=== PATIENT | female | born 1950 | race Caucasian/White ===

== ENCOUNTER 2016-11-05 05:23 | Day surgery (SDC) | payer MEDICARE, BC ==
[2016-11-05] MEDS ORDERED: Dextrose 5%-Lactated Ringers 1,000 ML IV SCH (06:00)
[2016-11-05] MEDS ORDERED: Propofol 200 MG/20 ML SDV ONE ×2 (07:06→07:08)
[2016-11-05] MEDS ORDERED: Midazolam 1 MG/ML 2 ML SDV ONE (07:14)
[2016-11-05] MEDS ORDERED: fentaNYL 100 MCG/2 ML SDV ONE (07:14)
[2016-11-05] MEDS ORDERED: Glycopyrrolate 0.2 MG/ML 2 ML SYRINGE IVPUSH ONE (07:15)
[2016-11-05 08:53] VITALS: BP 113/89
--- NOTE | 2016-11-08 13:23 | OR ---
DATE OF PROCEDURE: 11/05/2016 PREOPERATIVE DIAGNOSIS: History of Garcia's esophagus. POSTOPERATIVE DIAGNOSIS: History of Garcia's esophagus. PROCEDURE: Esophagogastroduodenoscopy with biopsies of the distal esophagus and esophagogastric junction. ANESTHESIA: IV sedation. INDICATION FOR PROCEDURE: This 65-year-old female with known history of Garcia's esophagus, status post Carmen fundoplication, and with this she has good symptom control. Plan is to proceed with an upper GI endoscopy with biopsies as indicated. Potential risks including bleeding and perforation were discussed, and the patient wishes to proceed. DETAILS OF PROCEDURE: The patient was taken to the operating room and was placed in a left lateral decubitus position. IV sedation was administered, after which the upper GI endoscope was passed orally through the length of the esophagus and into the stomach with retroflexion view of the fundus, and thereafter through the pyloric channel and into the duodenum. FINDINGS: Included normal hypopharynx, larynx, upper esophageal sphincter, and esophageal body. At the EG junction, there was a quite extensive upper extension of the gastroesophageal junction mucosal line. There were also multiple islands of gastric-type mucosa present, all consistent with Garcia's esophagus. There was no gross inflammation present and the patient had an intact Carmen effect. There was no plaque formation that suggested neoplastic change per site and the patient had no stricturing within the stomach apart from the Carmen effect on retroflexion. Proximal stomach was unremarkable. There were some minimal redness or abnormalities within the remainder of the stomach, pyloric channel, and duodenum to the junction of the third and fourth portions. At this point, multiple biopsies were obtained from all of the areas of potential concern within the distal esophagus and EG junction area. No bleeding from the biopsy sites were seen and the procedure was then concluded. It seemed like we were not seeing any progression toward dysplasia. The plan will be to repeat the endoscopy in 2 years. We will contact the patient regarding Path report and subsequent plan. Mario Garcia MD /[id number]
== END 2016-11-05 09:15 | disposition home or self-care (01) ==
LOC: JP.SDS 05:23
PROVIDERS: ATTEND Surgery
DX: K22.70 Barrett's esophagus without dysplasia (principal); K21.9 Gastro-esophageal reflux disease without esophagitis
CPT/HCPCS: 43239; J2704; J7042; 88305; J2250; J3010

== ENCOUNTER 2017-07-09 09:20 | Emergency (ER) | payer MEDICARE, BC ==
[2017-07-09] MEDS ORDERED: Propranolol 80 MG Cap.ER PO STA (09:58)
--- NOTE | 2017-07-09 10:05 | EDM.PDOC ---
ED HPI GENERAL MEDICAL PROBLEM - General Chief Complaint: Syncope Stated Complaint: MEDICAL VIA [facility] Time Seen by Provider: 07/09/17 09:45 Source of Information: Reports: Patient, EMS, Old Records, RN History Limitations: Reports: No Limitations - History of Present Illness INITIAL COMMENTS - FREE TEXT/NARRATIVE: 66 yo female here via EMS from her home with dizziness, a feeling of near syncope and wavy lines in her vision. Has been seen here in the ER for this this past September and multiple times in the clinic including neurological consultation with no definite cause found. At one point a neurologist theorized that these could be silent migraines and prescribed Topamax, but this made actually caused HUYNH's so it was stopped and nothing was given in its place for migraine prevention. Propranolol was also tried and she did not tolerated this either. Today's spell was the first time she's had the wavy vision, but the rest of her sx's today are familiar. Her symptoms had resolved by the time EMS arrived, but she had a transient recurrence while in the ambulance. Is mostly asymptomatic here in the ER. Her ROS today is otherwise negative. Onset: Today Onset Date: 07/09/17 Onset Time: 08:40 Duration: Minutes:, Resolved Prior to Arrival Location: Reports: Head Quality: Reports: Other (no actual pain) Severity: Moderate Improves with: Reports: Other (? sitting down) Worsens with: Reports: Other (? standing) Context: Reports: Other (Recurrent sx's for many months.) Associated Symptoms: Reports: Syncope (Feels pre-syncopal, has never actually passed out.). 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: Other (see below) (none) - Related Data Allergies Allergy/AdvReac Type Severity Reaction Status Date / Time No Known Allergies Allergy Verified 07/09/17 09:30 Home Meds: Home Meds Aspirin 81 mg PO DAILY 05/30/13 [History] Calcium Carbonate/Vitamin D3 [Calcium 500 + Vit D Caplet] 2 tab PO DAILY [History] Hydrochlorothiazide 25 mg PO DAILY 05/30/13 [History] Meclizine [Antivert] 12.5 mg PO DAILY PRN 05/30/13 [History] Lansoprazole [Prevacid] 30 mg PO DAILY 11/06/13 [History] Albuterol Sulfate [Proair Hfa] 2 puff INH Q4HR PRN 11/01/16 [History] EPINEPHrine [Epipen 2-Jed] 0.3 ml IM ASDIRECTED PRN 11/01/16 [History] Multivitamin with Minerals [Multiple Vitamin] 1 tab PO DAILY 03/08/17 [History] Ascorbic Acid [C-1000] 1 tab PO DAILY 07/09/17 [History] Magnesium Oxide [Magnesium] 500 mg PO ASDIRECTED 07/09/17 [History] Past Medical History HEENT History: Reports: Impaired Vision, Other (See Below) Other HEENT History: wears reading glasses, "ear problem-affecting balance and has noise in my ears" Cardiovascular History: Reports: Hypertension Other Cardiovascular History: History of PVC's Respiratory History: Reports: Bronchitis, Recurrent Gastrointestinal History: Reports: Diverticulosis, GERD Other Gastrointestinal History: Barretts syndrome 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 left arm. patella Neurological History: Reports: Concussion, Vertigo Endocrine/Metabolic History: Reports: Other (See Below) Other Endocrine/Metabolic History: nodule on thyroid being removed 07/16/17 - Infectious Disease History Infectious Disease History: Reports: Chicken Pox, Measles, Mumps - Past Surgical History HEENT Surgical History: Reports: Oral Surgery GI Surgical History: Reports: Appendectomy, EGD, Carmen Fundoplication Musculoskeletal Surgical History: Reports: Hip Replacement Social & Family History - Family History Family Medical History: Noncontributory - Tobacco Use Smoking Status *Q: Heavy Tobacco Smoker Years of Tobacco use: 50 Packs/Tins Daily: 1 Used Tobacco, but Quit: No Second Hand Smoke Exposure: No - Caffeine Use Caffeine Use: Reports: Coffee Other Caffeine Use: 8 cups per day - Alcohol Use Days Per Week of Alcohol Use: 2 Number of Drinks Per Day: 3 Total Drinks Per Week: 6 - Recreational Drug Use Recreational Drug Use: No ED ROS GENERAL - Review of Systems Review Of Systems: See Below Constitutional: Reports: No Symptoms HEENT: Reports: Vision Change (wavy vision transiently). Denies: Dental Pain, Ear Discharge, Ear Pain, Eye Discharge, Eye Pain, Hearing Loss, Nosebleed, Sinus Problem, Throat Pain, Throat Swelling Respiratory: Reports: No Symptoms Cardiovascular: Reports: Lightheadedness (with sx's today, not now), Syncope ( feels pre-syncopal when affected). Denies: Chest Pain, Blood Pressure Problem, Dyspnea on Exertion, Edema, Orthopnea Endocrine: Reports: No Symptoms GI/Abdominal: Reports: No Symptoms : Reports: No Symptoms Musculoskeletal: Reports: No Symptoms Skin: Reports: No Symptoms Neurological: Reports: Dizziness (when symptomatic), Difficulty Walking (when symptomatic). Denies: Confusion, Headache, Numbness, Seizure, Tingling, Change in Speech, Gait Disturbance Psychiatric: Reports: No Symptoms ED EXAM, DIZZINESS - Physical Exam Exam: See Below Exam Limited By: No Limitations General Appearance: Alert, WD/WN, No Apparent Distress Eye Exam: Bilateral Eye: EOMI, Normal Inspection, PERRL Nystagmus: No: worsens with head to L, worsens with head to R, reproducible, reversible, constant, short duration Ears: Normal External Exam, Normal Canal, Hearing Grossly Normal, Normal TMs Nose: Normal Inspection, Normal Mucosa, No Blood Throat/Mouth: Normal Inspection, Normal Lips, Normal Teeth, Normal Oropharynx, Normal Voice, No Airway Compromise Head Exam: Atraumatic, Normocephalic Vertigo: No: worsens with head to L, worsens with head to R, reproducible, reversible, constant, short duration Neck: Normal Inspection, Supple, Non-Tender Respiratory/Chest: No Respiratory Distress, Lungs Clear, Normal Breath Sounds, No Accessory Muscle Use Cardiovascular: Regular Rate, Rhythm, No Edema GI/Abdominal: Normal Bowel Sounds, Soft, Non-Tender, No Distention Neurological: Alert, Normal Mood/Affect, Normal Dorsiflexion, CN II-XII Intact, No Motor/Sensory Deficits, Oriented x 3 Extremities: Normal Inspection, Normal Range of Motion, Non-Tender, No Pedal Edema Psychiatric: Normal Affect, Normal Mood Skin Exam: Warm, Dry, Intact, Normal Color, No Rash Course - Vital Signs Last Recorded V/S: Last Vital Signs Temp 36.7 C 07/09/17 09:26 Pulse 77 07/09/17 10:53 Resp 16 07/09/17 10:53 BP 157/70 H 07/09/17 10:53 Pulse Ox 94 L 07/09/17 10:53 Orthostatic Blood Pressure [ 148/82 Standing] Orthostatic Blood Pressure [ 139/76 Sitting] Orthostatic Blood Pressure [ 125/81 Supine] - Orders/Labs/Meds Orders: Active Orders 24 hr Category Date Time Status Cardiac Monitoring [RC] .As Directed Care 07/09/17 09:28 Active Orthostatic Vital Signs [RC] ASDIRECTED Care 07/09/17 09:28 Active Labs: Laboratory Tests 07/09/17 Range/Units 10:00 Sodium 142 (140-148) mmol/L Potassium 3.6 (3.6-5.2) mmol/L Chloride 107 (100-108) mmol/L Carbon Dioxide 26 (21-32) mmol/L Anion Gap 9.5 (5.0-14.0) mmol/L BUN 11 (7-18) mg/dL Creatinine 0.7 (0.6-1.0) mg/dL Est Cr Clr Drug Dosing 60.84 mL/min Estimated GFR (MDRD) > 60 (>60) Glucose 92 (74-106) mg/dL Calcium 8.7 (8.5-10.1) mg/dL Magnesium 1.5 L (1.8-2.4) mg/dL Meds: Medications Discontinued Medications Generic Name Dose Route Start Last Admin Trade Name Freq PRN Reason Stop Dose Admin Magnesium Oxide 800 mg 07/09/17 10:42 07/09/17 10:52 Magnesium Oxide PO 07/09/17 10:43 800 mg ONETIME ONE Administration Propranolol HCl 80 mg 07/09/17 09:58 07/09/17 10:52 Inderal La PO 07/09/17 09:59 Not Given NOW STA Departure - Departure Time of Disposition: 11:15 Disposition: Home, Self-Care 01 Condition: Good Clinical Impression: Migraine variant, Hypomagnesemia - Discharge Information Referrals: PCP,None [Ordering Only Provider] - Forms: ED Department Discharge - My Orders Last 24 Hours: My Active Orders 07/09/17 09:28 Cardiac Monitoring [RC] .As Directed Orthostatic Vital Signs [RC] ASDIRECTED - Assessment/Plan Last 24 Hours: My Active Orders 07/09/17 09:28 Cardiac Monitoring [RC] .As Directed Orthostatic Vital Signs [RC] ASDIRECTED
[2017-07-09] MEDS ORDERED: Magnesium Oxide 400 MG Tab PO ONE (10:42)
[2017-07-09 10:53] VITALS: BP 157/70
== END 2017-07-09 11:27 | disposition home or self-care (01) ==
LOC: JP.ED 09:20
DX: E83.42 Hypomagnesemia (principal); G43.809 Other migraine, not intractable, without status migrainosus; I10 Essential (primary) hypertension; K21.9 Gastro-esophageal reflux disease without esophagitis; F17.210 Nicotine dependence, cigarettes, uncomplicated; Z79.82 Long term (current) use of aspirin; Z79.899 Other long term (current) drug therapy
CPT/HCPCS: 36415; 80048; 83735; 99284; A9270

== ENCOUNTER 2018-03-04 06:15 | Day surgery (SDC) | payer MEDICARE, BC ==
[2018-03-04] MEDS ORDERED: Bacitracin Oint 1 GM U/D Packet ONE (06:31)
[2018-03-04] MEDS ORDERED: Meropenem 500 MG in Sodium Chloride 0.9% 50 ML IV ONE (07:00)
[2018-03-04] MEDS ORDERED: Dextrose 5%-Lactated Ringers 1,000 ML IV SCH (07:00)
[2018-03-04] MEDS: Bupivacaine 0.5% 50 ML MDV ONE ×2 (07:02→08:03)
[2018-03-04] MEDS: Lidocaine 1% with EPINEPHrine 1:100,000 50 ML MDV ONE ×2 (07:03→08:03)
[2018-03-04] MEDS ORDERED: Propofol 200 MG/20 ML SDV ONE ×2 (07:06→07:07)
[2018-03-04] MEDS ORDERED: Midazolam 1 MG/ML 2 ML SDV ONE (07:06)
[2018-03-04] MEDS ORDERED: fentaNYL 100 MCG/2 ML SDV ONE (07:06)
[2018-03-04 09:43] VITALS: BP 141/86
--- NOTE | 2018-03-05 13:20 | OR ---
DATE OF PROCEDURE: 03/04/2018 PREOPERATIVE DIAGNOSES: 1. Irritated keratosis, right flank. 2. Inflamed epidermoid cyst, posterior base of neck. POSTOPERATIVE DIAGNOSES: 1. Irritated keratosis, right flank .. 2. Inflamed epidermoid cyst, posterior base of neck. OPERATIVE PROCEDURE: 1. Excision of irritated keratosis, right flank with layered closure ([id number]). 2. Excision of inflamed epidermoid cyst, posterior basal left neck with layered closure ([id number]). ANESTHESIA: Local plus IV sedation. INDICATION FOR PROCEDURE: The patient presents with an epidermoid cyst. This has been longstanding at the base of the left neck posteriorly. This recently began draining and has had some smoldering inflammation, but has decreased in size and appears ready for excision and at right flank, the patient has keratotic skin lesion that was also catching on her clothing and such and chronically irritated. Based on that, the plan is to proceed with excision of each of these. Potential risks including bleeding and infection were reviewed, and the patient wishes to proceed. DETAILS OF PROCEDURE: The patient was taken to the operating room, placed in a supine position. IV sedation was administered, after which the area around the right flank was prepped and draped. The area was anesthetized with 1% lidocaine mixed with Marcaine. A transversely oriented elliptical incision around the lesion removing a small amount of normal tissue around it was made and carried down through the skin and subcutaneous tissue and the lesion removed intact. The lesion plus margin itself was 1.2 cm and a layered closure of the incision length of 2.3 cm was accomplished with some 5-0 Vicryl stitch deep and a 5-0 Prolene skin stitch. The patient was then repositioned to expose the posterior aspect of the left neck. That area of the epidermis was then anesthetized with 1% lidocaine mixed with Marcaine, and a transverse elliptical incision was once again made through the skin and subcutaneous tissue and the cyst removed intact. In this case, the lesion plus margin itself measured 2.1 cm and a layered closure of 5.2 cm was accomplished with a deeper layer of 4-0 Vicryl stitch was placed followed by more superficial 5-0 Vicryl stitch and then a 5-0 Prolene skin stitch. Dressing was applied. The patient was taken to the recovery room in satisfactory condition. There were no complications. Mario Garcia MD /[id number]
== END 2018-03-04 10:08 | disposition home or self-care (01) ==
LOC: JP.SDS 06:15
PROVIDERS: ATTEND Surgery
DX: L82.0 Inflamed seborrheic keratosis (principal); L72.0 Epidermal cyst; I10 Essential (primary) hypertension; Z91.030 Bee allergy status
CPT/HCPCS: 11402; 11423; 12031; 12042; 88304; 88305; J2185; J2250; J2704; J3010; J3490; J7042; J7050

== ENCOUNTER 2018-04-29 16:48 | Emergency (ER) | payer MEDICARE, BC ==
[2018-04-29 17:23] VITALS: BP 145/76
[2018-04-29] MEDS ORDERED: Aspirin 81 MG Tab.Chew PO ONE (17:31)
--- NOTE | 2018-04-29 17:34 | EDM.PDOC ---
ED HPI GENERAL MEDICAL PROBLEM - General Chief Complaint: Chest Pain Stated Complaint: CHEST PAIN Time Seen by Provider: 04/29/18 17:27 Source of Information: Reports: Patient, RN Notes Reviewed History Limitations: Reports: No Limitations - History of Present Illness INITIAL COMMENTS - FREE TEXT/NARRATIVE: 67-year-old female presents to the emergency department today complaint of chest pain, states the chest pain started earlier today was present for a couple hours now has resolved she is chest pain-free at this time. No cardiac history, no nausea vomiting shortness of breath no diaphoresis. Does have a history of Garcia's esophagus denies Pain Score (Numeric/FACES): 0 - Related Data Allergies Allergy/AdvReac Type Severity Reaction Status Date / Time bee venom protein (honey bee) Allergy Cannot Verified 04/29/18 17:14 Remember Home Meds: Home Meds Aspirin 81 mg PO DAILY 05/30/13 [History] Calcium Carbonate/Vitamin D3 [Calcium 500 + Vit D Caplet] 2 tab PO DAILY [History] Meclizine [Antivert] 12.5 mg PO DAILY PRN 05/30/13 [History] hydroCHLOROthiazide [Hydrochlorothiazide] 25 mg PO DAILY 05/30/13 [History] Lansoprazole [Prevacid] 30 mg PO DAILY 11/06/13 [History] Albuterol Sulfate [Proair Hfa] 2 puff INH Q4HR PRN 11/01/16 [History] EPINEPHrine [Epipen 2-Jed] 0.3 ml IM ASDIRECTED PRN 11/01/16 [History] Multivitamin with Minerals [Multiple Vitamin] 1 tab PO DAILY 03/08/17 [History] Magnesium Oxide [Magnesium] 400 mg PO DAILY 07/09/17 [History] Fluticasone Propionate [Flonase] 2 spray JOSEP DAILY 02/28/18 [History] Levothyroxine [Synthroid] 88 mcg PO DAILY 02/28/18 [History] Past Medical History HEENT History: Reports: Impaired Vision, Other (See Below) Other HEENT History: wears reading glasses, "ear problem-affecting balance and has noise in my ears" Cardiovascular History: Reports: Hypertension Other Cardiovascular History: History of PVC's Respiratory History: Reports: Bronchitis, Recurrent Gastrointestinal History: Reports: Diverticulosis, GERD, Hiatal Hernia Other Gastrointestinal History: Barretts syndrome 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 left arm. patella Neurological History: Reports: Concussion, Vertigo Endocrine/Metabolic History: Reports: Other (See Below) Other Endocrine/Metabolic History: nodule on thyroid being removed 07/16/17 Oncologic (Cancer) History: Reports: Thyroid - Infectious Disease History Infectious Disease History: Reports: Chicken Pox, Measles, Mumps - Past Surgical History HEENT Surgical History: Reports: Oral Surgery Cardiovascular Surgical History: Reports: None Respiratory Surgical History: Reports: None GI Surgical History: Reports: Appendectomy, EGD, Carmen Fundoplication Endocrine Surgical History: Reports: Thyroidectomy Neurological Surgical History: Reports: Scoliosis Musculoskeletal Surgical History: Reports: Hip Replacement Social & Family History - Family History Family Medical History: Noncontributory - Tobacco Use Smoking Status *Q: Current Every Day Smoker Years of Tobacco use: 50 Packs/Tins Daily: 1 Used Tobacco, but Quit: No Second Hand Smoke Exposure: Yes - Caffeine Use Caffeine Use: Reports: Coffee Other Caffeine Use: 8 cups per day - Alcohol Use Days Per Week of Alcohol Use: 0 - Recreational Drug Use Recreational Drug Use: No ED ROS GENERAL - Review of Systems Review Of Systems: See Below Constitutional: Reports: No Symptoms. Denies: Diaphoresis HEENT: Reports: No Symptoms Respiratory: Reports: No Symptoms Cardiovascular: Reports: Chest Pain GI/Abdominal: Reports: No Symptoms. Denies: Nausea, Vomiting : Reports: No Symptoms Musculoskeletal: Reports: No Symptoms Skin: Reports: No Symptoms ED EXAM, GENERAL - Physical Exam Exam: See Below Exam Limited By: No Limitations General Appearance: Alert, WD/WN, No Apparent Distress Neck: Normal Inspection, Supple, Non-Tender, Full Range of Motion Respiratory/Chest: No Respiratory Distress, Lungs Clear, Normal Breath Sounds, No Accessory Muscle Use, Chest Non-Tender Cardiovascular: Regular Rate, Rhythm, No Murmur GI/Abdominal: Normal Bowel Sounds, Soft, Tender (Tender epigastric region) Course - Vital Signs Last Recorded V/S: Last Vital Signs Temp 96.2 F 04/29/18 17:22 Pulse 70 04/29/18 17:22 Resp 20 04/29/18 17:22 BP 145/76 H 04/29/18 17:22 Pulse Ox 96 04/29/18 17:22 - Orders/Labs/Meds Orders: Active Orders 24 hr Category Date Time Status Cardiac Monitoring [RC] .As Directed Care 04/29/18 17:31 Active EKG Documentation Completion [RC] ASDIRECTED Care 04/29/18 17:31 Active Chest 1V Frontal [CR] Stat Exams 04/29/18 17:31 Taken EKG 12 Lead [EK] Stat Ther 04/29/18 17:31 Ordered Labs: Laboratory Tests 04/29/18 04/29/18 Range/Units 17:45 17:45 WBC 8.5 (4.5-11.0) K/uL RBC 5.03 (3.30-5.50) M/uL Hgb 14.9 (12.0-15.0) g/dL Hct 44.6 (36.0-48.0) % MCV 89 (80-98) fL MCH 30 (27-31) pg MCHC 33 (32-36) % Plt Count 419 H (150-400) K/uL Neut % (Auto) 65 (36-66) % Lymph % (Auto) 24 (24-44) % Wise % (Auto) 8 H (2-6) % Eos % (Auto) 3 (2-4) % Baso % (Auto) 0 (0-1) % Sodium 140 (140-148) mmol/L Potassium 3.2 L (3.6-5.2) mmol/L Chloride 103 (100-108) mmol/L Carbon Dioxide 26 (21-32) mmol/L Anion Gap 14.2 H (5.0-14.0) mmol/L BUN 10 (7-18) mg/dL Creatinine 0.8 (0.6-1.0) mg/dL Est Cr Clr Drug Dosing 52.49 mL/min Estimated GFR (MDRD) > 60 (>60) Glucose 88 (74-106) mg/dL Calcium 8.6 (8.5-10.1) mg/dL Total Bilirubin 0.6 (0.2-1.0) mg/dL AST 18 (15-37) U/L ALT 27 (12-78) U/L Alkaline Phosphatase 61 (46-116) U/L Troponin I < 0.017 (0.000-0.056) ng/mL Total Protein 6.4 (6.4-8.2) g/dL Albumin 3.5 (3.4-5.0) g/dL Globulin 2.9 (2.3-3.5) g/dL Albumin/Globulin Ratio 1.2 (1.2-2.2) Meds: Medications Discontinued Medications Generic Name Dose Route Start Last Admin Trade Name Vlad PRN Reason Stop Dose Admin Aspirin 324 mg 04/29/18 17:31 04/29/18 17:40 Aspirin PO 04/29/18 17:32 324 mg ONETIME ONE Administration Departure - Departure Time of Disposition: 18:20 Disposition: Home, Self-Care 01 Condition: Fair Clinical Impression: Gastroesophageal reflux disease Qualifiers: Esophagitis presence: esophagitis presence not specified Qualified Code(s): K21.9 - Gastro-esophageal reflux disease without esophagitis Referrals: Srinivas Peterson MD [Primary Care Provider] - Forms: ED Department Discharge Additional Instructions: Please followup with your primary care provider in 3-5 days if not better, please call return to the emergency department with worsening of symptoms. - My Orders Last 24 Hours: My Active Orders 04/29/18 17:31 Cardiac Monitoring [RC] .As Directed EKG Documentation Completion [RC] ASDIRECTED Chest 1V Frontal [CR] Stat EKG 12 Lead [EK] Stat - Assessment/Plan Last 24 Hours: My Active Orders 04/29/18 17:31 Cardiac Monitoring [RC] .As Directed EKG Documentation Completion [RC] ASDIRECTED Chest 1V Frontal [CR] Stat EKG 12 Lead [EK] Stat Plan: Assessment Acuity = acute Site and laterality = epigastric pain complicated patient with known history of Garcia's esophagus Etiology = probable gastroesophageal reflux disease Manifestations = none Location of injury = Home Lab values = CBC unremarkable, potassium low at 3.2 consistent hypokalemia, troponin is negative, EKG demonstrates normal sinus rhythm similar EKG to 2017 chest x-ray I did review films myself I cannot appreciate any acute process, the official read from radiology is pending Plan I did review lab work EKG chest x-ray results with her her heart score is 3 she is in the low risk category she elected to do watchful waiting she's, continue to follow-up with her primary care provider next 3-5 days if no improvement] This note was dictated using [employer] voice recognition software please call with any questions on syntax or grammar.
--- NOTE | 2018-04-30 08:26 | CR ---
CHEST: Portable CLINICAL HISTORY:Chest pain COMPARISON:2017 FINDINGS: The heart size, pulmonary vascular and hilar structures are normal. No infiltrate effusion or pneumothorax is seen. The lungs are hyperaerated. There is a small granuloma in the right lower l obe. IMPRESSION: No acute cardiopulmonary process. Emphysematous changes
== END 2018-04-29 18:35 | disposition home or self-care (01) ==
LOC: JP.ED 16:48
DX: K21.9 Gastro-esophageal reflux disease without esophagitis (principal); I10 Essential (primary) hypertension; F17.210 Nicotine dependence, cigarettes, uncomplicated; Z79.82 Long term (current) use of aspirin; Z79.899 Other long term (current) drug therapy; Z91.030 Bee allergy status
CPT/HCPCS: 36415; 71045; 80053; 84484; 85025; 93005; 99285; A9270

== ENCOUNTER 2018-09-12 11:29 | Emergency (ER) | payer MEDICARE, BC ==
[2018-09-12 11:39] VITALS: BP 147/84
--- NOTE | 2018-09-12 12:06 | EDM.PDOC ---
ED HPI GENERAL MEDICAL PROBLEM - General Chief Complaint: Neurological Problem Stated Complaint: [facility] Time Seen by Provider: 09/12/18 11:55 Source of Information: Reports: Patient, EMS, Old Records History Limitations: Reports: No Limitations - History of Present Illness INITIAL COMMENTS - FREE TEXT/NARRATIVE: 67 yo female with chronic light-headedness that waxes and wanes for a couple yrs presents via EMS for a transient worsening of the same. Has seen many specialists and has had blood work and no explanation has been uncovered. She was traveling by car to a [employer] appt with her brother driving and she mentioned that she was worse and he stopped and called 911. She is much better on arrival. EMS noted normal vitals. She has a BP machine at home and has always had normal BP and HR when she gets her spells(often while seated). She has no recent fever, diarrhea, nausea, vomting, or bleeding. No vertigo. Does have migraines that are generally without the HUYNH component. Rx have been tried for the migraines without benefit. Wonders if these spells are actually migraines. No syncopal episodes. 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: Other (see below) (none) - Related Data Allergies Allergy/AdvReac Type Severity Reaction Status Date / Time bee venom protein (honey bee) Allergy Cannot Verified 09/12/18 11:31 Remember Home Meds: Home Meds Aspirin 81 mg PO DAILY 05/30/13 [History] Calcium Carbonate/Vitamin D3 [Calcium 500 + Vit D Caplet] 1 tab PO DAILY [History] hydroCHLOROthiazide [Hydrochlorothiazide] 25 mg PO DAILY 05/30/13 [History] Lansoprazole [Prevacid] 30 mg PO DAILY 11/06/13 [History] Albuterol Sulfate [Proair Hfa] 2 puff INH Q4HR PRN 11/01/16 [History] EPINEPHrine [Epipen 2-Jed] 0.3 ml IM ASDIRECTED PRN 11/01/16 [History] Multivitamin with Minerals [Multiple Vitamin] 1 tab PO DAILY 03/08/17 [History] Magnesium Oxide [Magnesium] 400 mg PO DAILY 07/09/17 [History] Fluticasone Propionate [Flonase] 2 spray JOSEP DAILY 02/28/18 [History] Levothyroxine [Synthroid] 88 mcg PO DAILY 02/28/18 [History] Potassium Chloride 20 meq PO DAILY 09/09/18 [History] clonazePAM [Klonopin] 0.5 mg PO BID 09/09/18 [History] Past Medical History HEENT History: Reports: Impaired Vision, Other (See Below) Other HEENT History: wears reading glasses, "ear problem-affecting balance and has noise in my ears" Cardiovascular History: Reports: Hypertension Other Cardiovascular History: History of PVC's Respiratory History: Reports: Bronchitis, Recurrent Gastrointestinal History: Reports: Diverticulosis, GERD, Hiatal Hernia Other Gastrointestinal History: Barretts syndrome [employer]OR [employer]ING 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 left arm. patella Neurological History: Reports: Concussion, Migraines, Vertigo Endocrine/Metabolic History: Reports: Hypothyroidism, Other (See Below) Other Endocrine/Metabolic History: nodule on thyroid being removed 07/16/17 Oncologic (Cancer) History: Reports: Thyroid - Infectious Disease History Infectious Disease History: Reports: Chicken Pox, Measles, Mumps - Past Surgical History Head Surgeries/Procedures: Reports: None Cardiovascular Surgical History: Reports: None Respiratory Surgical History: Reports: None GI Surgical History: Reports: Appendectomy, EGD, Carmen Fundoplication Endocrine Surgical History: Reports: Thyroidectomy Neurological Surgical History: Reports: Scoliosis Musculoskeletal Surgical History: Reports: Hip Replacement Oncologic Surgical History: Reports: None Social & Family History - Family History Family Medical History: Noncontributory - Tobacco Use Smoking Status *Q: Current Every Day Smoker Years of Tobacco use: 40 Packs/Tins Daily: 1 Used Tobacco, but Quit: No Second Hand Smoke Exposure: No - Caffeine Use Caffeine Use: Reports: Coffee Other Caffeine Use: 8 cups per day - Recreational Drug Use Recreational Drug Use: No ED ROS GENERAL - Review of Systems Review Of Systems: See Below Constitutional: Reports: No Symptoms HEENT: Reports: No Symptoms Respiratory: Reports: No Symptoms Cardiovascular: Reports: Lightheadedness Endocrine: Reports: No Symptoms GI/Abdominal: Reports: No Symptoms : Reports: No Symptoms Musculoskeletal: Reports: No Symptoms Skin: Reports: No Symptoms Neurological: Reports: No Symptoms Psychiatric: Reports: No Symptoms ED EXAM, NEURO - Physical Exam Exam: See Below Exam Limited By: No Limitations General Appearance: Alert, WD/WN, No Apparent Distress Eye Exam: Bilateral Eye: Normal Inspection, PERRL Ears: Normal External Exam, Normal Canal, Hearing Grossly Normal, Normal TMs Nose: Normal Inspection, Normal Mucosa, No Blood Throat/Mouth: Normal Inspection, Normal Lips, Normal Oropharynx, Normal Voice, No Airway Compromise Head Exam: Atraumatic, Normocephalic Neck: Normal Inspection, Non-Tender Respiratory/Chest: No Respiratory Distress, Lungs Clear, Normal Breath Sounds, No Accessory Muscle Use Cardiovascular: Regular Rate, Rhythm, No Edema GI/Abdominal: Normal Bowel Sounds, Soft, Non-Tender, No Distention Neurological: Alert, Normal Mood/Affect, Normal Dorsiflexion, CN II-XII Intact, No Motor/Sensory Deficits, Oriented x 3 Back Exam: Normal Inspection. No: CVA Tenderness (R), CVA Tenderness (L) Extremities: Normal Inspection, Normal Range of Motion, Non-Tender, No Pedal Edema Psychiatric: Normal Affect, Normal Mood Skin Exam: Warm, Dry, Intact, Normal Color, No Rash Course - Vital Signs Last Recorded V/S: Last Vital Signs Temp 36.6 C 09/12/18 11:38 Pulse 71 09/12/18 11:38 Resp 16 09/12/18 11:38 BP 147/84 H 09/12/18 11:38 Pulse Ox 96 09/12/18 11:38 - Orders/Labs/Meds Orders: Active Orders 24 hr Category Date Time Status Orthostatic Vital Signs [RC] ASDIRECTED Care 09/12/18 11:59 Inactive Departure - Departure Time of Disposition: 12:16 Disposition: Home, Self-Care 01 Condition: Good Clinical Impression: Light headedness - Discharge Information *PRESCRIPTION DRUG MONITORING PROGRAM REVIEWED*: No *COPY OF PRESCRIPTION DRUG MONITORING REPORT IN PATIENT SHIRLENE: No Referrals: PCP,None [Primary Care Provider] - Forms: ED Department Discharge Additional Instructions: Continue your current meds. Try the "natural" migraine prevention strategies to see if they can reduce the frequency of your attacks. - My Orders Last 24 Hours: My Active Orders 09/12/18 11:59 Orthostatic Vital Signs [RC] ASDIRECTED - Assessment/Plan Last 24 Hours: My Active Orders 09/12/18 11:59 Orthostatic Vital Signs [RC] ASDIRECTED
== END 2018-09-12 12:36 | disposition home or self-care (01) ==
LOC: JP.ED 11:29
DX: R42 Dizziness and giddiness (principal); F17.210 Nicotine dependence, cigarettes, uncomplicated; I10 Essential (primary) hypertension; E03.9 Hypothyroidism, unspecified; K21.9 Gastro-esophageal reflux disease without esophagitis; Z79.82 Long term (current) use of aspirin; Z79.899 Other long term (current) drug therapy; Z91.030 Bee allergy status
CPT/HCPCS: 99284

== ENCOUNTER 2018-09-25 07:18 | Day surgery (SDC) | payer MEDICARE, BC ==
[~2018-09-25 07:18] MED LIST: Midazolam 1 MG/ML 2 ML SDV ONE; Propofol 200 MG/20 ML SDV ONE; fentaNYL 100 MCG/2 ML SDV ONE
[2018-09-25] MEDS ORDERED: Dextrose 5%-Lactated Ringers 1,000 ML IV SCH (07:30)
[2018-09-25 11:03] VITALS: BP 141/76
--- NOTE | 2018-09-29 13:15 | OR ---
DATE OF PROCEDURE: 09/25/2018 PREOPERATIVE DIAGNOSIS: Right upper abdominal pain. POSTOPERATIVE DIAGNOSES: 1. Right abdominal pain with. a. 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 b. Mild antral gastritis. 2. Flexible colonoscopy showing limited sigmoid colon diverticulosis. OPERATIVE PROCEDURES: 1. Esophagogastroduodenoscopy with antral biopsies for CLOtest ([id number]). 2. Flexible colonoscopy with random colorectal biopsies to rule out microscopic colitis ([id number]). ANESTHESIA: IV sedation. INDICATION FOR PROCEDURE: This is a 67-year-old presenting with some right upper quadrant pain. The plan is to proceed with upper and lower endoscopies with biopsies and/or polypectomies as indicated. Potential risks including bleeding and perforation were discussed, and the patient wishes to proceed. DETAILS OF PROCEDURE: The patient was taken to the operating room and placed in a left lateral decubitus position. IV sedation was administered, after which the upper GI endoscope was passed orally through the length of the esophagus and into the stomach with retroflexion view of the fundus and thereafter through the pyloric channel and into the duodenum at the junction of the third and fourth portions. Findings included normal hypopharynx, larynx, upper esophageal sphincter, and esophageal body. At the EG junction, the patient had an intact Carmen effect. The previously noted Garcia's esophagus appeared to have resolved as there was no upward extension of the gastroesophageal junction mucosal line above the upper gastric folds at this point. There is no stricturing or narrowing at the Carmen fundoplication. Within the antrum, there was some mild patchy redness without erosions or ulcers. The pyloric channel and duodenum at the junction of the third and fourth portions were otherwise unremarkable. Biopsies were then obtained from the antrum and sent for CLOtest for H. pylori. Minimal bleeding from the biopsy site was seen, and the procedure then concluded. Attention was taken to the colonoscopy at this point. Initial digital rectal exam was performed and was unremarkable. Colonoscope was then passed into the level of the rectum with retroflexion revealing uncomplicated hemorrhoidal columns. The scope was then eventually passed to the level of the cecum. The prep was quite good with only small liquid stool being present. Overall, no gross abnormalities were noted. No diverticula. No areas of obvious colitis. No polyps or other signs of neoplasia throughout the length of the colon and rectum. Random colorectal biopsies were obtained to rule out microscopic colitis. Minimal bleeding from the biopsy site was seen, and the procedure then concluded. At this point, we do not have a good answer for the patient's right upper quadrant pain. We will obtain a HIDA scan next Saturday and see her in the clinic following that examination. Mario Garcia MD /[id number]
== END 2018-09-25 10:15 | disposition home or self-care (01) ==
LOC: JP.SDS 07:18
PROVIDERS: ATTEND Surgery
DX: K29.50 Unspecified chronic gastritis without bleeding (principal); K57.30 Diverticulosis of large intestine without perforation or abscess without bleeding; K64.9 Unspecified hemorrhoids; I10 Essential (primary) hypertension; K21.9 Gastro-esophageal reflux disease without esophagitis; C73 Malignant neoplasm of thyroid gland; F17.200 Nicotine dependence, unspecified, uncomplicated; Z91.030 Bee allergy status
CPT/HCPCS: 43239; 45378; 87081; J2250; J2704; J3010; J7042; 88305

== ENCOUNTER 2018-09-27 08:51 | Emergency (ER) | payer MEDICARE, BC ==
[2018-09-27 08:54] VITALS: BP 132/72
[2018-09-27] MEDS ORDERED: Ondansetron 4 MG/2 ML SDV IVPUSH ONE (08:58)
[2018-09-27] MEDS ORDERED: HYDROmorphone 0.5 MG/0.5 ML Syringe IVPUSH ONE ×2 (08:59→09:16)
[2018-09-27] MEDS ORDERED: Sodium Chloride 0.9% 1,000 ML IV SCH (09:00)
[2018-09-27] MEDS ORDERED: HYDROmorphone 0.5 MG/0.5 ML Syringe ONE (09:17)
[2018-09-27] MEDS ORDERED: Iopamidol 612 MG/ML 100 ML Bottle IV STA (09:48)
--- NOTE | 2018-09-27 11:54 | CRLCT ---
Indication: Severe abdominal pain. Technique: Multiple contiguous axial images were obtained from the lung bases through the symphysis pubis after the intravenous administration of 100 milliliters Isovue. Please note that all CT scans at this facility use dose modulation, iterative reconstruction, and/or weight-based dosing when appropriate to reduce radiation dose to as low as reasonably achievable. Comparison: July 23, 2018. Findings: Heart is normal in size. Coronary artery calcifications are identified. Emphysematous changes are identified at the lung bases. Scar is identified within the lung bases. The liver, gallbladder, spleen, pancreas, adrenals, and kidneys are normal. No intrahepatic biliary ductal dilatation is identified. Surgical clips are identified in the left upper quadrant. No hydronephrosis is identified. In the pelvis, the urinary bladder is normal. No definite uterus is seen. Streak artifact from a right hip arthroplasty degrades multiple images. The small and large bowel are normal in caliber. No free air or free fluid is identified within the abdomen or pelvis. The aorta is normal in caliber. There is questionable thickening of the wall of the stomach. This can be seen with gastritis. Degenerative changes of the spine are seen. Impression: Questionable thickening of the wall of the stomach, which can be seen with gastritis. Emphysema. Please note that all CT scans at this facility use dose modulation, iterative reconstruction, and/or weight-based dosing when appropriate to reduce radiation dose to as low as reasonably achievable. Dictated by Shelbie Medel MD @ Sep 27 2018 11:37AM Signed by Dr. Shelbie Medel @ Sep 27 2018 11:53AM
--- NOTE | 2018-09-27 12:42 | EDM.PDOC ---
ED HPI GENERAL MEDICAL PROBLEM - General Chief Complaint: Abdominal Pain Stated Complaint: [facility] Time Seen by Provider: 09/27/18 09:00 Source of Information: Reports: Patient History Limitations: Reports: No Limitations - History of Present Illness INITIAL COMMENTS - FREE TEXT/NARRATIVE: pt arrived with very acute pain in the rt upper abdoman. She had alot pain in the abdoman with deep breathing. She was not vomiting. She had a colonoscopy 2 days ago with some biopsies. Onset: Today, Sudden Duration: Hour(s): Location: Reports: Abdomen, Other ( very severe abdomanal pain) Associated Symptoms: Reports: No Other Symptoms - Related Data Allergies Allergy/AdvReac Type Severity Reaction Status Date / Time bee venom protein (honey bee) Allergy Cannot Verified 09/25/18 07:34 Remember Home Meds: Home Meds Aspirin 81 mg PO DAILY 05/30/13 [History] hydroCHLOROthiazide [Hydrochlorothiazide] 25 mg PO DAILY 05/30/13 [History] Lansoprazole [Prevacid] 30 mg PO DAILY 11/06/13 [History] Albuterol Sulfate [Proair Hfa] 2 puff INH Q4HR PRN 11/01/16 [History] EPINEPHrine [Epipen 2-Jed] 0.3 ml IM ASDIRECTED PRN 11/01/16 [History] Multivitamin with Minerals [Multiple Vitamin] 1 tab PO DAILY 03/08/17 [History] Magnesium Oxide [Magnesium] 400 mg PO DAILY 07/09/17 [History] Fluticasone Propionate [Flonase] 2 spray JOSEP DAILY 02/28/18 [History] Levothyroxine [Synthroid] 88 mcg PO DAILY 02/28/18 [History] Potassium Chloride 20 meq PO DAILY 09/09/18 [History] clonazePAM [Klonopin] 0.5 mg PO BID PRN 09/09/18 [History] Past Medical History HEENT History: Reports: Impaired Vision, Other (See Below) Other HEENT History: wears reading glasses, "ear problem-affecting balance and has noise in my ears" Cardiovascular History: Reports: Hypertension Other Cardiovascular History: History of PVC's Respiratory History: Reports: Bronchitis, Recurrent Gastrointestinal History: Reports: Diverticulosis, GERD, Hiatal Hernia Other Gastrointestinal History: Barretts syndrome 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 left arm. patella Neurological History: Reports: Concussion, Migraines, Vertigo Endocrine/Metabolic History: Reports: Hypothyroidism, Other (See Below) Other Endocrine/Metabolic History: nodule on thyroid being removed 07/16/17 Oncologic (Cancer) History: Reports: Thyroid - Infectious Disease History Infectious Disease History: Reports: Chicken Pox, Measles, Mumps, Rubella - Past Surgical History Head Surgeries/Procedures: Reports: None HEENT Surgical History: Reports: None Cardiovascular Surgical History: Reports: None Respiratory Surgical History: Reports: None GI Surgical History: Reports: Appendectomy, Colonoscopy, EGD, Carmen Fundoplication Endocrine Surgical History: Reports: Thyroidectomy Neurological Surgical History: Reports: Scoliosis Musculoskeletal Surgical History: Reports: Hip Replacement Oncologic Surgical History: Reports: None Dermatological Surgical History: Reports: None Social & Family History - Family History Family Medical History: Noncontributory - Tobacco Use Smoking Status *Q: Never Smoker - Caffeine Use Caffeine Use: Reports: Coffee Other Caffeine Use: 8 cups per day - Recreational Drug Use Recreational Drug Use: No ED ROS GENERAL - Review of Systems Review Of Systems: See Below Constitutional: Reports: No Symptoms HEENT: Reports: No Symptoms Respiratory: Reports: No Symptoms Cardiovascular: Reports: No Symptoms Endocrine: Reports: No Symptoms GI/Abdominal: Reports: Abdominal Pain, Other (pt had a colonoscopy 2 days ago. ) : Reports: No Symptoms Musculoskeletal: Reports: No Symptoms Skin: Reports: No Symptoms Neurological: Reports: No Symptoms ED EXAM, GI/ABD - Physical Exam Exam: See Below Text/Narrative:: pt arrived with acute pain in the rt side of the abdoman. She did have a colonoscopy 2 daysag. She has not been vomiting . She is very uncomfortable at this time. Exam Limited By: No Limitations General Appearance: Alert, Anxious, Severe Distress Ears: Normal TMs Nose: Normal Inspection Throat/Mouth: Normal Inspection Head: Atraumatic Neck: Normal Inspection Respiratory/Chest: No Respiratory Distress Cardiovascular: Regular Rate, Rhythm GI/Abdominal Exam: Other ( Pt has severe distress in the upper rt abdoman. ) (Female) Exam: Deferred Rectal (Female) Exam: Deferred Back Exam: Normal Inspection Extremities: Normal Inspection Neurological: Alert, Oriented, Normal Cognition Psychiatric: Anxious Course - Vital Signs Last Recorded V/S: Last Vital Signs Temp 36.2 C 09/27/18 08:56 Pulse Resp 14 09/27/18 08:56 BP 132/72 09/27/18 08:56 Pulse Ox - Orders/Labs/Meds Orders: Active Orders 24 hr Category Date Time Status Sodium Chloride 0.9% [Normal Saline] 1,000 ml Med 09/27/18 09:00 Active IV ASDIRECTED Medication Orders Sodium Chloride (Normal Saline) 1,000 mls @ 500 mls/hr IV ASDIRECTED DARIUSZ Last Admin: 09/27/18 09:08 Dose: 500 mls/hr Labs: Laboratory Tests 09/27/18 09/27/18 09/27/18 Range/Units 09:05 09:05 11:49 WBC 12.2 H (4.5-11.0) K/uL RBC 4.84 (3.30-5.50) M/uL Hgb 14.7 (12.0-15.0) g/dL Hct 44.2 (36.0-48.0) % MCV 91 (80-98) fL MCH 30 (27-31) pg MCHC 33 (32-36) % Plt Count 459 H (150-400) K/uL Neut % (Auto) 80 H (36-66) % Lymph % (Auto) 13 L (24-44) % Day % (Auto) 6 (2-6) % Eos % (Auto) 1 L (2-4) % Baso % (Auto) 0 (0-1) % Sodium 145 (140-148) mmol/L Potassium 3.2 L (3.6-5.2) mmol/L Chloride 105 (100-108) mmol/L Carbon Dioxide 28 (21-32) mmol/L Anion Gap 15.2 H (5.0-14.0) mmol/L BUN 11 (7-18) mg/dL Creatinine 0.8 (0.6-1.0) mg/dL Est Cr Clr Drug Dosing 52.49 mL/min Estimated GFR (MDRD) > 60 (>60) Glucose 97 (74-106) mg/dL Calcium 9.0 (8.5-10.1) mg/dL Total Bilirubin 1.1 H D (0.2-1.0) mg/dL AST 14 L (15-37) U/L ALT 24 (12-78) U/L Alkaline Phosphatase 63 (46-116) U/L C-Reactive Protein 1.14 H (0.0-0.3) mg/dL Total Protein 6.6 (6.4-8.2) g/dL Albumin 3.4 (3.4-5.0) g/dL Globulin 3.2 (2.3-3.5) g/dL Albumin/Globulin Ratio 1.1 L (1.2-2.2) Urine Color Yellow Urine Appearance Clear Urine pH 7.0 (4.5-8.0) Ur Specific [place] 1.010 (1.008-1.030) Urine Protein Negative (NEGATIVE) mg/dL Urine Glucose (UA) Normal (NEGATIVE) mg/dL Urine Ketones Negative (NEGATIVE) mg/dL Urine Occult Blood Negative (NEGATIVE) Urine Nitrite Negative (NEGATIVE) Urine Bilirubin Negative (NEGATIVE) Urine Urobilinogen 1 (NORMAL) mg/dL Ur Leukocyte Esterase Small (NEGATIVE) Urine RBC 0-5 (0-5) Urine WBC 5-10 H (0-5) Ur Epithelial Cells Moderate Amorphous Sediment Not seen Urine Bacteria Few Urine Mucus Moderate Meds: Medications Generic Name Dose Route Start Last Admin Trade Name Vlad PRN Reason Stop Dose Admin Sodium Chloride 1,000 mls @ 500 mls/hr 09/27/18 09:00 09/27/18 09:08 Normal Saline IV 500 mls/hr ASDIRECTED DARIUSZ Administration Discontinued Medications Generic Name Dose Route Start Last Admin Trade Name Vlad PRN Reason Stop Dose Admin Hydromorphone HCl 0.5 mg 09/27/18 08:59 09/27/18 09:06 Dilaudid IVPUSH 09/27/18 09:00 0.5 mg ONETIME ONE Administration Hydromorphone HCl 0.5 mg 09/27/18 09:16 09/27/18 09:19 Dilaudid IVPUSH 09/27/18 09:17 0.5 mg ONETIME ONE Administration Hydromorphone HCl Confirm 09/27/18 09:17 09/27/18 09:50 Dilaudid Administered 09/27/18 09:18 Not Given Dose 0.5 mg .ROUTE .STK-MED ONE Sodium Chloride 70 mls @ 3 mls/sec 09/27/18 09:48 09/27/18 10:59 Normal Saline IV 09/27/18 09:49 3 mls/sec ASDIRECTED STA Administration Iopamidol 100 ml 09/27/18 09:48 09/27/18 10:59 Isovue-300 (61%) IV 09/27/18 09:49 100 ml . DIRECTED STA Administration Ondansetron HCl 4 mg 09/27/18 08:58 09/27/18 09:06 Zofran IVPUSH 09/27/18 08:59 4 mg ONETIME ONE Administration Pantoprazole Sodium 40 mg 09/27/18 13:52 09/27/18 14:08 Protonix Iv IVPUSH 09/27/18 13:53 40 mg ONETIME ONE Administration - Re-Assessments/Exams Free Text/Narrative Re-Assessment/Exam: 09/27/18 12:43 Pt arrived having very severe abdomanal pain mainly on the rt side. Her lab work showed mild elevation of the wbc at 12,000. Her crp was mildly elevated. Her other labs looked good except her k remains on the low side. 09/27/18 13:49 Pt had a cat scan which did not show free air. She has remained pain free since the pain was settled down. Departure - Departure Time of Disposition: 13:50 Disposition: Home, Self-Care 01 Condition: Fair Clinical Impression: Abdominal pain, Normal colonoscopy, Gastrointestinal irritation - Discharge Information Instructions: Abdominal Pain, Adult, [id number] Referrals: PCP,None [Primary Care Provider] - Forms: ED Department Discharge Care Plan Goals: rtc if pain should reoccur, lite diet today mainly liquids, prilosec 20mg daily for 10days. at bedtime, cont prevacid in the am. RTc as scheduled for the scan, on sat. See Dr Garcia after the scan - My Orders Last 24 Hours: My Active Orders 09/27/18 09:00 Sodium Chloride 0.9% [Normal Saline] 1,000 ml IV ASDIRECTED - Assessment/Plan Last 24 Hours: My Active Orders 09/27/18 09:00 Sodium Chloride 0.9% [Normal Saline] 1,000 ml IV ASDIRECTED
[2018-09-27] MEDS ORDERED: Pantoprazole 40 MG Vial IVPUSH ONE (13:52)
== END 2018-09-27 15:12 | disposition home or self-care (01) ==
LOC: JP.ED 08:51
DX: K31.89 Other diseases of stomach and duodenum (principal); I10 Essential (primary) hypertension; R10.11 Right upper quadrant pain; Z91.030 Bee allergy status; Z79.82 Long term (current) use of aspirin; Z79.899 Other long term (current) drug therapy
CPT/HCPCS: 36415; 74177; 80053; 81001; 85025; 86140; 96361; 96374; 96375; 99285; C9113; J1170; J2405; J7030; Q9967

== ENCOUNTER 2018-10-07 08:18 | Day surgery (SDC) | payer MEDICARE, BC ==
[~2018-10-07 08:18] MED LIST changes: +Dexamethasone 4 MG/ML SDV ONE; +Glycopyrrolate 0.2 MG/ML 5 ML MDV ONE; -Midazolam 1 MG/ML 2 ML SDV ONE; +Neostigmine Methylsulfate 1 MG/ML 5 ML Syringe ONE; +Ondansetron 4 MG/2 ML SDV ONE; +Rocuronium 50 MG/5 ML Vial ONE; +Succinylcholine 200 MG/10 ML MDV ONE; -fentaNYL 100 MCG/2 ML SDV ONE; +fentaNYL 250 MCG/5 ML SDV ONE
[2018-10-07] MEDS ORDERED: Acetaminophen 500 MG Tab PO ONE (08:30)
[2018-10-07] MEDS ORDERED: Dextrose 5%-Lactated Ringers 1,000 ML IV SCH (09:00)
[2018-10-07] MEDS ORDERED: Albuterol/Ipratropium 3.0-0.5 MG/3 ML Neb Soln NEB ONE (09:30)
[2018-10-07] MEDS ORDERED: cefOXitin 2 GM in Sodium Chloride 0.9% 50 ML IV ONE (10:00)
[2018-10-07] MEDS ORDERED: Ketamine 500 MG/5 ML MDV IV SCH (10:15)
[2018-10-07] MEDS ORDERED: Ropivacaine 31 ML, Dexamethasone 8 MG, EPINEPHrine 0.4 MG, Sodium Chloride 0.9% 46.6 ML NERVRT SCH ×4 (10:15)
[2018-10-07] MEDS ORDERED: Lactated Ringers 1,000 ML ONE (11:02)
[2018-10-07] MEDS ORDERED: fentaNYL 100 MCG/2 ML SDV ONE (11:19)
[2018-10-07] MEDS ORDERED: Sugammadex Sodium 200 MG/2 ML VIAL ONE (11:43)
[2018-10-07] MEDS: Ondansetron 4 MG/2 ML SDV IVPUSH PRN ×2 (12:47→17:14)
[2018-10-07] MEDS ORDERED: Acetaminophen/HYDROcodone 325-5 MG Tab PO PRN (12:55)
[2018-10-07] MEDS ORDERED: ClonazePAM 0.5 MG Tab PO PRN (12:57)
[2018-10-07] MEDS ORDERED: Albuterol/Ipratropium 3.0-0.5 MG/3 ML Neb Soln INH PRN (13:01)
[2018-10-07] MEDS ORDERED: Pantoprazole 40 MG Vial IV SCH (14:00)
[2018-10-07] MEDS ORDERED: HYDROmorphone 1 MG/ML Syringe IVPUSH PRN (14:36)
[2018-10-07] MEDS: Albuterol/Ipratropium 3.0-0.5 MG/3 ML Neb Soln INH SCH ×2 (14:49→20:27)
[2018-10-07] MEDS: Dextrose 5%-Lact Ringers w/KCl 1,000 ML IV SCH (15:06)
[2018-10-07] MEDS: cefOXitin 2 GM in Sodium Chloride 0.9% 50 ML IV SCH ×2 (16:23→22:06)
[2018-10-08] MEDS: Dextrose 5%-Lact Ringers w/KCl 1,000 ML IV SCH (01:06)
[2018-10-08] MEDS: cefOXitin 2 GM in Sodium Chloride 0.9% 50 ML IV SCH (03:41)
[2018-10-08] MEDS ORDERED: Levothyroxine 88 MCG Tab PO SCH (06:00)
[2018-10-08] MEDS: Albuterol/Ipratropium 3.0-0.5 MG/3 ML Neb Soln INH SCH ×2 (07:08→10:36)
[2018-10-08] MEDS ORDERED: Hydrochlorothiazide 25 MG Tab PO SCH (09:00)
[2018-10-08] MEDS ORDERED: Aspirin 81 MG Tab.EC PO SCH (09:00)
[2018-10-08] MEDS ORDERED: Fluticasone Propionate Nasal Spray 16 GM Bottle NASBOTH SCH (09:00)
[2018-10-08 11:01] VITALS: BP 122/56
--- NOTE | 2018-10-09 13:25 | DISCH ---
ADMISSION DIAGNOSIS: Biliary dyskinesia. DISCHARGE DIAGNOSIS: Laparoscopic cholecystectomy for biliary dyskinesia. Date of surgery, 10/07/2018. HISTORY: Salina Herrmann is with abdominal pain. After preoperative evaluation and discussion of possible risks and possible complications, she wished to proceed with surgical procedure. HOSPITAL COURSE: Salina had her surgery on 10/07/2018. She had no operative complications. On postoperative day #1, her blood pressure was a little bit low compared to what she had prior. It was running 89 to 122/35 to 56. She states she was dizzy, but reports always feeling a little bit dizzy. She had walked back and forth to the bathroom, but not in the barney. Pain was controlled with Tylenol. She did have some nausea, but by later morning felt good enough to be discharged to home. PHYSICAL EXAMINATION: GENERAL: Salina is a 67-year-old female. VITAL SIGNS: Height is 5 feet 2 inches. Weight is 135 pounds. TPR 98.6, 67, 14, and blood pressure 122/56. HEENT: Negative. NECK: Supple. HEART: Regular rate and rhythm. LUNGS: Clear. ABDOMEN: Dressings dry and intact. Abdominal binder is on. EXTREMITIES: Without peripheral edema. DISPOSITION: Discharged to home. CONDITION: Stable and improving. FOLLOWUP APPOINTMENT: On 10/15/2018 at 8 am. HOME MEDICATIONS: Sims 5/325 mg one tablet every 6 hours p.r.n. pain, #30; and Zofran ODT 4 mg q.6 hours p.r.n. nausea. She can resume Tylenol, but not to exceed the recommended daily dose. Continue ProAir inhaler 2 puffs q.4 hours p.r.n. shortness of breath, Ventolin inhaler 2 puffs as directed p.r.n. shortness breath, aspirin 81 mg daily, calcium carbonate one capsule daily, epinephrine 0.3 mL as directed p.r.n. allergies, Flonase 2 sprays nasally in each nostril daily, Prevacid 30 mg oral daily, Synthroid 88 mcg oral daily, magnesium oxide 400 mg oral daily, multivitamin one tablet oral daily, omeprazole 20 mg oral daily, potassium chloride 20 mEq oral daily, Klonopin 0.5 mg oral twice daily p.r.n. dizziness, and hydrochlorothiazide 25 mg oral daily. DISCHARGE DIET: Usual diet as tolerated. Drink 8 to 10 glasses of water a day. ACTIVITY: No lifting greater than 10 pounds for 2 weeks. Other activity: Walk at least 6 times daily, distance and time as tolerated. Driving: Do not drive for 1 week or while on pain medication. Shower/bathing: May shower. DISCHARGE INSTRUCTIONS: Notify provider if any fever, increased pain, nausea, or vomiting. Keep site clean and dry. Wear abdominal binder for 2 weeks and then as tolerated. Use incentive spirometer 10 times every hour while awake.
--- NOTE | 2018-10-13 13:08 | OR ---
DATE OF PROCEDURE: 10/07/2018 PREOPERATIVE DIAGNOSIS: Biliary dyskinesia. POSTOPERATIVE DIAGNOSIS: Biliary dyskinesia. OPERATIVE PROCEDURE: Laparoscopic cholecystectomy (49190). ANESTHESIA: General. 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 Initial endoscopy done showed relatively minimal findings, and a CCK-stimulated HIDA scan was obtained which showed a below-normal ejection fraction as well as reproduction of the patient's symptoms. The plan, therefore, was to proceed with a laparoscopic cholecystectomy. Potential risks of the procedure including bleeding, infection, possible persistence of symptoms postoperatively, injury to the underlying viscera such as common bile duct were all reviewed, and the patient wishes to proceed. DETAILS OF PROCEDURE: The patient was taken to the operating room and placed in a supine position. After general endotracheal anesthesia was induced, the abdomen was prepped and draped. A transverse epigastric incision was made and the peritoneal cavity entered under direct vision with an Optiview trocar and inflated to 15 mmHg pressure with CO2. The laparoscope was reinserted. No underlying trocar insertion site injuries were seen. Following this, bilateral subcostal transversus abdominis plane blocks were placed, and a 12 mm subumbilical trocar was placed along with a 5 mm right upper quadrant trocar. The gallbladder was noted to be intensely distended and somewhat edematous consistent with chronic cholecystitis. The gallbladder was retracted anteriorly and laterally, and dissection began around the gallbladder neck with Harmonic scalpel and continued around the gallbladder neck and cystic duct junction. Once that area was well delineated as well as the adjacent cystic artery, both structures were clipped 3 times proximally, once distally, and divided. The gallbladder was then dissected off the gallbladder bed using the Harmonic scalpel and delivered through the epigastric trocar site. She was noted to have no true stones, but did have some significant areas of sludge with a diameter of around 1 to 2 mm maximally, likely causing some intermittent obstruction of the cystic duct. The area of dissection was inspected, drain was felt not to be necessary. The trocars were sequentially removed. The fascia at the midline sites was closed with 0 Vicryl stitch and the skin with 4-0 Vicryl skin stitch. Dressing was applied. The patient was taken to the recovery room in satisfactory condition. Mario Garcia MD /[id number]
== END 2018-10-08 13:30 | disposition home or self-care (01) ==
LOC: JP.SDS 08:18 → JP.MS 11:50 → JP.SDS 12:40 → JP.MS 12:40 → JP.SDS 10-08 13:49
PROVIDERS: ATTEND Surgery
DX: K81.1 Chronic cholecystitis (principal); K82.8 Other specified diseases of gallbladder; I10 Essential (primary) hypertension; E03.9 Hypothyroidism, unspecified; Z79.899 Other long term (current) drug therapy
CPT/HCPCS: 36415; 47562; 80053; 82247; 83735; 83880; 84075; 84100; 85025; 94640; A9270; C9113; C9399; J0171; J0330; J0694; J1100; J1170; J2405; J2704; J2710; J2795; J3010; J3480; J3490; J7042; J7050; J7120; J7620-GY

== ENCOUNTER 2018-10-09 10:46 | Emergency (ER) | payer MEDICARE, BC ==
[2018-10-09 11:04] VITALS: BP 150/80
--- NOTE | 2018-10-09 12:28 | EDM.PDOC ---
<Kenya Haque - Last Filed: 10/09/18 12:37> ED HPI GENERAL MEDICAL PROBLEM - General Chief Complaint: General Stated Complaint: SHAKY, FAINT FEELING, POST GALBLADER SURGERY Time Seen by Provider: 10/09/18 11:30 Source of Information: Reports: Patient History Limitations: Reports: No Limitations - History of Present Illness INITIAL COMMENTS - FREE TEXT/NARRATIVE: Salina Herrmann is a 67 year old female who presents to the E.D. with concerns of chronic dizziness and tinnitus, for two years. She has seen an ENT specialist and a Neurologist. She has trialed Verapamil, Topamax, Propranolol and Imitrex, without success. She was given Klonopin to trial, but she states she has not been taking it consistently. She has been diagnosed with silent migraine, vestibular migraines, and BPPV over the 2 years. She notes her vision starts to go during the dizzy spells, but denies room spinning sensation. She has been through PT for BPPV, with limited success. Two days ago she started to notice an increase in dizziness after her cholecystectomy. During the dizzy spells, she also loses her balance. She denied any loss of consciousness, fever , or chills. She states they aren't correlated with any certain activity or time of day. They occur daily. She also states since her surgery she has had urinary frequency. She denied dysuria. She denies chest pain, abdominal pain, changes in bowel or night sweats. Further symptoms are denied at this time. - Related Data Allergies Allergy/AdvReac Type Severity Reaction Status Date / Time bee venom protein (honey bee) Allergy Cannot Verified 10/09/18 11:03 Remember Home Meds: Home Meds Aspirin 81 mg PO DAILY 05/30/13 [History] hydroCHLOROthiazide [Hydrochlorothiazide] 25 mg PO DAILY 05/30/13 [History] Lansoprazole [Prevacid] 30 mg PO DAILY 11/06/13 [History] Albuterol Sulfate [Proair Hfa] 2 puff INH Q4HR PRN 11/01/16 [History] EPINEPHrine [Epipen 2-Jed] 0.3 ml IM ASDIRECTED PRN 11/01/16 [History] Multivitamin with Minerals [Multiple Vitamin] 1 tab PO DAILY 03/08/17 [History] Magnesium Oxide [Magnesium] 400 mg PO DAILY 07/09/17 [History] Fluticasone Propionate [Flonase] 2 spray JOSEP DAILY 02/28/18 [History] Levothyroxine [Synthroid] 88 mcg PO DAILY 02/28/18 [History] Potassium Chloride 20 meq PO DAILY 09/09/18 [History] clonazePAM [Klonopin] 0.5 mg PO BID PRN 09/09/18 [History] Calcium Carbonate/Vitamin D3 [Calcium 500 + Vit D Caplet] 1 cap PO DAILY [History] Omeprazole 20 mg PO DAILY 10/03/18 [History] Acetaminophen/HYDROcodone [[place] 325-5 MG] 1 tab PO Q6H PRN #30 tablet 10/08/18 [Rx] Ondansetron [Zofran ODT] 4 mg PO Q6H PRN #30 tab.dis 10/08/18 [Rx] Past Medical History HEENT History: Reports: Impaired Vision, Other (See Below) Other HEENT History: wears reading glasses, "ear problem-affecting balance and has noise in my ears" Cardiovascular History: Reports: Hypertension Other Cardiovascular History: History of PVC's Respiratory History: Reports: Bronchitis, Recurrent Gastrointestinal History: Reports: Diverticulosis, GERD, Hiatal Hernia Other Gastrointestinal History: Barretts syndrome 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 left arm. patella Neurological History: Reports: Concussion, Migraines, Vertigo Endocrine/Metabolic History: Reports: Hypothyroidism, Other (See Below) Other Endocrine/Metabolic History: nodule on thyroid being removed 07/16/17 Oncologic (Cancer) History: Reports: Thyroid - Infectious Disease History Infectious Disease History: Reports: Chicken Pox, Measles, Mumps - Past Surgical History Head Surgeries/Procedures: Reports: None HEENT Surgical History: Reports: None Cardiovascular Surgical History: Reports: None Respiratory Surgical History: Reports: None GI Surgical History: Reports: Appendectomy, Cholecystectomy, Colonoscopy, EGD, Carmen Fundoplication Endocrine Surgical History: Reports: Thyroidectomy Neurological Surgical History: Reports: Scoliosis Musculoskeletal Surgical History: Reports: Hip Replacement Oncologic Surgical History: Reports: None Dermatological Surgical History: Reports: None Social & Family History - Family History Family Medical History: Noncontributory - Tobacco Use Smoking Status *Q: Current Every Day Smoker Years of Tobacco use: 50 Packs/Tins Daily: 0.2 - Caffeine Use Caffeine Use: Reports: Coffee Other Caffeine Use: 8 cups per day - Recreational Drug Use Recreational Drug Use: No ED ROS GENERAL - Review of Systems Review Of Systems: See Below Constitutional: Reports: No Symptoms Respiratory: Reports: Cough Cardiovascular: Reports: No Symptoms Endocrine: Reports: No Symptoms GI/Abdominal: Reports: No Symptoms Skin: Reports: Other (facial flushing) Neurological: Reports: Other (Mild memory loss during dizzy spells) ED EXAM, GENERAL - Physical Exam Exam: See Below Exam Limited By: No Limitations General Appearance: Alert, WD/WN, No Apparent Distress Ears: Normal External Exam, Normal Canal, Hearing Grossly Normal, Normal TMs Nose: Normal Inspection Throat/Mouth: Normal Inspection, Normal Lips, Normal Teeth, Normal Gums, Normal Oropharynx Head: Atraumatic, Normocephalic Neck: Normal Inspection, Supple, Non-Tender, Full Range of Motion Respiratory/Chest: No Respiratory Distress, Lungs Clear, Normal Breath Sounds, No Accessory Muscle Use. No: Crackles, Rales, Rhonchi, Wheezing Cardiovascular: Regular Rate, Rhythm, No Edema Peripheral Pulses: 1+: Posterior Tibial (L), Posterior Tibial (R) GI/Abdominal: Normal Bowel Sounds, Soft, Non-Tender Extremities: Normal Inspection, Non-Tender, No Pedal Edema Neurological: Alert, Oriented, CN II-XII Intact, Normal Cognition, No Motor/ Sensory Deficits Psychiatric: Anxious Skin Exam: Warm, Intact, Normal Color, No Rash Course - Vital Signs Last Recorded V/S: Last Vital Signs Temp 96.2 F 10/09/18 11:07 Pulse 78 10/09/18 11:07 Resp 16 10/09/18 11:07 BP 150/80 H 10/09/18 11:07 Pulse Ox 96 10/09/18 11:07 - Orders/Labs/Meds Orders: Active Orders 24 hr Category Date Time Status CULTURE URINE [RM] Urgent Lab 10/09/18 12:19 Received Labs: Laboratory Tests 10/09/18 Range/Units 11:51 Urine Color Yellow Urine Appearance Clear Urine pH 8.0 (4.5-8.0) Ur Specific [place] 1.005 L (1.008-1.030) Urine Protein Negative (NEGATIVE) mg/dL Urine Glucose (UA) Normal (NEGATIVE) mg/dL Urine Ketones Negative (NEGATIVE) mg/dL Urine Occult Blood Negative (NEGATIVE) Urine Nitrite Negative (NEGATIVE) Urine Bilirubin Negative (NEGATIVE) Urine Urobilinogen Normal (NORMAL) mg/dL Ur Leukocyte Esterase Moderate (NEGATIVE) Urine RBC Not seen (0-5) Urine WBC 5-10 H (0-5) Ur Epithelial Cells Few Amorphous Sediment Not seen Urine Bacteria Not seen Urine Mucus Not seen Departure - Departure Disposition: Home, Self-Care 01 Condition: Fair Clinical Impression: Vestibular migraine - Discharge Information *PRESCRIPTION DRUG MONITORING PROGRAM REVIEWED*: No *COPY OF PRESCRIPTION DRUG MONITORING REPORT IN PATIENT SHIRLENE: No Referrals: Srinivas Peterson MD [Primary Care Provider] - Forms: ED Department Discharge Additional Instructions: Advised to take the Klonopin on a regular, scheduled basis, for at least 2 weeks. Take 0.5 MG, BID. Encouraged to follow up with primary care provider, if the Klonopin does not relieve symptoms as ask about a 4-6 week trial of Effexor (SNRI). Follow up with the ENT in January. - My Orders Last 24 Hours: My Active Orders 10/09/18 12:19 CULTURE URINE [RM] Urgent - Assessment/Plan Last 24 Hours: My Active Orders 10/09/18 12:19 CULTURE URINE [RM] Urgent <TrangrJason - Last Filed: 10/09/18 12:41> ED EXAM, GENERAL - Physical Exam Free Text/Narrative:: Agree with below Departure - Departure Time of Disposition: 12:41 - Assessment/Plan Plan: Assessment Acuity = chronic Site and laterality = dizziness suspected vestibular migraine Etiology = unknown etiology Manifestations = gait instability Location of injury = Home Lab values = urinalysis reveals 5-10 wbc's consists of pyuria cultures pending Plan Did review records from ENT visit as well as prior MRI CT scan and blood work current working diagnosis is vestibular migraine she had been described Klonopin 0.5 mg by mouth twice a day as a choice however she took the medication one time did not get relief and therefore does not use the medication. I did recommend that she take the medication as prescribed by ENT which could be on a daily basis give a good 2 week trial before deciding whether it works or not. Another medication to possibly consider would be an SNRI she does have follow-up appointment with neurology in January This note was dictated using wireWA[employer] voice recognition software please call with any questions on syntax or grammar.
== END 2018-10-09 12:45 | disposition home or self-care (01) ==
LOC: JP.ED 10:46
DX: G43.809 Other migraine, not intractable, without status migrainosus (principal); F17.210 Nicotine dependence, cigarettes, uncomplicated; I10 Essential (primary) hypertension; K21.9 Gastro-esophageal reflux disease without esophagitis; E03.9 Hypothyroidism, unspecified; Z79.82 Long term (current) use of aspirin; Z79.899 Other long term (current) drug therapy; Z91.030 Bee allergy status
CPT/HCPCS: 81001; 87086; 99283

== ENCOUNTER 2019-03-01 15:07 | Emergency (ER) | payer MEDICARE, BC ==
[2019-03-01 15:12] VITALS: BP 146/71; PULSE 79
--- NOTE | 2019-03-01 16:09 | EDM.PDOC ---
ED HPI GENERAL MEDICAL PROBLEM - General Chief Complaint: Chest Pain Stated Complaint: MEDICAL [place] Time Seen by Provider: 03/01/19 15:15 Source of Information: Reports: Patient, EMS History Limitations: Reports: No Limitations - History of Present Illness INITIAL COMMENTS - FREE TEXT/NARRATIVE: 68-year-old female who is brought in by ambulance after struggling with intermittent substernal chest spasms lasting 30-60 seconds but recurring over the course of several hours. She started to worry that they may not be related to her GI system as she has had a extended history of reflux including a Carmen fundoplication. She has no cardiac history. She had no radiation of pain to the jaw or shoulders, no shortness of breath or radiation to the back. EKG done by EMS was negative, she was given aspirin in route. Onset: Sudden (Started fairly suddenly 4-1/2-5 hours ago) Location: Reports: Chest Improves with: Reports: None Associated Symptoms: Reports: No Other Symptoms - Related Data Allergies Allergy/AdvReac Type Severity Reaction Status Date / Time bee venom protein (honey bee) Allergy Cannot Verified 03/01/19 15:30 Remember Home Meds: Home Meds hydroCHLOROthiazide [Hydrochlorothiazide] 25 mg PO DAILY 05/30/13 [History] Lansoprazole [Prevacid] 30 mg PO DAILY 11/06/13 [History] Albuterol Sulfate [Proair Hfa] 2 puff INH Q4HR PRN 11/01/16 [History] EPINEPHrine [Epipen 2-Jed] 0.3 ml IM ASDIRECTED PRN 11/01/16 [History] Multivitamin with Minerals [Multiple Vitamin] 1 tab PO DAILY 03/08/17 [History] Magnesium Oxide [Magnesium] 400 mg PO DAILY 07/09/17 [History] Fluticasone Propionate [Flonase] 2 spray JOSEP DAILY 02/28/18 [History] Levothyroxine [Synthroid] 88 mcg PO DAILY 02/28/18 [History] Potassium Chloride 20 meq PO DAILY 09/09/18 [History] clonazePAM [Klonopin] 0.5 mg PO DAILY 09/09/18 [History] Calcium Carbonate/Vitamin D3 [Calcium 500 + Vit D Caplet] 1 cap PO DAILY [History] Incruse 1 puff INH DAILY 03/01/19 [History] Past Medical History HEENT History: Reports: Impaired Vision, Other (See Below) Other HEENT History: wears reading glasses, "ear problem-affecting balance and has noise in my ears" Cardiovascular History: Reports: Hypertension Other Cardiovascular History: History of PVC's Respiratory History: Reports: Bronchitis, Recurrent Gastrointestinal History: Reports: Diverticulosis, GERD, Hiatal Hernia Other Gastrointestinal History: Barretts syndrome 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 left arm. patella Neurological History: Reports: Concussion, Migraines, Vertigo Endocrine/Metabolic History: Reports: Hypothyroidism, Other (See Below) Other Endocrine/Metabolic History: nodule on thyroid being removed 07/16/17 Oncologic (Cancer) History: Reports: Thyroid - Infectious Disease History Infectious Disease History: Reports: Chicken Pox, Measles, Mumps - Past Surgical History HEENT Surgical History: Reports: None GI Surgical History: Reports: Appendectomy, Cholecystectomy, Colonoscopy, EGD, Carmen Fundoplication Endocrine Surgical History: Reports: Thyroidectomy Neurological Surgical History: Reports: Scoliosis Musculoskeletal Surgical History: Reports: Hip Replacement Social & Family History - Family History Family Medical History: Noncontributory - Tobacco Use Smoking Status *Q: Heavy Tobacco Smoker Years of Tobacco use: 50 Packs/Tins Daily: 1 - Caffeine Use Caffeine Use: Reports: Coffee Other Caffeine Use: 8 cups per day - Recreational Drug Use Recreational Drug Use: No ED ROS GENERAL - Review of Systems Review Of Systems: See Below Constitutional: Denies: Fever, Chills HEENT: Reports: No Symptoms Respiratory: Denies: Shortness of Breath Cardiovascular: Reports: Chest Pain GI/Abdominal: Reports: No Symptoms, Abdominal Pain (Some very upper epigastric abdominal discomfort intermittently, no significant pain) Musculoskeletal: Reports: No Symptoms Skin: Reports: No Symptoms Neurological: Reports: No Symptoms ED EXAM, GENERAL - Physical Exam Exam: See Below Exam Limited By: No Limitations General Appearance: Alert, No Apparent Distress Eye Exam: Bilateral Eye: Normal Inspection Head: Atraumatic Respiratory/Chest: No Respiratory Distress, Lungs Clear Cardiovascular: Regular Rate, Rhythm Course - Vital Signs Last Recorded V/S: Last Vital Signs Temp 98.2 F 03/01/19 15:28 Pulse 79 03/01/19 15:28 Resp 15 03/01/19 15:28 BP 146/71 H 03/01/19 15:28 Pulse Ox 93 L 03/01/19 15:28 - Orders/Labs/Meds Labs: Laboratory Tests 03/01/19 Range/Units 15:30 Troponin I < 0.017 (0.000-0.056) ng/mL - Re-Assessments/Exams Free Text/Narrative Re-Assessment/Exam: 03/01/19 16:14 EKG on arrival was negative, no change from EMS. Explained to the patient that the symptoms are more typical of gastrointestinal and cardiac, but we couldn't rule out damage with a troponin. This was done and was 0. She had no further symptoms while in the emergency room and was discharged. Departure - Departure Time of Disposition: 16:34 Disposition: Home, Self-Care 01 Condition: Good Clinical Impression: Non-cardiac chest pain - Discharge Information Instructions: Nonspecific Chest Pain Referrals: PCP,None [Primary Care Provider] - Forms: ED Department Discharge Care Plan Goals: Continue your current medications and diet. Increase activity as tolerated and return if symptoms are persistent over the next few days, return immediately if pain recurs and is persistent for more than 5-10 minutes.
== END 2019-03-01 16:34 | disposition home or self-care (01) ==
LOC: JP.ED 15:07
DX: R07.89 Other chest pain (principal); I10 Essential (primary) hypertension; E03.9 Hypothyroidism, unspecified; F17.210 Nicotine dependence, cigarettes, uncomplicated; Z91.030 Bee allergy status; Z79.899 Other long term (current) drug therapy
CPT/HCPCS: 36415; 84484; 93005; 93010; 99284; 99285-25

== ENCOUNTER 2019-05-25 12:49 | Emergency (ER) | payer MEDICARE, BC ==
[2019-05-25] MEDS ORDERED: Sodium Chloride 0.9% 10 ML Syringe FLUSH PRN ×2 (12:58→13:43)
[2019-05-25] MEDS ORDERED: HYDROmorphone 0.5 MG/0.5 ML Syringe IVPUSH ONE (12:59)
[2019-05-25] MEDS ORDERED: Sodium Chloride 0.9% 1,000 ML IV ONE (12:59)
[2019-05-25] MEDS ORDERED: LORazepam 2 MG/ML SDV IVPUSH ONE (13:00)
[2019-05-25 13:10] VITALS: BP 159/76; PULSE 85
[2019-05-25] MEDS ORDERED: Iopamidol 612 MG/ML 100 ML Bottle IV PRN (13:43)
--- NOTE | 2019-05-25 14:19 | EDM.PDOC ---
ED HPI GENERAL MEDICAL PROBLEM - General Chief Complaint: Abdominal Pain Stated Complaint: SEVERE ABD PAIN Time Seen by Provider: 05/25/19 12:51 Source of Information: Reports: Patient History Limitations: Reports: No Limitations - History of Present Illness INITIAL COMMENTS - FREE TEXT/NARRATIVE: Salina is a 68 year old female, presents to the ED today with her sister with c/o severe abdominal pain that started at 1030 this morning, nauseated, no vomiting, no diarrhea, had a normal BM yesterday, denies any blood in her stool. Patient denies any fever, pain similar to her gallbladder attacks, sharp , comes in waves. Had her gallbladder removed by Dr. Garcia earlier this year. Denies any urinary symptoms. Patient has not taken anything for her pain, sitting makes it better, lying flat or standing makes it worse. Onset: Today, Sudden Left Upper Abdomen Pain Score (Numeric/FACES): 4 - Related Data Allergies Allergy/AdvReac Type Severity Reaction Status Date / Time bee venom protein (honey bee) Allergy Cannot Verified 05/25/19 13:18 Remember Home Meds: Home Meds hydroCHLOROthiazide [Hydrochlorothiazide] 25 mg PO DAILY 05/30/13 [History] Lansoprazole [Prevacid] 30 mg PO DAILY 11/06/13 [History] Albuterol Sulfate [Proair Hfa] 2 puff INH Q4HR PRN 11/01/16 [History] EPINEPHrine [Epipen 2-Jed] 0.3 ml IM ASDIRECTED PRN 11/01/16 [History] Multivitamin with Minerals [Multiple Vitamin] 1 tab PO DAILY 03/08/17 [History] Magnesium Oxide [Magnesium] 400 mg PO DAILY 07/09/17 [History] Fluticasone Propionate [Flonase] 2 spray JOSEP DAILY 02/28/18 [History] Levothyroxine [Synthroid] 100 mcg PO DAILY 02/28/18 [History] Potassium Chloride 20 meq PO DAILY 09/09/18 [History] clonazePAM [Klonopin] 0.5 mg PO DAILY 09/09/18 [History] Calcium Carbonate/Vitamin D3 [Calcium 500 + Vit D Caplet] 1 cap PO DAILY [History] Incruse 1 puff INH DAILY 03/01/19 [History] Past Medical History HEENT History: Reports: Impaired Vision, Other (See Below) Other HEENT History: wears reading glasses, "ear problem-affecting balance and has noise in my ears" Cardiovascular History: Reports: Hypertension Other Cardiovascular History: History of PVC's Respiratory History: Reports: Bronchitis, Recurrent Gastrointestinal History: Reports: Diverticulosis, GERD, Hiatal Hernia Other Gastrointestinal History: Barretts syndrome [employer] 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 left arm. patella Neurological History: Reports: Concussion, Migraines, Vertigo Endocrine/Metabolic History: Reports: Hypothyroidism, Other (See Below) Other Endocrine/Metabolic History: nodule on thyroid being removed 07/16/17 Oncologic (Cancer) History: Reports: Thyroid - Infectious Disease History Infectious Disease History: Reports: Chicken Pox, Measles, Mumps - Past Surgical History Head Surgeries/Procedures: Reports: None HEENT Surgical History: Reports: None GI Surgical History: Reports: Appendectomy, Cholecystectomy, Colonoscopy, EGD, Lysis of Adhesions, Carmen Fundoplication Endocrine Surgical History: Reports: Thyroidectomy Neurological Surgical History: Reports: Scoliosis Musculoskeletal Surgical History: Reports: Hip Replacement Social & Family History - Family History Family Medical History: Noncontributory - Tobacco Use Smoking Status *Q: Current Every Day Smoker Years of Tobacco use: 50 Packs/Tins Daily: 1 - Caffeine Use Caffeine Use: Reports: Coffee Other Caffeine Use: 8 cups per day - Recreational Drug Use Recreational Drug Use: No ED ROS GENERAL - Review of Systems Review Of Systems: ROS reveals no pertinent complaints other than HPI. ED EXAM, GI/ABD - Physical Exam Exam: See Below Exam Limited By: No Limitations General Appearance: Mild Distress Eyes: Bilateral: EOMI Ears: Normal External Exam Nose: Normal Inspection Throat/Mouth: Normal Inspection, Normal Oropharynx Head: Atraumatic, Normocephalic Neck: Supple, Non-Tender Respiratory/Chest: No Respiratory Distress, Lungs Clear, Normal Breath Sounds Cardiovascular: Normal Peripheral Pulses, Regular Rate, Rhythm, Other ( Hypertensive) GI/Abdominal Exam: Tender (generalized with mid abdomen) Extremities: Normal Inspection Neurological: Alert, Oriented, CN II-XII Intact Psychiatric: Anxious Skin Exam: Diaphoretic Lymphatic: No Adenopathy Course - Vital Signs Last Recorded V/S: Last Vital Signs Temp 37.2 C 05/25/19 13:25 Pulse 85 05/25/19 13:25 Resp 24 H 05/25/19 13:25 BP 159/76 H 05/25/19 13:25 Pulse Ox 95 05/25/19 13:25 Salina is a 68 year old female, hx of cholecystectomy earlier this year, presents with sudden onset of severe, cramping abdominal pain since 1030 this morning. Please refer to HPI and focused exam. Patient arrives here hemodynamically stable, afebrile, hypertensive, likely secondary to pain. Patient's presentation is concerning for a bowel obstruction given location of pain, this could also be pancreatitis, no recent ETOH use, ? common bile duct stone as well. PIV established, patient given IV fluids, Dilaudid, Ativan for pain/cramping. Blood work obtained as well as CT scan of abdomen/pelvis. Blood returns with elevated white count of 12.4, left shift, Gap of 14.3, low lipase, mild hypokalemia at 3.3, otherwise within normal limits with normal lactic acid. UA negative. CT with no findings that would account for patient's symptoms today. Patient's pain is improved but now with focal tenderness to RUQ and mid epigastric region , this may be CBD related, however, blood work (LFT's lipase and bilirubin are all reassuring). Will proceed with RUQ US which was also unremarkable. Patient' s pain has improved, tolerating oral liquids fine, not certain what her pain was ultimately from but given her extensive work up today and reassuring labs I feel she is stable to be discharged home. I will send her home with Zofran for nausea and Percocet for pain as needed. Narcotic safety and side effects discussed. Reasons to return to the ED discussed, I did recommend that if her symptoms return or persist that she should follow up with Dr. Garcia. Patient also notified of Nodule on CT as well. Patient is agreeable to plan of care and discharged in stable condition. - Orders/Labs/Meds Orders: Active Orders 24 hr Category Date Time Status Peripheral IV Care [RC] . DIRECTED Care 05/25/19 12:58 Active Abdomen Ltd [US] Stat Exams 05/25/19 14:50 Taken Iopamidol [Isovue-300 (61%)] Med 05/25/19 13:43 Active 90 ml IV . DIRECTED PRN Sodium Chloride 0.9% [Saline Flush] Med 05/25/19 12:58 Active 10 ml FLUSH ASDIRECTED PRN Peripheral IV Insertion Adult [OM.PC] Routine Oth 05/25/19 12:58 Ordered Medication Orders Iopamidol (Isovue-300 (61%)) 90 ml IV . DIRECTED PRN PRN Reason: RADIOLOGY EXAM Stop: 05/26/19 13:44 Last Admin: 05/25/19 13:54 Dose: 90 ml Sodium Chloride (Saline Flush) 10 ml FLUSH ASDIRECTED PRN PRN Reason: Keep Vein Open Labs: Laboratory Tests 05/25/19 05/25/19 05/25/19 Range/Units 13:08 13:08 13:08 WBC 12.4 H (4.5-11.0) K/uL RBC 5.33 (3.30-5.50) M/uL Hgb 15.8 H D (12.0-15.0) g/dL Hct 47.5 (36.0-48.0) % MCV 89 (80-98) fL MCH 30 (27-31) pg MCHC 33 (32-36) % Plt Count 544 H (150-400) K/uL Neut % (Auto) 76 H (36-66) % Lymph % (Auto) 16 L (24-44) % [place] % (Auto) 7 H (2-6) % Eos % (Auto) 1 L (2-4) % Baso % (Auto) 0 (0-1) % Sodium 141 (140-148) mmol/L Potassium 3.3 L (3.6-5.2) mmol/L Chloride 104 (100-108) mmol/L Carbon Dioxide 26 (21-32) mmol/L Anion Gap 14.3 H (5.0-14.0) mmol/L BUN 16 D (7-18) mg/dL Creatinine 0.8 (0.6-1.0) mg/dL Est Cr Clr Drug Dosing 51.75 mL/min Estimated GFR (MDRD) > 60 (>60) Glucose 97 (74-106) mg/dL Lactic Acid (0.4-2.0) mmol/L Calcium 8.9 (8.5-10.1) mg/dL Total Bilirubin 0.9 (0.2-1.0) mg/dL AST 14 L (15-37) U/L ALT 23 (12-78) U/L Alkaline Phosphatase 76 (46-116) U/L C-Reactive Protein 0.05 (0.0-0.3) mg/dL Total Protein 7.3 (6.4-8.2) g/dL Albumin 4.0 (3.4-5.0) g/dL Globulin 3.3 (2.3-3.5) g/dL Albumin/Globulin Ratio 1.2 (1.2-2.2) Lipase 58 L (73-393) U/L Urine Color (YELLOW) Urine Appearance (CLEAR) Urine pH (5.0-8.0) Ur Specific [place] (1.008-1.030) Urine Protein (NEGATIVE) mg/dL Urine Glucose (UA) (NEGATIVE) mg/dL Urine Ketones (NEGATIVE) mg/dL Urine Occult Blood (NEGATIVE) Urine Nitrite (NEGATIVE) Urine Bilirubin (NEGATIVE) Urine Urobilinogen (0.2-1.0) EU/dL Ur Leukocyte Esterase (NEGATIVE) Urine RBC (0-5) Urine WBC (0-5) Ur Epithelial Cells Amorphous Sediment Urine Bacteria Urine Mucus 05/25/19 05/25/19 Range/Units 13:08 14:08 WBC (4.5-11.0) K/uL RBC (3.30-5.50) M/uL Hgb (12.0-15.0) g/dL Hct (36.0-48.0) % MCV (80-98) fL MCH (27-31) pg MCHC (32-36) % Plt Count (150-400) K/uL Neut % (Auto) (36-66) % Lymph % (Auto) (24-44) % [place] % (Auto) (2-6) % Eos % (Auto) (2-4) % Baso % (Auto) (0-1) % Sodium (140-148) mmol/L Potassium (3.6-5.2) mmol/L Chloride (100-108) mmol/L Carbon Dioxide (21-32) mmol/L Anion Gap (5.0-14.0) mmol/L BUN (7-18) mg/dL Creatinine (0.6-1.0) mg/dL Est Cr Clr Drug Dosing mL/min Estimated GFR (MDRD) (>60) Glucose (74-106) mg/dL Lactic Acid 1.8 (0.4-2.0) mmol/L Calcium (8.5-10.1) mg/dL Total Bilirubin (0.2-1.0) mg/dL AST (15-37) U/L ALT (12-78) U/L Alkaline Phosphatase (46-116) U/L C-Reactive Protein (0.0-0.3) mg/dL Total Protein (6.4-8.2) g/dL Albumin (3.4-5.0) g/dL Globulin (2.3-3.5) g/dL Albumin/Globulin Ratio (1.2-2.2) Lipase (73-393) U/L Urine Color Yellow (YELLOW) Urine Appearance Clear (CLEAR) Urine pH 6.0 (5.0-8.0) Ur Specific [place] 1.020 (1.008-1.030) Urine Protein Negative (NEGATIVE) mg/dL Urine Glucose (UA) Negative (NEGATIVE) mg/dL Urine Ketones Negative (NEGATIVE) mg/dL Urine Occult Blood Trace-intact H (NEGATIVE) Urine Nitrite Negative (NEGATIVE) Urine Bilirubin Negative (NEGATIVE) Urine Urobilinogen 0.2 (0.2-1.0) EU/dL Ur Leukocyte Esterase Small H (NEGATIVE) Urine RBC 0-5 (0-5) Urine WBC 0-5 (0-5) Ur Epithelial Cells Rare Amorphous Sediment Not seen Urine Bacteria Not seen Urine Mucus Not seen Meds: Medications Generic Name Dose Route Start Last Admin Trade Name Dinoq PRN Reason Stop Dose Admin Iopamidol 90 ml 05/25/19 13:43 05/25/19 13:54 Isovue-300 (61%) IV 05/26/19 13:44 90 ml . DIRECTED PRN Administration RADIOLOGY EXAM Sodium Chloride 10 ml 05/25/19 12:58 Saline Flush FLUSH ASDIRECTED PRN Keep Vein Open Discontinued Medications Generic Name Dose Route Start Last Admin Trade Name Freq PRN Reason Stop Dose Admin Hydromorphone HCl 0.5 mg 05/25/19 12:59 05/25/19 13:14 Dilaudid IVPUSH 05/25/19 13:00 0.5 mg ONETIME ONE Administration Sodium Chloride 1,000 mls @ 999 mls/hr 05/25/19 12:59 05/25/19 13:16 Normal Saline IV 05/25/19 13:59 999 mls/hr .BOLUS ONE Administration Sodium Chloride 70 mls @ 3 mls/sec 05/25/19 13:45 05/25/19 13:54 Normal Saline IV 05/25/19 13:46 3 mls/sec ASDIRECTED DARIUSZ Administration Lorazepam 0.5 mg 05/25/19 13:00 05/25/19 13:17 Ativan IVPUSH 05/25/19 13:01 0.5 mg ONETIME ONE Administration Sodium Chloride 10 ml 05/25/19 13:43 05/25/19 13:54 Saline Flush FLUSH 05/25/19 13:44 10 ml ONETIME PRN Administration per radiology protocol Departure - Departure Time of Disposition: 17:00 Disposition: Home, Self-Care 01 Condition: Good Clinical Impression: Abdominal pain Qualifiers: Abdominal location: right upper quadrant Qualified Code(s): R10.11 - Right upper quadrant pain - Discharge Information Instructions: Abdominal Pain, Adult, [id number] Referrals: Srinivas Peterson MD [Primary Care Provider] - Forms: ED Department Discharge Additional Instructions: Keep well hydrated. Tylenol for pain. If ineffective I have given you Percocet, this is a narcotic , do not drive if you take it. Zofran as needed for nausea. Follow up with Dr. Garcia if your symptoms persist, return here with any worsening symptoms/pain. Of note, there was a 7 mm nodule in your Right Lower Lobe of your lung, these usually are not significant but you should have a repeat scan in the next 6-12 months to ensure this has not changed, please discuss with your primary care provider. - My Orders Last 24 Hours: My Active Orders 05/25/19 12:58 Peripheral IV Care [RC] . DIRECTED Sodium Chloride 0.9% [Saline Flush] 10 ml FLUSH ASDIRECTED PRN Peripheral IV Insertion Adult [OM.PC] Routine 05/25/19 13:43 Iopamidol [Isovue-300 (61%)] 90 ml IV . DIRECTED PRN 05/25/19 14:50 Abdomen Ltd [US] Stat - Assessment/Plan Last 24 Hours: My Active Orders 05/25/19 12:58 Peripheral IV Care [RC] . DIRECTED Sodium Chloride 0.9% [Saline Flush] 10 ml FLUSH ASDIRECTED PRN Peripheral IV Insertion Adult [OM.PC] Routine 05/25/19 13:43 Iopamidol [Isovue-300 (61%)] 90 ml IV . DIRECTED PRN 05/25/19 14:50 Abdomen Ltd [US] Stat
--- NOTE | 2019-05-25 14:32 | CT ---
Abdomen Pelvis w Cont CLINICAL HISTORY: Mid abdominal pain COMPARISON: September 24, 2018. TECHNIQUE: Axial tomographic images are obtained from the dome of the diaphragm to the pubic symphysis without IV contrast enhancement. No oral contrast was used. Auto dosage reduction and iterative reconstruction techniques employed. FINDINGS: The lung bases show some curvilinear scarring in the left lung base similar to prior study. There is a 7 mm nodule in the right lower lobe. This is not seen on the prior study but it may have been above the upper most image plain. There are a few scattered bulla. The liver there is some mild intrahepatic biliary prominence. This is likely related to previous cholecystectomy. The spleen has a normal size and shape. There is a small splenule. The pancreas shows no mass or inflammatory change. There are surgical sutures in the region of the stomach. The adrenal glands are normal bilaterally. The kidneys show no mass, stones or hydronephrosis. Ureters have a normal contour. The aorta shows atheromatous plaque without aneurysm. There is no suspicious retroperitoneal adenopathy. There are a few scattered diverticula without evidence of diverticulitis. The appendix is not definitively identified. The there is no significant inflammatory change in the right lower quadrant. Right hip arthroplasty posterior some detail. Bladder has normal contour. IMPRESSION: 7 mm nodule in the right lower lobe is of uncertain chronology. Previous cholecystectomy Previous surgery in the region of the stomach
--- NOTE | 2019-05-25 16:33 | CRLUS ---
Indication: Right upper quadrant pain. History of cholecystectomy. Technique: Grayscale and color Doppler ultrasound of the right upper quadrant was performed. Comparison: None Findings: Visualized portions of the pancreas are within normal limits. The aorta is normal in caliber throughout its visualized course. The liver is normal in echogenicity. The liver is homogeneous. No intrahepatic biliary ductal dilatation is identified. Liver measures 14.3 centimeters in maximum dimension. No gallbladder is identified and consistent with patient`s post cholecystectomy state. Common bile duct measures 7.6 mm in size. The portal vein is patent. The right kidney measures 9.3 x 4.8 x 4.4 centimeters. The cortex measures 1.1 centimeter in size. No hydronephrosis is identified. Impression: Postsurgical changes of a cholecystectomy. Otherwise, normal right upper quadrant ultrasound. Dictated by Shelbie Medel MD @ May 25 2019 4:22PM Signed by Dr. Shelbie Medel @ May 25 2019 4:32PM
== END 2019-05-25 16:57 | disposition home or self-care (01) ==
LOC: JP.ED 12:49
DX: R10.11 Right upper quadrant pain (principal); R10.12 Left upper quadrant pain; I10 Essential (primary) hypertension; K21.9 Gastro-esophageal reflux disease without esophagitis; E03.9 Hypothyroidism, unspecified; F17.210 Nicotine dependence, cigarettes, uncomplicated; Z91.030 Bee allergy status; Z79.899 Other long term (current) drug therapy; Z79.890 Hormone replacement therapy
CPT/HCPCS: 36415; 74177; 76705; 80053; 81001; 83605; 83690; 85025; 86140; 96361; 96374; 96375; 99284; J1170; J2060; J7030; Q9967

== ENCOUNTER 2019-05-28 07:56 | Day surgery (SDC) | payer MEDICARE, BC ==
[2019-05-28] MEDS ORDERED: Dextrose 5%-Lactated Ringers 1,000 ML IV SCH (08:15)
[2019-05-28] MEDS ORDERED: Glycopyrrolate 0.2 MG/ML 2 ML SDV IVPUSH ONE (09:00)
[2019-05-28] MEDS ORDERED: fentaNYL 100 MCG/2 ML SDV ONE (10:02)
[2019-05-28] MEDS ORDERED: Midazolam 1 MG/ML 2 ML SDV ONE (10:02)
[2019-05-28] MEDS ORDERED: Propofol 200 MG/20 ML SDV ONE (10:03)
[2019-05-28] MEDS ORDERED: HYDROmorphone 1 MG/ML Syringe IVPUSH ONE (13:08)
[2019-05-28] MEDS ORDERED: Sodium Chloride 0.9% 10 ML Syringe FLUSH ONE (13:12)
[2019-05-28] MEDS ORDERED: Sodium Chloride 0.9% 100 ML IV SCH (13:15)
[2019-05-28] MEDS ORDERED: Iopamidol 612 MG/ML 100 ML Bottle IV SCH (13:15)
--- NOTE | 2019-05-28 13:57 | CRLCT ---
HISTORY: Abdominal pain. TECHNIQUE: CT abdomen and pelvis with IV contrast. COMPARISON: CT abdomen and pelvis 05/25/2019. Abdominal ultrasound 05/25/2019. FINDINGS: Abdomen: No liver lesions. Cholecystectomy. Unchanged intrahepatic bile duct dilation. No pancreatic. Main pancreatic duct is mildly dilated in the pancreatic head to 4-5 mm, unchanged. No focal pancreatic duct caliber change. No spleen lesions. No adrenal nodules. Kidneys enhance symmetrically. No renal mass. No hydronephrosis. Postoperative changes around the proximal stomach with multiple surgical clips. Suspect gastric fundoplication. No dilated bowel. Colonic diverticulosis. No free fluid. No free intraperitoneal gas. No lymphadenopathy. Moderate atherosclerosis. Abdominal aorta is normal caliber. Small fat containing supraumbilical midline ventral hernia. Pelvis: Portion of the pelvis is obscured by artifact from right hip arthroplasty hardware. No lymphadenopathy. Musculoskeletal: Right total hip arthroplasty. Degenerative changes of the spine. Osteopenia. Lower chest: Mild atelectasis or scarring in both lung bases. 6 mm noncalcified pulmonary nodule in the right lower lobe (series 2 image 3). IMPRESSION: 1. No acute abnormality in the chest, abdomen, or pelvis. 2. Postoperative changes are in the proximal stomach. 3. Mildly dilated main pancreatic duct, unchanged. 4. 6 mm pulmonary nodule in the right lower lobe. Recommend follow-up chest CT in 6-12 months. Please note that all CT scans at this facility use dose modulation, iterative reconstruction, and/or weight-based dosing when appropriate to reduce radiation dose to as low as reasonably achievable. Dictated by German Osman MD @ May 28 2019 1:46PM Signed by Dr. German Osman @ May 28 2019 1:55PM
[2019-05-28 14:15] VITALS: BP 120/60; PULSE 71
--- NOTE | 2019-06-12 11:35 | OR ---
DATE OF PROCEDURE: 05/28/2019 SURGEON: Mario Garcia MD PREOPERATIVE DIAGNOSIS: Upper abdominal pain. POSTOPERATIVE DIAGNOSES: 1. Upper abdominal pain. 2. Upper endoscopy showing: a. Extensive upward extension of the columnar mucosa with otherwise minimal gross inflammation, status post previous Carmen fundoplication (suspicious for Garcia's esophagus). b. Thickened, edematous gastric mucosa with enlarged rugal folds. c. Mild antral gastritis. OPERATIVE PROCEDURE: Esophagogastroduodenoscopy with: 1. Biopsies of antrum for CLOtest. 2. Biopsies of gastric body for histologic evaluation. 3. Biopsies of the distal esophagus and esophagogastric junction for histologic evaluation. ANESTHESIA: IV sedation. INDICATIONS FOR PROCEDURE: A 68-year-old presenting with some severe upper abdominal pain. She was seen 3 days ago with severe enough pain lasting several hours that she was brought to the emergency room by ambulance. This gradually did subside. Workup at that time will be outlined at the conclusion of the procedure. Potential risks of the procedure including bleeding and perforation were discussed, and the patient wishes to proceed. DETAILS OF PROCEDURE: The patient was taken to the operating room and placed in a left lateral decubitus position. IV sedation was administered, after which the upper GI endoscope was passed orally through the length of the esophagus and into the stomach with retroflexion view of the fundus, thereafter through the pyloric channel into the junction of the third and fourth portions of the duodenum. Findings included normal hypopharynx, larynx, upper esophageal sphincter, esophageal body. At the distal esophagus, there was a fairly extensive upward extension of the gastroesophageal junction mucosal line. This was more or less circumferential with some variation in height with height in the range of 3 to 4 cm above the upper gastric folds. There were also some scattered islands of columnar type mucosa. This, however, was not associated with a noticeable gross inflammation. The patient did have an intact Carmen effect. Within the stomach, there was a small amount of retained bile. It was notable that the patient had quite a bit of thickened, edematous gastric mucosa and large rugal folds in the fundus and body of the stomach. As one passed through the antrum, there was some mild antral gastritis in terms of patchy redness and edema, however, there were no ulcers or erosions, and the pyloric channel and visualized portions of the duodenum were unremarkable. At this point, biopsies were obtained from the antrum and sent for CLOtest for H. pylori. Multiple biopsies were obtained from the area of the gastric body to evaluate the edematous and somewhat enlarged appearing gastric folds, and finally multiple biopsies at various levels in the areas of the upward extension of the columnar mucosa in the distal esophagus were also obtained. Minimal bleeding at the biopsy sites was seen, and the procedure was then concluded. From a reflux standpoint, the patient appears to be fairly well controlled with the combination of Carmen fundoplication and the Prevacid. The pathology on the distal esophageal biopsies is obviously pending. With regard to the patient's acute abdominal pain, she feels that these episodes are quite similar to what she had when she was having biliary colic. The patient was found to have biliary colic last June, and on 10/01/2018, had a CCK stimulated HIDA scan, which showed a 21% ejection fraction, and the CCK injection caused fairly exact reproduction of her symptoms. The patient on 10/07/2018, underwent cholecystectomy, and pathology confirmed chronic cholecystitis. The patient then did well from the abdominal point for several months, now beginning to have recurrent episodes of pain associated with some frequent bowel movements. In the emergency room on 05/25/2019, the patient had pain for several hours and was noted to be mild to moderately tender in the right upper quadrant. Labs at that time showed a normal total bilirubin, AST, ALT, alkaline phosphatase, and a somewhat below normal lipase. CT scan was obtained which showed intrahepatic biliary duct dilation and [id number] pancreatic ductal dilatation. The patient was also noted to have a 6 mm lung nodule. At this point, we are obviously awaiting the pathology on the resected gastric specimen. The type of pain that she is having appears to be more severe and episodic, and we are perhaps dealing with a sphincter of Oddi dysfunction. For evaluation of that issue as well as general look at the case, we will have the Gastroenterology consult on this patient. In the meantime, the patient will be instructed to watch for any dietary triggers that might be causing these episodes, and we will put it in the computer and tag the patient that she should have a repeat CT scan of the chest in 6 months for followup of the lung nodule. The patient is presently scheduled to see Gastroenterology (Jhoana Montoya NP) in [place] on June 17. Mario Garcia MD /[id number]
== END 2019-05-28 14:17 | disposition home or self-care (01) ==
LOC: JP.SDS 07:56
PROVIDERS: ATTEND Surgery
DX: K29.50 Unspecified chronic gastritis without bleeding (principal); K31.89 Other diseases of stomach and duodenum; J44.9 Chronic obstructive pulmonary disease, unspecified; I10 Essential (primary) hypertension; F17.210 Nicotine dependence, cigarettes, uncomplicated; Z98.84 Bariatric surgery status
CPT/HCPCS: 74177; 87081; 88305; J1170; J2250; J2704; J3010; J3490; J7030; J7042; Q9967

== ENCOUNTER 2019-06-02 16:48 | Emergency (ER) | payer MEDICARE, BC ==
--- NOTE | 2019-06-02 17:40 | EDM.PDOC ---
<Nicole Hewitt - Last Filed: 06/02/19 17:55> ED HPI GENERAL MEDICAL PROBLEM - General Chief Complaint: General Stated Complaint: WEAK,LIGHT HEADED Time Seen by Provider: 06/02/19 17:32 Source of Information: Reports: Patient History Limitations: Reports: No Limitations - History of Present Illness INITIAL COMMENTS - FREE TEXT/NARRATIVE: pt arrived with a feeliong of dizziness and she is feeling very weak. Onset: Today Duration: Hour(s):, Other (pt states these kind of come in episodes. ) Location: Reports: Head, Generalized, Other Associated Symptoms: Reports: Loss of Appetite, Other (pt does not have a ppetite but she does make hwerself eat. ) - Related Data Allergies Allergy/AdvReac Type Severity Reaction Status Date / Time bee venom protein (honey bee) Allergy Syncope Verified 06/02/19 17:06 Home Meds: Home Meds hydroCHLOROthiazide [Hydrochlorothiazide] 25 mg PO DAILY 05/30/13 [History] Lansoprazole [Prevacid] 30 mg PO DAILY 11/06/13 [History] Albuterol Sulfate [Proair Hfa] 2 puff INH Q4HR PRN 11/01/16 [History] EPINEPHrine [Epipen 2-Jed] 0.3 ml IM ASDIRECTED PRN 11/01/16 [History] Multivitamin with Minerals [Multiple Vitamin] 1 tab PO DAILY 03/08/17 [History] Magnesium Oxide [Magnesium] 400 mg PO DAILY 07/09/17 [History] Fluticasone Propionate [Flonase] 2 spray JOSEP DAILY 02/28/18 [History] Levothyroxine [Synthroid] 100 mcg PO DAILY 02/28/18 [History] Potassium Chloride 20 meq PO DAILY 09/09/18 [History] Calcium Carbonate/Vitamin D3 [Calcium 500 + Vit D Caplet] 1 cap PO DAILY [History] Incruse 1 puff INH DAILY 03/01/19 [History] Triamcinolone Acetonide [Triamcinolone Acetonide Lotion] 2 applic TOP BID [History] Bismuth Subsalicylate [Pepto Bismol] 30 ml PO DAILY PRN 05/28/19 [History] Meclizine [Antivert] 25 mg PO DAILY PRN 05/28/19 [History] Amitriptyline [Elavil] 10 mg PO BEDTIME 06/02/19 [History] Past Medical History HEENT History: Reports: Cataract, Impaired Vision, Other (See Below) Other HEENT History: wears reading glasses, "ear problem-affecting balance and has noise in my ears", vestibular migraine Cardiovascular History: Reports: Hypertension Other Cardiovascular History: History of PVC's Respiratory History: Reports: Bronchitis, Recurrent Gastrointestinal History: Reports: Chronic Diarrhea, Diverticulosis, GERD, Hiatal Hernia Other Gastrointestinal History: Barretts syndrome 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 left arm. patella Neurological History: Reports: Concussion, Migraines, Vertigo Psychiatric History: Reports: Anxiety Endocrine/Metabolic History: Reports: Hypothyroidism, Other (See Below) Other Endocrine/Metabolic History: nodule on thyroid being removed 07/16/17 Oncologic (Cancer) History: Reports: Thyroid Dermatologic History: Reports: Other (See Below) Other Dermatologic History: rash in summer - Infectious Disease History Infectious Disease History: Reports: Chicken Pox, Measles, Mumps - Past Surgical History Head Surgeries/Procedures: Reports: None HEENT Surgical History: Reports: None Cardiovascular Surgical History: Reports: None Respiratory Surgical History: Reports: None GI Surgical History: Reports: Appendectomy, Cholecystectomy, Colonoscopy, EGD, Lysis of Adhesions, Carmen Fundoplication Endocrine Surgical History: Reports: Thyroidectomy Neurological Surgical History: Reports: Scoliosis Musculoskeletal Surgical History: Reports: Hip Replacement Dermatological Surgical History: Reports: None Social & Family History - Family History Family Medical History: Noncontributory - Tobacco Use Smoking Status *Q: Current Every Day Smoker Years of Tobacco use: 50 Packs/Tins Daily: 1 Used Tobacco, but Quit: No Second Hand Smoke Exposure: Yes - Caffeine Use Caffeine Use: Reports: Coffee Other Caffeine Use: 8 cups per day - Recreational Drug Use Recreational Drug Use: No ED ROS GENERAL - Review of Systems Review Of Systems: See Below Constitutional: Reports: Weakness, Fatigue, Decreased Appetite HEENT: Reports: No Symptoms Respiratory: Reports: No Symptoms Cardiovascular: Reports: No Symptoms Endocrine: Reports: No Symptoms GI/Abdominal: Reports: No Symptoms, Other (pt has a history of chronic diarrhea. ) : Reports: No Symptoms Musculoskeletal: Reports: No Symptoms Skin: Reports: No Symptoms ED EXAM, GENERAL - Physical Exam Exam: See Below Free Text/Narrative:: pt states that she had a good day yesterday and she was out in the yard doing things she did feel some dizziness at one point yesterday. She then got up today and she has been very fatiqued and liteheaded all day. Her appetite is poor but she does nmake herself eat/ Exam Limited By: No Limitations General Appearance: Alert, No Apparent Distress, Other (pupils are equal and reactive. ) Ears: Normal TMs Nose: Normal Inspection Throat/Mouth: Normal Inspection Head: Atraumatic Neck: Normal Inspection Respiratory/Chest: No Respiratory Distress, Other (pt thinks she did have a chest xray about 1 week ago. ) Cardiovascular: Regular Rate, Rhythm GI/Abdominal: Soft, Non-Tender, Other (pt does have sig dyspepsia. ) (Female) Exam: Deferred Rectal (Female) Exam: Deferred Back Exam: Normal Inspection Extremities: Normal Inspection Neurological: Alert, Oriented, Normal Cognition Psychiatric: Anxious Course - Vital Signs Last Recorded V/S: Last Vital Signs Temp 35.7 C 06/02/19 17:09 Pulse 71 06/02/19 19:58 Resp 16 06/02/19 17:09 BP 135/90 06/02/19 19:58 Pulse Ox 95 06/02/19 19:58 Orthostatic Blood Pressure [ 140/77 Standing] Orthostatic Blood Pressure [ 131/79 Sitting] Orthostatic Blood Pressure [ 131/73 Supine] - Orders/Labs/Meds Orders: Active Orders 24 hr Category Date Time Status Orthostatic Vital Signs [RC] ASDIRECTED Care 06/02/19 17:55 Active NS + KCl 20mEq/L [Normal Saline with 20 mEq KCl] 1,000 Med 06/02/19 18:30 Active ml IV ASDIRECTED Medication Orders Potassium Chloride/Sodium Chloride (Normal Saline With 20 Meq Kcl) 1,000 mls @ 500 mls/hr IV ASDIRECTED DARIUSZ Last Admin: 06/02/19 18:38 Dose: 500 mls/hr Labs: Laboratory Tests 06/02/19 06/02/19 06/02/19 Range/Units 17:49 17:49 17:49 WBC 12.3 H (4.5-11.0) K/uL RBC 5.25 (3.30-5.50) M/uL Hgb 15.6 H (12.0-15.0) g/dL Hct 46.7 (36.0-48.0) % MCV 89 (80-98) fL MCH 30 (27-31) pg MCHC 33 (32-36) % Plt Count 446 H (150-400) K/uL Neut % (Auto) 75 H (36-66) % Lymph % (Auto) 17 L (24-44) % [place] % (Auto) 7 H (2-6) % Eos % (Auto) 1 L (2-4) % Baso % (Auto) 0 (0-1) % Sodium 138 L (140-148) mmol/L Potassium 3.6 (3.6-5.2) mmol/L Chloride 101 (100-108) mmol/L Carbon Dioxide 28 (21-32) mmol/L Anion Gap 12.6 (5.0-14.0) mmol/L BUN 16 (7-18) mg/dL Creatinine 1.0 (0.6-1.0) mg/dL Est Cr Clr Drug Dosing 41.40 mL/min Estimated GFR (MDRD) 55 L (>60) Glucose 100 (74-106) mg/dL Calcium 9.1 (8.5-10.1) mg/dL Magnesium (1.8-2.4) mg/dL Total Bilirubin 0.7 (0.2-1.0) mg/dL AST 12 L (15-37) U/L ALT 20 (12-78) U/L Alkaline Phosphatase 73 (46-116) U/L C-Reactive Protein (0.0-0.3) mg/dL Total Protein 7.0 (6.4-8.2) g/dL Albumin 3.8 (3.4-5.0) g/dL Globulin 3.2 (2.3-3.5) g/dL Albumin/Globulin Ratio 1.2 (1.2-2.2) TSH, Ultra Sensitive (0.358-3.740) uIU/mL Urine Color Yellow (YELLOW) Urine Appearance Clear (CLEAR) Urine pH 7.0 (5.0-8.0) Ur Specific [place] 1.020 (1.008-1.030) Urine Protein Negative (NEGATIVE) mg/dL Urine Glucose (UA) Negative (NEGATIVE) mg/dL Urine Ketones Negative (NEGATIVE) mg/dL Urine Occult Blood Negative (NEGATIVE) Urine Nitrite Negative (NEGATIVE) Urine Bilirubin Negative (NEGATIVE) Urine Urobilinogen 0.2 (0.2-1.0) EU/dL Ur Leukocyte Esterase Trace H (NEGATIVE) Urine RBC Not seen (0-5) Urine WBC 0-5 (0-5) Ur Epithelial Cells Few Amorphous Sediment Not seen Urine Bacteria Not seen Urine Mucus Not seen 06/02/19 06/02/19 Range/Units 17:49 17:53 WBC (4.5-11.0) K/uL RBC (3.30-5.50) M/uL Hgb (12.0-15.0) g/dL Hct (36.0-48.0) % MCV (80-98) fL MCH (27-31) pg MCHC (32-36) % Plt Count (150-400) K/uL Neut % (Auto) (36-66) % Lymph % (Auto) (24-44) % [place] % (Auto) (2-6) % Eos % (Auto) (2-4) % Baso % (Auto) (0-1) % Sodium (140-148) mmol/L Potassium (3.6-5.2) mmol/L Chloride (100-108) mmol/L Carbon Dioxide (21-32) mmol/L Anion Gap (5.0-14.0) mmol/L BUN (7-18) mg/dL Creatinine (0.6-1.0) mg/dL Est Cr Clr Drug Dosing mL/min Estimated GFR (MDRD) (>60) Glucose (74-106) mg/dL Calcium (8.5-10.1) mg/dL Magnesium 1.8 (1.8-2.4) mg/dL Total Bilirubin (0.2-1.0) mg/dL AST (15-37) U/L ALT (12-78) U/L Alkaline Phosphatase (46-116) U/L C-Reactive Protein 0.09 (0.0-0.3) mg/dL Total Protein (6.4-8.2) g/dL Albumin (3.4-5.0) g/dL Globulin (2.3-3.5) g/dL Albumin/Globulin Ratio (1.2-2.2) TSH, Ultra Sensitive 0.081 L (0.358-3.740) uIU/mL Urine Color (YELLOW) Urine Appearance (CLEAR) Urine pH (5.0-8.0) Ur Specific [place] (1.008-1.030) Urine Protein (NEGATIVE) mg/dL Urine Glucose (UA) (NEGATIVE) mg/dL Urine Ketones (NEGATIVE) mg/dL Urine Occult Blood (NEGATIVE) Urine Nitrite (NEGATIVE) Urine Bilirubin (NEGATIVE) Urine Urobilinogen (0.2-1.0) EU/dL Ur Leukocyte Esterase (NEGATIVE) Urine RBC (0-5) Urine WBC (0-5) Ur Epithelial Cells Amorphous Sediment Urine Bacteria Urine Mucus Meds: Medications Generic Name Dose Route Start Last Admin Trade Name Freq PRN Reason Stop Dose Admin Potassium Chloride/Sodium Chloride 1,000 mls @ 500 mls/hr 06/02/19 18:30 18:38 Normal Saline With 20 Meq Kcl IV 500 mls/hr ASDIRECTED DARIUSZ Administration Discontinued Medications Generic Name Dose Route Start Last Admin Trade Name Freq PRN Reason Stop Dose Admin Diphenhydramine HCl 25 mg 06/02/19 20:40 Benadryl IVPUSH 06/02/19 20:41 ONETIME ONE Ketorolac Tromethamine 30 mg 06/02/19 20:40 Toradol IVPUSH 06/02/19 20:41 ONETIME ONE Prochlorperazine Edisylate 10 mg 06/02/19 20:40 Compazine IVPUSH 06/02/19 20:41 ONETIME ONE Departure - Departure Disposition: Home, Self-Care 01 Clinical Impression: Light headedness - Discharge Information Referrals: Srinivas Peterson MD [Primary Care Provider] - Forms: ED Department Discharge Additional Instructions: No driving tonight. If symptoms persist discuss with your doctor. - My Orders Last 24 Hours: My Active Orders 06/02/19 18:30 NS + KCl 20mEq/L [Normal Saline with 20 mEq KCl] 1,000 ml IV ASDIRECTED - Assessment/Plan Last 24 Hours: My Active Orders 06/02/19 18:30 NS + KCl 20mEq/L [Normal Saline with 20 mEq KCl] 1,000 ml IV ASDIRECTED <Mo Benjamin - Last Filed: 06/02/19 20:44> Course - Vital Signs Text/Narrative:: Patient's theory is that she is having a "silent migraine". I offered her a cocktail of Compazine, Toradol, and Benedryl, but she declined this. Not feeling better after IV fluids, will try the "migraine cocktail now previously offered". - Orders/Labs/Meds Meds: Medications Generic Name Dose Route Start Last Admin Trade Name Freq PRN Reason Stop Dose Admin Potassium Chloride/Sodium Chloride 1,000 mls @ 500 mls/hr 06/02/19 18:30 18:38 Normal Saline With 20 Meq Kcl IV 500 mls/hr ASDIRECTED DARIUSZ Administration Discontinued Medications Generic Name Dose Route Start Last Admin Trade Name Freq PRN Reason Stop Dose Admin Diphenhydramine HCl 25 mg 06/02/19 20:40 Benadryl IVPUSH 06/02/19 20:41 ONETIME ONE Ketorolac Tromethamine 30 mg 06/02/19 20:40 Toradol IVPUSH 06/02/19 20:41 ONETIME ONE Prochlorperazine Edisylate 10 mg 06/02/19 20:40 Compazine IVPUSH 06/02/19 20:41 ONETIME ONE - Radiology Interpretation Free Text/Narrative:: CXR-nothing acute Departure - Departure Time of Disposition: 21:05 Condition: Fair - Discharge Information *PRESCRIPTION DRUG MONITORING PROGRAM REVIEWED*: No *COPY OF PRESCRIPTION DRUG MONITORING REPORT IN PATIENT SHIRLENE: No - My Orders Last 24 Hours: My Active Orders 06/02/19 18:30 NS + KCl 20mEq/L [Normal Saline with 20 mEq KCl] 1,000 ml IV ASDIRECTED - Assessment/Plan Last 24 Hours: My Active Orders 06/02/19 18:30 NS + KCl 20mEq/L [Normal Saline with 20 mEq KCl] 1,000 ml IV ASDIRECTED
[2019-06-02] MEDS ORDERED: NS + KCl 20mEq/L 1,000 ML IV SCH (18:30)
--- NOTE | 2019-06-02 18:35 | CRLCR ---
Indication: Possible right sided lung nodule Technique: PA and lateral views of the chest were obtained. Comparison: CT dated May 28, 2019 Findings: The heart is normal in size. Scoliosis is identified. The lungs are hyperinflated. No infiltrate, pleural effusion or pneumothorax is identified. A pulmonary nodule is identified in the right lower lobe. Impression: Right lower lobe pulmonary nodule. Dictated by Shelbie Medel MD @ Jun 02 2019 6:29PM Signed by Dr. Shelbie Medel @ Jun 02 2019 6:32PM
[2019-06-02 19:59] VITALS: BP 135/90; PULSE 71
[2019-06-02] MEDS ORDERED: Prochlorperazine 10 MG/2 ML SDV IVPUSH ONE (20:40)
[2019-06-02] MEDS ORDERED: Ketorolac 30 MG/ML SDV IVPUSH ONE (20:40)
[2019-06-02] MEDS ORDERED: diphenhydrAMINE 50 MG/ML SDV IVPUSH ONE (20:40)
== END 2019-06-02 21:31 | disposition home or self-care (01) ==
LOC: JP.ED 16:48
DX: R42 Dizziness and giddiness (principal); I10 Essential (primary) hypertension; K21.9 Gastro-esophageal reflux disease without esophagitis; E03.9 Hypothyroidism, unspecified; F41.9 Anxiety disorder, unspecified; F17.210 Nicotine dependence, cigarettes, uncomplicated; Z91.030 Bee allergy status; Z79.899 Other long term (current) drug therapy; Z79.890 Hormone replacement therapy
CPT/HCPCS: 36415; 71046; 80053; 81001; 83735; 84443; 85025; 86140; 96361; 96374; 96375; 99284; J0780; J1200; J1885; J3480

== ENCOUNTER 2019-06-10 14:18 | Emergency (ER) | payer MEDICARE, BC ==
[2019-06-10 14:54] VITALS: BP 125/94; PULSE 94
[2019-06-10] MEDS ORDERED: HYDROmorphone 0.5 MG/0.5 ML Syringe IVPUSH ONE (14:59)
[2019-06-10] MEDS ORDERED: Ondansetron 4 MG/2 ML SDV IVPUSH ONE (14:59)
[2019-06-10] MEDS ORDERED: Sodium Chloride 0.9% 1,000 ML IV SCH (15:00)
--- NOTE | 2019-06-10 15:08 | EDM.PDOC ---
ED HPI GENERAL MEDICAL PROBLEM - General Chief Complaint: Abdominal Pain Stated Complaint: ABD PAIN Time Seen by Provider: 06/10/19 15:04 Source of Information: Reports: Patient History Limitations: Reports: No Limitations - History of Present Illness INITIAL COMMENTS - FREE TEXT/NARRATIVE: pt arrived with pain in the upper abdoman. She was just at the [facility] and she left there and as she was leaving she suddenly developed the abdomanal pain. She rated her pain a 10. She has had this recently and was gastrocoped. She now has an appt with gastroenterology. Onset: Today, Sudden Duration: Hour(s): Location: Reports: Abdomen Associated Symptoms: Reports: Other ( severe abdomanal pain. ) Abdominal Pain Score (Numeric/FACES): 10 - Related Data Allergies Allergy/AdvReac Type Severity Reaction Status Date / Time bee venom protein (honey bee) Allergy Syncope Verified 06/02/19 17:06 Home Meds: Home Meds hydroCHLOROthiazide [Hydrochlorothiazide] 25 mg PO DAILY 05/30/13 [History] Lansoprazole [Prevacid] 30 mg PO DAILY 11/06/13 [History] Albuterol Sulfate [Proair Hfa] 2 puff INH Q4HR PRN 11/01/16 [History] EPINEPHrine [Epipen 2-Jed] 0.3 ml IM ASDIRECTED PRN 11/01/16 [History] Multivitamin with Minerals [Multiple Vitamin] 1 tab PO DAILY 03/08/17 [History] Magnesium Oxide [Magnesium] 400 mg PO DAILY 07/09/17 [History] Fluticasone Propionate [Flonase] 2 spray JOSEP DAILY 02/28/18 [History] Levothyroxine [Synthroid] 100 mcg PO DAILY 02/28/18 [History] Potassium Chloride 20 meq PO DAILY 09/09/18 [History] Calcium Carbonate/Vitamin D3 [Calcium 500 + Vit D Caplet] 1 cap PO DAILY [History] Incruse 1 puff INH DAILY 03/01/19 [History] Triamcinolone Acetonide [Triamcinolone Acetonide Lotion] 2 applic TOP BID [History] Bismuth Subsalicylate [Pepto Bismol] 30 ml PO DAILY PRN 05/28/19 [History] Meclizine [Antivert] 25 mg PO DAILY PRN 05/28/19 [History] Amitriptyline [Elavil] 10 mg PO BEDTIME 06/02/19 [History] Acetaminophen/oxyCODONE [Percocet 325-5 MG] 06/10/19 [History] Past Medical History HEENT History: Reports: Cataract, Impaired Vision, Other (See Below) Other HEENT History: wears reading glasses, "ear problem-affecting balance and has noise in my ears", vestibular migraine Cardiovascular History: Reports: Hypertension Other Cardiovascular History: History of PVC's Respiratory History: Reports: Bronchitis, Recurrent Gastrointestinal History: Reports: Chronic Diarrhea, Diverticulosis, GERD, Hiatal Hernia Other Gastrointestinal History: Barretts syndrome 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 left arm. patella Neurological History: Reports: Concussion, Migraines, Vertigo Psychiatric History: Reports: Anxiety Endocrine/Metabolic History: Reports: Hypothyroidism, Other (See Below) Other Endocrine/Metabolic History: nodule on thyroid being removed 07/16/17 Oncologic (Cancer) History: Reports: Thyroid Dermatologic History: Reports: Other (See Below) Other Dermatologic History: rash in summer - Infectious Disease History Infectious Disease History: Reports: Chicken Pox, Measles, Mumps - Past Surgical History Head Surgeries/Procedures: Reports: None HEENT Surgical History: Reports: None Cardiovascular Surgical History: Reports: None Respiratory Surgical History: Reports: None GI Surgical History: Reports: Appendectomy, Cholecystectomy, Colonoscopy, EGD, Lysis of Adhesions, Carmen Fundoplication Endocrine Surgical History: Reports: Thyroidectomy Neurological Surgical History: Reports: Scoliosis Musculoskeletal Surgical History: Reports: Hip Replacement Dermatological Surgical History: Reports: None Social & Family History - Family History Family Medical History: Noncontributory - Tobacco Use Smoking Status *Q: Heavy Tobacco Smoker Years of Tobacco use: 50 Packs/Tins Daily: 1 - Caffeine Use Caffeine Use: Reports: Coffee Other Caffeine Use: 8 cups per day - Recreational Drug Use Recreational Drug Use: No ED ROS GENERAL - Review of Systems Review Of Systems: See Below Constitutional: Reports: No Symptoms, Decreased Appetite HEENT: Reports: No Symptoms Respiratory: Reports: No Symptoms Cardiovascular: Reports: No Symptoms Endocrine: Reports: No Symptoms GI/Abdominal: Reports: Abdominal Pain, Other ( sudden onset. ) : Reports: No Symptoms Musculoskeletal: Reports: No Symptoms Skin: Reports: No Symptoms Neurological: Reports: No Symptoms ED EXAM, GI/ABD - Physical Exam Exam: See Below Text/Narrative:: pt arrived with acute upper abdomanal pain which started after her clinic visit. Exam Limited By: No Limitations General Appearance: Alert, Anxious, Moderate Distress Ears: Normal TMs Nose: Normal Inspection Throat/Mouth: Normal Inspection Head: Atraumatic Neck: Normal Inspection Respiratory/Chest: No Respiratory Distress Cardiovascular: Regular Rate, Rhythm GI/Abdominal Exam: No Distention, Tender, Other (pt is tender in the upper abdoman. ) (Female) Exam: Deferred Rectal (Female) Exam: Deferred Back Exam: Normal Inspection Extremities: Normal Inspection Neurological: Alert, Oriented, Normal Cognition Course - Vital Signs Last Recorded V/S: Last Vital Signs Temp 36.3 C 06/10/19 14:37 Pulse 94 06/10/19 14:37 Resp 13 06/10/19 14:37 BP 125/94 H 06/10/19 14:37 Pulse Ox 96 06/10/19 14:37 - Orders/Labs/Meds Orders: Active Orders 24 hr Category Date Time Status UA W/MICROSCOPIC [URIN] Urgent Lab 06/10/19 14:40 Ordered Sodium Chloride 0.9% [Normal Saline] 1,000 ml Med 06/10/19 15:00 Active IV ASDIRECTED Medication Orders Sodium Chloride (Normal Saline) 1,000 mls @ 999 mls/hr IV ASDIRECTED DARIUSZ Last Admin: 06/10/19 15:29 Dose: 999 mls/hr Labs: Laboratory Tests 06/10/19 06/10/19 06/10/19 Range/Units 14:44 14:44 15:00 WBC 11.1 H (4.5-11.0) K/uL RBC 5.12 (3.30-5.50) M/uL Hgb 15.0 (12.0-15.0) g/dL Hct 45.2 (36.0-48.0) % MCV 88 (80-98) fL MCH 29 (27-31) pg MCHC 33 (32-36) % Plt Count 510 H (150-400) K/uL Neut % (Auto) 66 (36-66) % Lymph % (Auto) 26 (24-44) % [place] % (Auto) 6 (2-6) % Eos % (Auto) 2 (2-4) % Baso % (Auto) 0 (0-1) % Sodium 137 L (140-148) mmol/L Potassium 3.3 L (3.6-5.2) mmol/L Chloride 101 (100-108) mmol/L Carbon Dioxide 25 (21-32) mmol/L Anion Gap 14.3 H (5.0-14.0) mmol/L BUN 12 (7-18) mg/dL Creatinine 0.8 (0.6-1.0) mg/dL Est Cr Clr Drug Dosing 51.75 mL/min Estimated GFR (MDRD) > 60 (>60) Glucose 135 H (74-106) mg/dL Calcium 8.9 (8.5-10.1) mg/dL Magnesium 1.6 L (1.8-2.4) mg/dL Total Bilirubin 0.8 (0.2-1.0) mg/dL AST 11 L (15-37) U/L ALT 21 (12-78) U/L Alkaline Phosphatase 67 (46-116) U/L C-Reactive Protein 0.08 (0.0-0.3) mg/dL Total Protein 6.7 (6.4-8.2) g/dL Albumin 3.8 (3.4-5.0) g/dL Globulin 2.9 (2.3-3.5) g/dL Albumin/Globulin Ratio 1.3 (1.2-2.2) Lipase 45 L (73-393) U/L Meds: Medications Generic Name Dose Route Start Last Admin Trade Name Freq PRN Reason Stop Dose Admin Sodium Chloride 1,000 mls @ 999 mls/hr 06/10/19 15:00 06/10/19 15:29 Normal Saline IV 999 mls/hr ASDIRECTED DARIUSZ Administration Discontinued Medications Generic Name Dose Route Start Last Admin Trade Name Freq PRN Reason Stop Dose Admin Hydromorphone HCl 0.5 mg 06/10/19 14:59 06/10/19 15:09 Dilaudid IVPUSH 06/10/19 15:00 0.5 mg ONETIME ONE Administration Ondansetron HCl 4 mg 06/10/19 14:59 06/10/19 15:10 Zofran IVPUSH 06/10/19 15:00 4 mg ONETIME ONE Administration - Re-Assessments/Exams Free Text/Narrative Re-Assessment/Exam: 06/10/19 16:49 pt had a flat and upright of the abdoman which was not remarkable . Lab work was normal. She was given a liter of fluids and dilaudid >5 and her pain is now gone. She has a appt with gastro in [place] next week. She will keep that appt. Departure - Departure Time of Disposition: 16:51 Disposition: Home, Self-Care 01 Condition: Fair Clinical Impression: Stomach spasm - Discharge Information Referrals: Srinivas Peterson MD [Primary Care Provider] - Forms: ED Department Discharge Care Plan Goals: keep gastro appt, --next week, If pain happens use ativan .5 plus tylenol or percocet for the acute pain. - My Orders Last 24 Hours: My Active Orders 06/10/19 14:40 UA W/MICROSCOPIC [URIN] Urgent 06/10/19 15:00 Sodium Chloride 0.9% [Normal Saline] 1,000 ml IV ASDIRECTED - Assessment/Plan Last 24 Hours: My Active Orders 06/10/19 14:40 UA W/MICROSCOPIC [URIN] Urgent 06/10/19 15:00 Sodium Chloride 0.9% [Normal Saline] 1,000 ml IV ASDIRECTED
--- NOTE | 2019-06-10 16:00 | CRLCR ---
Indication: Pain. Technique: AP supine and upright views of the abdomen and pelvis were obtained. PA view of the chest was obtained. Comparison: Chest x-ray dated June 02, 2019. Findings: Dextroscoliosis of the thoracic spine is identified with compensatory levoscoliosis of the lumbar spine. Heart is normal in size. The lungs are clear. No infiltrate, pleural effusion, pneumothorax is identified. Surgical clips are identified in the right and left upper quadrants. Postoperative changes of right hip arthroplasty are identified. No free air is identified. The bowel gas pattern is nonobstructive. Impression: Nonobstructive bowel gas pattern. No free air. No acute cardiopulmonary process. Dictated by Shelbie Medel MD @ Jun 10 2019 3:58PM Signed by Dr. Shelbie Medel @ Jun 10 2019 3:59PM
== END 2019-06-10 17:06 | disposition home or self-care (01) ==
LOC: JP.ED 14:18
DX: K31.89 Other diseases of stomach and duodenum (principal); F17.210 Nicotine dependence, cigarettes, uncomplicated; I10 Essential (primary) hypertension; F41.9 Anxiety disorder, unspecified; E03.9 Hypothyroidism, unspecified; K21.9 Gastro-esophageal reflux disease without esophagitis; Z79.899 Other long term (current) drug therapy; Z91.030 Bee allergy status
CPT/HCPCS: 36415; 74022; 80053; 83690; 83735; 85025; 86140; 96361; 96374; 96375; 99284; J1170; J2405; J7030

== ENCOUNTER 2019-07-01 11:02 | Emergency (ER) | payer MEDICARE, BC ==
[2019-07-01 11:11] VITALS: BP 147/87; PULSE 96
--- NOTE | 2019-07-01 11:36 | EDM.PDOC ---
ED HPI GENERAL MEDICAL PROBLEM - General Chief Complaint: Abdominal Pain Stated Complaint: ABDOMINAL PAIN Time Seen by Provider: 07/01/19 11:15 Source of Information: Reports: Patient History Limitations: Reports: No Limitations - History of Present Illness INITIAL COMMENTS - FREE TEXT/NARRATIVE: 68-year-old female with chronic abdominal pain, feels much worse this morning and came in to be seen. Nausea but no vomiting, bowels are moving, she is able to eat, she has an esophageal procedure scheduled at [place] on 21 July. She doesn't think she can wait that long. No fevers or chills. Denies abdominal distention, pain is mostly periumbilical and just below the umbilicus. Abdominal Pain Score (Numeric/FACES): 10 - Related Data Allergies Allergy/AdvReac Type Severity Reaction Status Date / Time bee venom protein (honey bee) Allergy Syncope Verified 07/01/19 11:15 Home Meds: Home Meds hydroCHLOROthiazide [Hydrochlorothiazide] 25 mg PO DAILY 05/30/13 [History] Lansoprazole [Prevacid] 30 mg PO DAILY 11/06/13 [History] Albuterol Sulfate [Proair Hfa] 2 puff INH Q4HR PRN 11/01/16 [History] EPINEPHrine [Epipen 2-Jed] 0.3 ml IM ASDIRECTED PRN 11/01/16 [History] Multivitamin with Minerals [Multiple Vitamin] 1 tab PO DAILY 03/08/17 [History] Magnesium Oxide [Magnesium] 400 mg PO DAILY 07/09/17 [History] Fluticasone Propionate [Flonase] 2 spray JOSEP DAILY 02/28/18 [History] Levothyroxine [Synthroid] 100 mcg PO DAILY 02/28/18 [History] Potassium Chloride 20 meq PO DAILY 09/09/18 [History] Calcium Carbonate/Vitamin D3 [Calcium 500 + Vit D Caplet] 1 cap PO DAILY [History] Incruse 1 puff INH DAILY 03/01/19 [History] Triamcinolone Acetonide [Triamcinolone Acetonide Lotion] 2 applic TOP BID [History] Bismuth Subsalicylate [Pepto Bismol] 30 ml PO DAILY PRN 05/28/19 [History] Meclizine [Antivert] 25 mg PO DAILY PRN 05/28/19 [History] Amitriptyline [Elavil] 10 mg PO BEDTIME 06/02/19 [History] Acetaminophen/oxyCODONE [Percocet 325-5 MG] 06/10/19 [History] Past Medical History HEENT History: Reports: Cataract, Impaired Vision, Other (See Below) Other HEENT History: wears reading glasses, "ear problem-affecting balance and has noise in my ears", vestibular migraine Cardiovascular History: Reports: Hypertension Other Cardiovascular History: History of PVC's Respiratory History: Reports: Bronchitis, Recurrent Gastrointestinal History: Reports: Chronic Diarrhea, Diverticulosis, GERD, Hiatal Hernia 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 left arm. patella Neurological History: Reports: Concussion, Migraines, Vertigo Psychiatric History: Reports: Anxiety Endocrine/Metabolic History: Reports: Hypothyroidism, Other (See Below) Other Endocrine/Metabolic History: nodule on thyroid being removed 07/16/17 Oncologic (Cancer) History: Reports: Thyroid Dermatologic History: Reports: Other (See Below) Other Dermatologic History: rash in summer - Infectious Disease History Infectious Disease History: Reports: Chicken Pox, Measles, Mumps - Past Surgical History Head Surgeries/Procedures: Reports: None HEENT Surgical History: Reports: None Cardiovascular Surgical History: Reports: None Respiratory Surgical History: Reports: None GI Surgical History: Reports: Appendectomy, Cholecystectomy, Colonoscopy, EGD, Lysis of Adhesions, Carmen Fundoplication Endocrine Surgical History: Reports: Thyroidectomy Neurological Surgical History: Reports: Scoliosis Musculoskeletal Surgical History: Reports: Hip Replacement Dermatological Surgical History: Reports: None Social & Family History - Family History Family Medical History: Noncontributory - Tobacco Use Years of Tobacco use: 50 Packs/Tins Daily: 1 - Caffeine Use Caffeine Use: Reports: Coffee Other Caffeine Use: 8 cups per day - Recreational Drug Use Recreational Drug Use: No ED ROS GENERAL - Review of Systems Review Of Systems: See Below Constitutional: Reports: Malaise, Decreased Appetite. Denies: Fever, Chills, Weight Loss HEENT: Reports: No Symptoms Respiratory: Denies: Shortness of Breath Cardiovascular: Denies: Chest Pain GI/Abdominal: Reports: Abdominal Pain, Decreased Appetite, Nausea. Denies: Vomiting Skin: Reports: Pallor, Diaphoresis Neurological: Reports: Dizziness, Weakness ED EXAM, GI/ABD - Physical Exam Exam: See Below Exam Limited By: No Limitations General Appearance: Alert, Mild Distress Eyes: Bilateral: Normal Appearance (No jaundice) Respiratory/Chest: No Respiratory Distress, Lungs Clear Cardiovascular: Regular Rate, Rhythm GI/Abdominal Exam: Normal Bowel Sounds, Tender (Extremely tender to even light palpation around the periumbilical area and suprapubic area) Extremities: No: Pedal Edema Neurological: Alert, Oriented Psychiatric: Anxious Skin Exam: Diaphoretic Course - Vital Signs Last Recorded V/S: Last Vital Signs Temp 98.8 F 07/01/19 11:11 Pulse 96 07/01/19 11:11 Resp 20 07/01/19 11:11 BP 147/87 H 07/01/19 11:11 Pulse Ox 97 07/01/19 11:11 - Orders/Labs/Meds Labs: Laboratory Tests 07/01/19 07/01/19 07/01/19 Range/Units 11:34 11:34 11:34 WBC 12.3 H (4.5-11.0) K/uL RBC 4.81 (3.30-5.50) M/uL Hgb 14.6 (12.0-15.0) g/dL Hct 42.8 (36.0-48.0) % MCV 89 (80-98) fL MCH 30 (27-31) pg MCHC 34 (32-36) % Plt Count 510 H (150-400) K/uL Neut % (Auto) 75 H (36-66) % Lymph % (Auto) 19 L (24-44) % Spencer % (Auto) 5 (2-6) % Eos % (Auto) 1 L (2-4) % Baso % (Auto) 0 (0-1) % Lactic Acid 1.8 (0.4-2.0) mmol/L Lipase 57 L (73-393) U/L Meds: Medications Discontinued Medications Generic Name Dose Route Start Last Admin Trade Name Freq PRN Reason Stop Dose Admin Dicyclomine HCl 10 mg 07/01/19 12:15 07/01/19 12:19 Bentyl PO 07/01/19 12:16 10 mg ONETIME ONE Administration - Re-Assessments/Exams Free Text/Narrative Re-Assessment/Exam: 07/01/19 12:17 No further treatment was given as the patient started to improve. CBC, lipase and lactic acid were drawn all reassuring. Patient said her abdomen "softened and went down, it doesn't feel hard and the pain is gone". This sounds like recurring abdominal spasm, possibly of the colon. She was given 1 dose of 10 mg dicyclomine, and a prescription for 20 more doses to use up to [address] and MRI of the abdomen, as well as labs and consults were reviewed, I don't feel anything else can be offered to the patient at this time especially in light that she is back to baseline and having no significant pain Departure - Departure Time of Disposition: 12:36 Disposition: Home, Self-Care 01 Clinical Impression: Abdominal pain Qualifiers: Abdominal location: periumbilical Qualified Code(s): R10.33 - Periumbilical pain - Discharge Information Instructions: Irritable Bowel Syndrome, Adult Referrals: PCP,None [Primary Care Provider] - Forms: ED Department Discharge Care Plan Goals: Continue your current medications, and consider using Bentyl every 6-8 hours to reduce intensity of bowel spasms and pain. Return anytime if worsening such as fever, persistent continuous pain, or nausea and vomiting.
[2019-07-01] MEDS ORDERED: Dicyclomine 10 MG Cap PO ONE (12:15)
== END 2019-07-01 12:36 | disposition home or self-care (01) ==
LOC: JP.ED 11:02
DX: R10.33 Periumbilical pain (principal); I10 Essential (primary) hypertension; K21.9 Gastro-esophageal reflux disease without esophagitis; E03.9 Hypothyroidism, unspecified; Z91.030 Bee allergy status; Z79.899 Other long term (current) drug therapy; Z79.890 Hormone replacement therapy
CPT/HCPCS: 36415; 83605; 83690; 85025; 99284; A9270

== ENCOUNTER 2019-08-29 12:02 | Emergency (ER) | payer MEDICARE, BC ==
[2019-08-29 12:17] VITALS: BP 150/88; PULSE 91
[2019-08-29] MEDS ORDERED: Dicyclomine 20 MG/2 ML SDV IM ONE (12:34)
[2019-08-29] MEDS ORDERED: Ondansetron 4 MG Tab.DIS PO ONE (12:34)
--- NOTE | 2019-08-29 12:40 | EDM.PDOC ---
ED HPI GENERAL MEDICAL PROBLEM - General Chief Complaint: Abdominal Pain Stated Complaint: UPPER STOMACH PAIN Time Seen by Provider: 08/29/19 12:25 Source of Information: Reports: Patient, Old Records, RN History Limitations: Reports: No Limitations - History of Present Illness INITIAL COMMENTS - FREE TEXT/NARRATIVE: 68 yo female here with onset this morning of significant abdominal cramping. No change in bowels. Minimal nausea. No fever. Has had this problem worked up extensively and nothing has been found. Had some 10 mg dicyclomine from her last ER visit. She took one dose and didn't get relief so came in. Says Dilaudid has helped in the past. Has no gallbladder. Onset: Today Onset Date: 08/29/19 Duration: Hour(s):, Waxing/Waning Location: Reports: Abdomen Quality: Reports: Other (cramping) Severity: Severe Improves with: Reports: None Worsens with: Reports: Other (unknown) Context: Reports: Other (see HPI) Associated Symptoms: Reports: Nausea/Vomiting (very mild nausea, no vomiting). 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 below) (10 mg dicyclomine po) - Related Data Allergies Allergy/AdvReac Type Severity Reaction Status Date / Time bee venom protein (honey bee) Allergy Syncope Verified 08/29/19 12:15 Home Meds: Home Meds hydroCHLOROthiazide [Hydrochlorothiazide] 25 mg PO DAILY 05/30/13 [History] Lansoprazole [Prevacid] 30 mg PO DAILY 11/06/13 [History] Albuterol Sulfate [Proair Hfa] 2 puff INH Q4HR PRN 11/01/16 [History] EPINEPHrine [Epipen 2-Jed] 0.3 ml IM ASDIRECTED PRN 11/01/16 [History] Multivitamin with Minerals [Multiple Vitamin] 1 tab PO DAILY 03/08/17 [History] Magnesium Oxide [Magnesium] 400 mg PO DAILY 07/09/17 [History] Fluticasone Propionate [Flonase] 2 spray JOSEP DAILY 02/28/18 [History] Levothyroxine [Synthroid] 100 mcg PO DAILY 02/28/18 [History] Potassium Chloride 20 meq PO DAILY 09/09/18 [History] Calcium Carbonate/Vitamin D3 [Calcium 500 + Vit D Caplet] 1 cap PO DAILY [History] Incruse 1 puff INH DAILY 03/01/19 [History] Triamcinolone Acetonide [Triamcinolone Acetonide Lotion] 2 applic TOP BID PRN [History] Bismuth Subsalicylate [Pepto Bismol] 30 ml PO DAILY PRN 05/28/19 [History] Meclizine [Antivert] 25 mg PO DAILY PRN 05/28/19 [History] Acetaminophen/oxyCODONE [Percocet 325-5 MG] 1 - 2 tab PO Q6H PRN 06/10/19 [ History] Celecoxib [CeleBREX] 200 mg PO DAILY 08/26/19 [History] L.acidoph,Paracasei, B.lactis [Probiotic] 1 tab PO DAILY 08/26/19 [History] Dicyclomine [Bentyl] 10 mg PO Q6HR PRN 08/29/19 [History] Past Medical History HEENT History: Reports: Cataract, Impaired Vision, Other (See Below) Other HEENT History: wears reading glasses, "ear problem-affecting balance and has noise in my ears", vestibular migraine Cardiovascular History: Reports: Hypertension Other Cardiovascular History: History of PVC's Respiratory History: Reports: Bronchitis, Recurrent Gastrointestinal History: Reports: Chronic Diarrhea, Diverticulosis, GERD, Hiatal Hernia 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 left arm. patella Neurological History: Reports: Concussion, Migraines, Vertigo Psychiatric History: Reports: Anxiety Endocrine/Metabolic History: Reports: Hypothyroidism, Other (See Below) Other Endocrine/Metabolic History: nodule on thyroid being removed 07/16/17 Oncologic (Cancer) History: Reports: Thyroid Dermatologic History: Reports: Other (See Below) Other Dermatologic History: rash in summer - Infectious Disease History Infectious Disease History: Reports: Chicken Pox, Measles, Mumps - Past Surgical History Head Surgeries/Procedures: Reports: None HEENT Surgical History: Reports: None Cardiovascular Surgical History: Reports: None Respiratory Surgical History: Reports: None GI Surgical History: Reports: Appendectomy, Cholecystectomy, Colonoscopy, EGD, Lysis of Adhesions, Carmen Fundoplication Endocrine Surgical History: Reports: Thyroidectomy Neurological Surgical History: Reports: Scoliosis Musculoskeletal Surgical History: Reports: Hip Replacement Dermatological Surgical History: Reports: None Social & Family History - Family History Family Medical History: Noncontributory - Tobacco Use Smoking Status *Q: Current Every Day Smoker Years of Tobacco use: 50 Packs/Tins Daily: 1 - Caffeine Use Caffeine Use: Reports: Coffee Other Caffeine Use: 8 cups per day ED ROS GENERAL - Review of Systems Review Of Systems: See Below Constitutional: Reports: No Symptoms HEENT: Reports: No Symptoms Respiratory: Reports: No Symptoms Cardiovascular: Reports: No Symptoms Endocrine: Reports: No Symptoms GI/Abdominal: Reports: Abdominal Pain, Nausea. Denies: Black Stool, Bloody Stool, Constipation, Diarrhea (Has had issues with diarrhea and more rarely constipation in the past, not now.), Distension, Flatus, Hematemesis, Hematochezia, Melena, Vomiting Skin: Reports: No Symptoms Neurological: Reports: No Symptoms Psychiatric: Reports: No Symptoms ED EXAM, GI/ABD - Physical Exam Exam: See Below Exam Limited By: No Limitations General Appearance: Alert, WD/WN, Mild Distress Eyes: Bilateral: Normal Appearance Ears: Normal External Exam, Normal Canal, Hearing Grossly Normal Nose: Normal Inspection, No Blood Throat/Mouth: Normal Inspection, Normal Lips, Normal Oropharynx, Normal Voice, No Airway Compromise Head: Atraumatic, Normocephalic Neck: Normal Inspection Respiratory/Chest: No Respiratory Distress, Lungs Clear, Normal Breath Sounds, No Accessory Muscle Use Cardiovascular: Regular Rate, Rhythm, No Edema GI/Abdominal Exam: Distended (mildly), Guarding (mild), Tender (diffusely, more RUQ currently), Abnormal Bowel Sounds (increased). No: Non-Tender, No Distention, Rigid, Rebound Back Exam: Normal Inspection. No: CVA Tenderness (R), CVA Tenderness (L) Extremities: Normal Inspection, Normal Range of Motion, Non-Tender, No Pedal Edema Neurological: Alert, Oriented, CN II-XII Intact, Normal Cognition, No Motor/ Sensory Deficits Psychiatric: Normal Affect, Normal Mood Skin Exam: Warm, Dry, Intact, Normal Color, No Rash Course - Vital Signs Text/Narrative:: 13 min after IM dicyclomine her cramping is now gone. Last Recorded V/S: Last Vital Signs Temp 36.2 C 08/29/19 12:25 Pulse 91 08/29/19 12:25 Resp 20 08/29/19 12:25 BP 150/88 H 08/29/19 12:25 Pulse Ox 92 L 08/29/19 12:25 - Orders/Labs/Meds Meds: Medications Discontinued Medications Generic Name Dose Route Start Last Admin Trade Name Vlad PRN Reason Stop Dose Admin Dicyclomine HCl 20 mg 08/29/19 12:34 08/29/19 12:53 Bentyl IM 08/29/19 12:35 20 mg ONETIME ONE Administration Ondansetron HCl 4 mg 08/29/19 12:34 08/29/19 13:01 Zofran Odt PO 08/29/19 12:35 4 mg ONETIME ONE Administration - Radiology Interpretation Free Text/Narrative:: Flat/upright abd [id number]: A few scattered air-fluid levels within nondistended loops of small bowel are nonspecific and could be seen with focal ileus or enteritis. Otherwise nonobstructed bowel-gas pattern. Dictated by Hawa Luna MD @ 08/29/2019 2:20:46 PM Departure - Departure Time of Disposition: 14:33 Disposition: Home, Self-Care 01 Condition: Good Clinical Impression: Intestinal cramps IBS (irritable bowel syndrome) Qualifiers: Irritable bowel syndrome type: unspecified Qualified Code(s): K58.9 - Irritable bowel syndrome without diarrhea - Discharge Information *PRESCRIPTION DRUG MONITORING PROGRAM REVIEWED*: No *COPY OF PRESCRIPTION DRUG MONITORING REPORT IN PATIENT SHIRLENE: No Instructions: Irritable Bowel Syndrome, Adult Referrals: Srinivas Peterson MD [Primary Care Provider] - Forms: ED Department Discharge Additional Instructions: Increase your dicyclomine to 20 mg every 6 hrs or 40 mg every 8 hrs. May also take simethicone and/or acetaminophen with this. Discuss a trial of digestive enzymes with your doctor. Avoid food triggers. Recheck as needed. Sepsis Event Note - Evaluation Sepsis Screening Result: No Definite Risk - Focused Exam Vital Signs: Vital Signs Temp Pulse Resp BP Pulse Ox 08/29/19 12:25 36.2 C 91 20 150/88 H 92 L 08/29/19 12:13 36.2 C 91 20 150/88 H 92 L Date Exam was Performed: 08/29/19 Time Exam was Performed: 14:23
--- NOTE | 2019-08-29 14:23 | CRLCR ---
INDICATION: Generalized abdominal pain TECHNIQUE: Abdomen 2 view. COMPARISON: Abdominal radiograph 06/10/2019 FINDINGS: There are few scattered nonspecific air fluid level in nondistended loops small bowel. There is a small amount retained stool throughout the colon. Multiple surgical clips are seen over the abdomen. Degenerative changes are present within the spine. There are postsurgical changes of right hip arthroplasty. IMPRESSION: A few scattered air-fluid levels within nondistended loops of small bowel are nonspecific and could be seen with focal ileus or enteritis. Otherwise nonobstructed bowel-gas pattern. Dictated by Hawa Luna MD @ 08/29/2019 2:20:46 PM Dictated by: Hawa Luna MD @ 08/29/2019 14:21:18 (Electronically Signed)
== END 2019-08-29 15:28 | disposition home or self-care (01) ==
LOC: JP.ED 12:02
DX: K58.9 Irritable bowel syndrome, unspecified (principal); R10.11 Right upper quadrant pain; I10 Essential (primary) hypertension; K21.9 Gastro-esophageal reflux disease without esophagitis; M19.90 Unspecified osteoarthritis, unspecified site; F41.9 Anxiety disorder, unspecified; E03.9 Hypothyroidism, unspecified; F17.210 Nicotine dependence, cigarettes, uncomplicated; Z90.49 Acquired absence of other specified parts of digestive tract; Z91.030 Bee allergy status; Z79.899 Other long term (current) drug therapy
CPT/HCPCS: 74019; 96372; 99284; A9270; J0500

== ENCOUNTER 2019-09-09 18:52 | Emergency (ER) | payer MEDICARE, BC ==
[2019-09-09 20:34] VITALS: BP 141/84; PULSE 65
[2019-09-09] MEDS ORDERED: hydrOXYzine HCl 25 MG Tab PO ONE (20:42)
--- NOTE | 2019-09-09 20:59 | EDM.PDOC ---
ED HPI GENERAL MEDICAL PROBLEM - General Chief Complaint: Abdominal Pain Stated Complaint: ABDOMINAL PAIN Time Seen by Provider: 09/09/19 19:23 Source of Information: Reports: Patient History Limitations: Reports: No Limitations - History of Present Illness INITIAL COMMENTS - FREE TEXT/NARRATIVE: chief complaint: abdominal pain due to spasms. This is a 68 year old female presents to the ER for evaluation of spasm, which at this time have resolved. She reports she has had abdominal pain and spasms for years and years. She has had MRI, CT scan, Abdominal x rays, EGD and Colonoscopy at least 8 times. surgeries include Nisson x 30 years ago. She reports was seen today by Dr. Floyd, but didn't tell her her abdomen was hurting. 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: Other (see below) middle upper abd Pain Score (Numeric/FACES): 8 - Related Data Allergies Allergy/AdvReac Type Severity Reaction Status Date / Time bee venom protein (honey bee) Allergy Syncope Verified 09/09/19 20:06 Home Meds: Home Meds hydroCHLOROthiazide [Hydrochlorothiazide] 25 mg PO DAILY 05/30/13 [History] Lansoprazole [Prevacid] 30 mg PO DAILY 11/06/13 [History] Albuterol Sulfate [Proair Hfa] 2 puff INH Q4HR PRN 11/01/16 [History] EPINEPHrine [Epipen 2-Jed] 0.3 ml IM ASDIRECTED PRN 11/01/16 [History] Multivitamin with Minerals [Multiple Vitamin] 1 tab PO DAILY 03/08/17 [History] Magnesium Oxide [Magnesium] 400 mg PO DAILY 07/09/17 [History] Fluticasone Propionate [Flonase] 2 spray JOSEP DAILY 02/28/18 [History] Levothyroxine [Synthroid] 100 mcg PO DAILY 02/28/18 [History] Potassium Chloride 20 meq PO DAILY 09/09/18 [History] Calcium Carbonate/Vitamin D3 [Calcium 500 + Vit D Caplet] 1 cap PO DAILY [History] Incruse 1 puff INH DAILY 03/01/19 [History] Triamcinolone Acetonide [Triamcinolone Acetonide Lotion] 2 applic TOP BID PRN [History] Bismuth Subsalicylate [Pepto Bismol] 30 ml PO DAILY PRN 05/28/19 [History] Meclizine [Antivert] 25 mg PO DAILY PRN 05/28/19 [History] Celecoxib [CeleBREX] 200 mg PO DAILY 08/26/19 [History] L.acidoph,Paracasei, B.lactis [Probiotic] 1 tab PO DAILY 08/26/19 [History] Dicyclomine [Bentyl] 10 mg PO Q6HR PRN 08/29/19 [History] Past Medical History HEENT History: Reports: Cataract, Impaired Vision, Other (See Below) Other HEENT History: wears reading glasses, "ear problem-affecting balance and has noise in my ears", vestibular migraine Cardiovascular History: Reports: Hypertension Other Cardiovascular History: History of PVC's Respiratory History: Reports: Bronchitis, Recurrent Gastrointestinal History: Reports: Chronic Diarrhea, Diverticulosis, GERD, Hiatal Hernia, Irritable Bowel Syndrome Other Gastrointestinal History: Barretts syndrome 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 left arm. patella Neurological History: Reports: Concussion, Migraines, Vertigo Psychiatric History: Reports: Anxiety Endocrine/Metabolic History: Reports: Hypothyroidism, Other (See Below) Other Endocrine/Metabolic History: nodule on thyroid being removed 07/16/17 Oncologic (Cancer) History: Reports: Thyroid Dermatologic History: Reports: Other (See Below) Other Dermatologic History: rash in summer - Infectious Disease History Infectious Disease History: Reports: Chicken Pox, Measles, Mumps - Past Surgical History Head Surgeries/Procedures: Reports: None HEENT Surgical History: Reports: None Cardiovascular Surgical History: Reports: None Respiratory Surgical History: Reports: None GI Surgical History: Reports: Appendectomy, Cholecystectomy, Colonoscopy, EGD, Lysis of Adhesions, Carmen Fundoplication Endocrine Surgical History: Reports: Thyroidectomy Neurological Surgical History: Reports: Scoliosis Musculoskeletal Surgical History: Reports: Hip Replacement Dermatological Surgical History: Reports: None Social & Family History - Family History Family Medical History: Noncontributory - Tobacco Use Smoking Status *Q: Current Every Day Smoker Years of Tobacco use: 50 Packs/Tins Daily: 1 - Caffeine Use Caffeine Use: Reports: None Other Caffeine Use: 8 cups per day - Recreational Drug Use Recreational Drug Use: No ED ROS GENERAL - Review of Systems Review Of Systems: See Below Constitutional: Reports: Decreased Appetite HEENT: Reports: No Symptoms Respiratory: Reports: No Symptoms Cardiovascular: Reports: No Symptoms Endocrine: Reports: No Symptoms GI/Abdominal: Reports: Abdominal Pain : Reports: No Symptoms Musculoskeletal: Reports: No Symptoms Skin: Reports: No Symptoms Neurological: Reports: No Symptoms Psychiatric: Reports: No Symptoms Hematologic/Lymphatic: Reports: No Symptoms Immunologic: Reports: No Symptoms ED EXAM, GI/ABD - Physical Exam Exam: See Below Exam Limited By: No Limitations General Appearance: Alert, WD/WN, No Apparent Distress Eyes: Bilateral: Normal Appearance Ears: Normal External Exam Nose: Normal Inspection Throat/Mouth: Normal Inspection Head: Atraumatic, Normocephalic Neck: Normal Inspection, Supple, Non-Tender, Full Range of Motion Respiratory/Chest: No Respiratory Distress, Lungs Clear, Normal Breath Sounds, No Accessory Muscle Use Cardiovascular: Regular Rate, Rhythm, No Murmur GI/Abdominal Exam: Normal Bowel Sounds, Soft, Tender (mid to right upper abdomen.) (Female) Exam: Deferred Rectal (Female) Exam: Deferred Back Exam: Normal Inspection, Full Range of Motion Extremities: Normal Inspection, Normal Range of Motion, Non-Tender, No Pedal Edema, Normal Capillary Refill Neurological: No Motor/Sensory Deficits Psychiatric: Normal Affect, Normal Mood Skin Exam: Warm, Dry, Intact, Normal Color, No Rash Lymphatic: No Adenopathy Course - Vital Signs Last Recorded V/S: Last Vital Signs Temp 35.8 C 09/09/19 19:58 Pulse 65 09/09/19 20:34 Resp 16 09/09/19 19:58 BP 141/84 H 09/09/19 20:34 Pulse Ox 97 09/09/19 20:34 - Orders/Labs/Meds Labs: Laboratory Tests 09/09/19 Range/Units 20:06 Urine Color Yellow (YELLOW) Urine Appearance Clear (CLEAR) Urine pH 7.0 (5.0-8.0) Ur Specific [place] 1.015 (1.008-1.030) Urine Protein Negative (NEGATIVE) mg/dL Urine Glucose (UA) Negative (NEGATIVE) mg/dL Urine Ketones Negative (NEGATIVE) mg/dL Urine Occult Blood Negative (NEGATIVE) Urine Nitrite Negative (NEGATIVE) Urine Bilirubin Negative (NEGATIVE) Urine Urobilinogen 0.2 (0.2-1.0) EU/dL Ur Leukocyte Esterase Negative (NEGATIVE) Urine RBC 0-5 (0-5) Urine WBC 0-5 (0-5) Ur Epithelial Cells Rare Amorphous Sediment Not seen Urine Bacteria Not seen Urine Mucus Not seen Meds: Medications Discontinued Medications Generic Name Dose Route Start Last Admin Trade Name Freq PRN Reason Stop Dose Admin Hydroxyzine HCl 25 mg 09/09/19 20:42 09/09/19 21:02 Atarax PO 09/09/19 20:43 25 mg ONETIME ONE Administration - Re-Assessments/Exams Free Text/Narrative Re-Assessment/Exam: 09/09/19 declines abdomen x rays urine without sx of infection will do trial of hydroxyzine. will follow up in Primary Care RTC or ER if not improved or symptoms worsen Departure - Departure Time of Disposition: 20:57 Disposition: Home, Self-Care 01 Condition: Good Clinical Impression: Intestinal cramps - Discharge Information *PRESCRIPTION DRUG MONITORING PROGRAM REVIEWED*: Not Applicable *COPY OF PRESCRIPTION DRUG MONITORING REPORT IN PATIENT SHIRLENE: Not Applicable Instructions: Abdominal Pain, Adult, [id number] Referrals: Srinivas Peterson MD [Primary Care Provider] - Forms: ED Department Discharge Care Plan Goals: Intestinal cramps -trial of Hydroxyzine 25 mg one in morning and later afternoon as needed for discomfort -may continue all other medications -recheck with your Doctor in the next 1 to 2 weeks Return to ER if has increase pain, fever, chills, nausea, vomiting or not improved Sepsis Event Note - Evaluation Sepsis Screening Result: No Definite Risk - Focused Exam Vital Signs: Vital Signs Temp Pulse Resp BP Pulse Ox 09/09/19 20:34 65 141/84 H 97 09/09/19 19:58 35.8 C 66 16 141/67 H 98 09/09/19 19:35 35.8 C 66 16 141/67 H 98 Date Exam was Performed: 09/09/19 Time Exam was Performed: 22:35 - Problem List & Annotations (1) Intestinal cramps SNOMED Code(s): 986204133, 163598166 Code(s): R10.9 - UNSPECIFIED ABDOMINAL PAIN Status: Acute Priority: High - Problem List Review Problem List Initiated/Reviewed/Updated: Yes - Assessment/Plan Plan: Intestinal cramps -trial of Hydroxyzine 25 mg one in morning and later afternoon as needed for discomfort -may continue all other medications -recheck with your Doctor in the next 1 to 2 weeks Return to ER if has increase pain, fever, chills, nausea, vomiting or not improved
== END 2019-09-09 21:08 | disposition home or self-care (01) ==
LOC: JP.ED 18:52
DX: R10.11 Right upper quadrant pain (principal); I10 Essential (primary) hypertension; E03.9 Hypothyroidism, unspecified; K21.9 Gastro-esophageal reflux disease without esophagitis; F17.210 Nicotine dependence, cigarettes, uncomplicated; Z91.030 Bee allergy status; Z79.899 Other long term (current) drug therapy; Z79.890 Hormone replacement therapy
CPT/HCPCS: 81001; 99284; A9270; 99283

== ENCOUNTER 2019-09-17 13:59 | Emergency (ER) | payer MEDICARE, BC ==
[2019-09-17] MEDS ORDERED: Aspirin 81 MG Tab.Chew PO ONE (14:10)
--- NOTE | 2019-09-17 14:19 | EDM.PDOC ---
ED HPI GENERAL MEDICAL PROBLEM - General Chief Complaint: Chest Pain Stated Complaint: MEDICAL VIA TRI Time Seen by Provider: 09/17/19 14:05 Source of Information: Reports: Patient, EMS, Old Records History Limitations: Reports: No Limitations - History of Present Illness INITIAL COMMENTS - FREE TEXT/NARRATIVE: 68 yo female arrives via EMS for chest and jaw pain. Has no hx of CAD. Sx's began after breakfast and at rest. No SOB, was anxious and ? mildly sweaty with this. Took Gaviscon, has a hx of similar sx's that was effectively tx'd with this med, today pain didn't go away when she thought it should so she called 911. Sx's were resolved before arrival of EMS to her home. Onset: Today Onset Date: 09/17/19 Onset Time: 09:30 Duration: Hour(s):, Resolved Prior to Arrival Location: Reports: Face (jaw), Chest Quality: Reports: Ache (jaw), Pressure (chest) Severity: Mild Improves with: Reports: Other (time vs Gaviscon) Worsens with: Reports: Other (unknown) Context: Reports: Other (see HPI) Associated Symptoms: Reports: Chest Pain (tightness), Diaphoresis (mild, resolved before arrival), Shortness of Breath (mild at the time, patient thinks anxiety related.). 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: Other (see below) (Gaviscon) back Pain Score (Numeric/FACES): 3 - Related Data Allergies Allergy/AdvReac Type Severity Reaction Status Date / Time bee venom protein (honey bee) Allergy Syncope Verified 09/17/19 14:34 Home Meds: Home Meds hydroCHLOROthiazide [Hydrochlorothiazide] 25 mg PO DAILY 05/30/13 [History] Lansoprazole [Prevacid] 30 mg PO BID 11/06/13 [History] Albuterol Sulfate [Proair Hfa] 2 puff INH Q4HR PRN 11/01/16 [History] EPINEPHrine [Epipen 2-Jed] 0.3 ml IM ASDIRECTED PRN 11/01/16 [History] Multivitamin with Minerals [Multiple Vitamin] 1 tab PO DAILY 03/08/17 [History] Magnesium Oxide [Magnesium] 400 mg PO DAILY 07/09/17 [History] Fluticasone Propionate [Flonase] 2 spray JOSEP DAILY 02/28/18 [History] Levothyroxine [Synthroid] 100 mcg PO DAILY 02/28/18 [History] Potassium Chloride 20 meq PO BID 09/09/18 [History] Calcium Carbonate/Vitamin D3 [Calcium 500 + Vit D Caplet] 1 cap PO DAILY [History] Incruse 1 puff INH DAILY 03/01/19 [History] Bismuth Subsalicylate [Pepto Bismol] 30 ml PO DAILY PRN 05/28/19 [History] Meclizine [Antivert] 25 mg PO DAILY PRN 05/28/19 [History] Celecoxib [CeleBREX] 200 mg PO DAILY 08/26/19 [History] L.acidoph,Paracasei, B.lactis [Probiotic] 2 tab PO DAILY 08/26/19 [History] Dicyclomine [Bentyl] 10 mg PO Q6HR PRN 08/29/19 [History] Past Medical History HEENT History: Reports: Cataract, Impaired Vision, Other (See Below) Other HEENT History: wears reading glasses, "ear problem-affecting balance and has noise in my ears", vestibular migraine Cardiovascular History: Reports: Hypertension Other Cardiovascular History: History of PVC's Respiratory History: Reports: Bronchitis, Recurrent Gastrointestinal History: Reports: Chronic Diarrhea, Diverticulosis, GERD, Hiatal Hernia, Irritable Bowel Syndrome 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 left arm. patella Neurological History: Reports: Concussion, Migraines, Vertigo Psychiatric History: Reports: Anxiety Endocrine/Metabolic History: Reports: Hypothyroidism, Other (See Below) Other Endocrine/Metabolic History: nodule on thyroid being removed 07/16/17 Oncologic (Cancer) History: Reports: Thyroid Dermatologic History: Reports: Other (See Below) Other Dermatologic History: rash in summer - Infectious Disease History Infectious Disease History: Reports: Chicken Pox, Measles, Mumps - Past Surgical History Head Surgeries/Procedures: Reports: None HEENT Surgical History: Reports: None Cardiovascular Surgical History: Reports: None Respiratory Surgical History: Reports: None GI Surgical History: Reports: Appendectomy, Cholecystectomy, Colonoscopy, EGD, Lysis of Adhesions, Carmen Fundoplication Endocrine Surgical History: Reports: Thyroidectomy Neurological Surgical History: Reports: Scoliosis Musculoskeletal Surgical History: Reports: Hip Replacement Dermatological Surgical History: Reports: None Social & Family History - Family History Family Medical History: Noncontributory - Caffeine Use Caffeine Use: Reports: None Other Caffeine Use: 8 cups per day ED ROS GENERAL - Review of Systems Review Of Systems: See Below Constitutional: Reports: Diaphoresis (at one point at home.). Denies: Fever HEENT: Reports: No Symptoms Respiratory: Reports: Shortness of Breath (mild at one point at home, not now). Denies: Wheezing, Pleuritic Chest Pain, Cough, Sputum, Hemoptysis Cardiovascular: Reports: Chest Pain (tightness, mild). Denies: Lightheadedness , Orthopnea, Syncope Endocrine: Reports: No Symptoms GI/Abdominal: Reports: No Symptoms. Denies: Nausea, Vomiting : Reports: No Symptoms Musculoskeletal: Reports: No Symptoms Skin: Reports: Diaphoresis (at one point at home, resolved). Denies: Bruising, Rash ED EXAM, GENERAL - Physical Exam Exam: See Below Exam Limited By: No Limitations General Appearance: Alert, WD/WN, No Apparent Distress Eye Exam: Bilateral Eye: Normal Inspection, PERRL Ears: Normal External Exam, Normal Canal, Hearing Grossly Normal, Normal TMs Ear Exam: Bilateral Ear: Auricle Normal, Canal Normal Nose: Normal Inspection, No Blood Throat/Mouth: Normal Inspection, Normal Lips, Normal Oropharynx, Normal Voice, No Airway Compromise Head: Atraumatic, Normocephalic Neck: Normal Inspection, Supple, Non-Tender Respiratory/Chest: No Respiratory Distress, Lungs Clear, Normal Breath Sounds Cardiovascular: Regular Rate, Rhythm, No Edema GI/Abdominal: Normal Bowel Sounds, Soft, Non-Tender, No Distention Back Exam: Normal Inspection. No: CVA Tenderness (R), CVA Tenderness (L) Extremities: Normal Inspection, Normal Range of Motion, Non-Tender, No Pedal Edema Neurological: Alert, Oriented, CN II-XII Intact, Normal Cognition, No Motor/ Sensory Deficits Psychiatric: Normal Affect, Normal Mood Skin Exam: Warm, Dry, Intact, Normal Color, No Rash Lymphatic: No Adenopathy EKG INTERPRETATION EKG Date: 09/17/19 Time: 13:10 Rhythm: NSR Rate (Beats/Min): 95 [place]: Normal P-Wave: Present QRS: Normal ST-T: Normal QT: Normal EKG Interpretation Comments: borderline 1st degree AV block Course - Vital Signs Last Recorded V/S: Last Vital Signs Temp 36.2 C 09/17/19 14:55 Pulse 77 09/17/19 15:29 Resp 12 09/17/19 15:29 BP 137/79 09/17/19 15:29 Pulse Ox 97 09/17/19 15:29 - Orders/Labs/Meds Orders: Active Orders 24 hr Category Date Time Status Cardiac Monitoring [RC] .As Directed Care 09/17/19 14:09 Active Labs: Laboratory Tests 09/17/19 09/17/19 09/17/19 Range/Units 14:13 14:13 14:13 WBC 10.3 (4.5-11.0) K/uL RBC 4.89 (3.30-5.50) M/uL Hgb 14.9 (12.0-15.0) g/dL Hct 45.6 (36.0-48.0) % MCV 93 (80-98) fL MCH 31 (27-31) pg MCHC 33 (32-36) % Plt Count 364 (150-400) K/uL Sodium 145 (140-148) mmol/L Potassium 3.0 L (3.6-5.2) mmol/L Chloride 105 (100-108) mmol/L Carbon Dioxide 27 (21-32) mmol/L Anion Gap 16.0 H (5.0-14.0) mmol/L BUN 9 (7-18) mg/dL Creatinine 0.8 (0.6-1.0) mg/dL Est Cr Clr Drug Dosing 51.75 mL/min Estimated GFR (MDRD) > 60 (>60) Glucose 86 (74-106) mg/dL Calcium 8.5 (8.5-10.1) mg/dL Magnesium (1.8-2.4) mg/dL Troponin I < 0.017 (0.000-0.056) ng/mL 09/17/19 Range/Units 15:02 WBC (4.5-11.0) K/uL RBC (3.30-5.50) M/uL Hgb (12.0-15.0) g/dL Hct (36.0-48.0) % MCV (80-98) fL MCH (27-31) pg MCHC (32-36) % Plt Count (150-400) K/uL Sodium (140-148) mmol/L Potassium (3.6-5.2) mmol/L Chloride (100-108) mmol/L Carbon Dioxide (21-32) mmol/L Anion Gap (5.0-14.0) mmol/L BUN (7-18) mg/dL Creatinine (0.6-1.0) mg/dL Est Cr Clr Drug Dosing mL/min Estimated GFR (MDRD) (>60) Glucose (74-106) mg/dL Calcium (8.5-10.1) mg/dL Magnesium 1.7 L (1.8-2.4) mg/dL Troponin I (0.000-0.056) ng/mL Meds: Medications Discontinued Medications Generic Name Dose Route Start Last Admin Trade Name Freq PRN Reason Stop Dose Admin Aspirin 324 mg 09/17/19 14:10 09/17/19 14:33 Aspirin PO 09/17/19 14:11 324 mg ONETIME ONE Administration Magnesium Oxide 800 mg 09/17/19 15:45 09/17/19 15:54 Magnesium Oxide PO 09/17/19 15:46 800 mg ONETIME ONE Administration Potassium Chloride 40 meq 09/17/19 15:02 09/17/19 15:42 Potassium Chloride PO 09/17/19 15:03 40 meq ONETIME ONE Administration Departure - Departure Time of Disposition: 16:05 Disposition: Home, Self-Care 01 Condition: Fair Clinical Impression: Hypokalemia, Hypomagnesemia, Nonspecific chest pain Instructions: Nonspecific Chest Pain, Potassium Content of Foods Referrals: PCP,None [Primary Care Provider] - Forms: ED Department Discharge Additional Instructions: Take a baby aspirin daily for heart attack prevention, take with food. Increase your magnesium to twice daily for 4 days. Double up in your potassium for 4 days. Switch from hydrochlorothiazide to Dyazide one every morning. Recheck with your doctor next week for an electrolyte recheck. Return here if worse. Sepsis Event Note - Focused Exam Vital Signs: Vital Signs Temp Pulse Resp BP Pulse Ox 09/17/19 15:29 77 12 137/79 97 09/17/19 14:55 36.2 C 88 15 142/78 H 98 09/17/19 14:05 88 15 142/78 H 98 Date Exam was Performed: 09/17/19 Time Exam was Performed: 15:57 - My Orders Last 24 Hours: My Active Orders 09/17/19 14:09 Cardiac Monitoring [RC] .As Directed - Assessment/Plan Last 24 Hours: My Active Orders 09/17/19 14:09 Cardiac Monitoring [RC] .As Directed
[2019-09-17] MEDS ORDERED: Potassium Chloride 10 MEQ Cap.ER PO ONE (15:02)
[2019-09-17 15:30] VITALS: BP 137/79; PULSE 77
[2019-09-17] MEDS ORDERED: Magnesium Oxide 400 MG Tab PO ONE (15:45)
== END 2019-09-17 16:17 | disposition home or self-care (01) ==
LOC: JP.ED 13:59
DX: E87.6 Hypokalemia (principal); R07.89 Other chest pain; E83.42 Hypomagnesemia; I10 Essential (primary) hypertension; K21.9 Gastro-esophageal reflux disease without esophagitis; E03.9 Hypothyroidism, unspecified; R19.7 Diarrhea, unspecified; Z91.030 Bee allergy status; Z79.899 Other long term (current) drug therapy; Z79.890 Hormone replacement therapy
CPT/HCPCS: 36415; 80048; 83735; 84484; 85027; 99285; A9270; 99284

== ENCOUNTER 2021-05-04 17:08 | Emergency (ER) | payer MEDICARE, BC ==
--- NOTE | 2021-05-04 17:51 | EDM.PDOC ---
ED HPI GENERAL MEDICAL PROBLEM - General Chief Complaint: General Stated Complaint: REFERRED FOR LOW BP Time Seen by Provider: 05/04/21 17:35 Source of Information: Reports: Patient, Old Records, RN History Limitations: Reports: No Limitations - History of Present Illness INITIAL COMMENTS - FREE TEXT/NARRATIVE: 70 yo female presents after having a low BP reading around mid day today in the 80's. She said she felt no differently then than she usually does. No recent fever, vomiting, bleeding, or worsening of her chronic diarrhea. Later in the afternoon her BP was normal, but she came to the ER anyway. Says its not unusual for her to have mild dizziness when she first stands. Onset: Today, Unknown/Unsure Duration: Minutes: Location: Reports: Generalized Quality: Reports: Other (no pain) Severity: Mild Improves with: Reports: Other (? 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 (see below) (none) - Related Data Allergies Allergy/AdvReac Type Severity Reaction Status Date / Time bee venom protein (honey bee) Allergy Syncope Verified 05/04/21 17:24 Home Meds: Home Meds Lansoprazole [Prevacid] 30 mg PO BID 11/06/13 [History] Albuterol Sulfate [Proair Hfa] 2 puff INH Q4HR PRN 11/01/16 [History] EPINEPHrine [Epipen 2-Jed] 0.3 ml IM ASDIRECTED PRN 11/01/16 [History] Multivitamin with Minerals [Multiple Vitamin] 1 tab PO BID 03/08/17 [History] Magnesium Oxide [Magnesium] 400 mg PO DAILY 07/09/17 [History] Fluticasone Propionate [Flonase] 2 spray JOSEP DAILY 02/28/18 [History] Levothyroxine [Synthroid] 88 mcg PO MOTUWETHFRSA 02/28/18 [History] Potassium Chloride 20 meq PO BID 09/09/18 [History] Calcium Carbonate/Vitamin D3 [Calcium 500-Vit D3 125 Caplet] 1 cap PO DAILY 10/03/18 [History] Bismuth Subsalicylate [Pepto Bismol] 30 ml PO DAILY PRN 05/28/19 [History] Meclizine [Antivert] 25 mg PO DAILY PRN 05/28/19 [History] Dicyclomine [Bentyl] 10 mg PO TID PRN 08/29/19 [History] HCTZ/Triamterene [Dyazide 25-37.5 MG] 1 cap PO DAILY #30 cap 09/17/19 [Rx] Verapamil HCl [Verapamil Sr] 180 mg PO DAILY 04/13/20 [History] Aspirin [Ecotrin EC] 81 mg PO DAILY 01/19/21 [History] Citalopram [Citalopram HBr] 5 mg PO DAILY 01/19/21 [History] Famotidine 20 mg PO DAILY 01/19/21 [History] Glycerin/Propylene Glycol [Artificial Tears Drops] 1 drop EYEBOTH BID PRN 01/19/21 [History] Levothyroxine [Synthroid] 50 mcg PO GREGG 01/19/21 [History] Simethicone [Gas Relief] 125 mg PO DAILY PRN 01/19/21 [History] Triamcinolone Acetonide [Triamcinolone Acetonide 0.1% Crm] 1 applic TOP BID 01/19/21 [History] polyethylene glycoL 3350 [MiraLAX] 17 gm PO DAILY 01/19/21 [History] Umeclidinium Brm/Vilanterol Tr [Anoro Ellipta 62.5-25 MCG] 1 puff IH DAILY 04/18/21 [History] Zoledronic Acid 4 mg IV ASDIRECTED 04/18/21 [History] Past Medical History HEENT History: Reports: Cataract, Impaired Vision, Other (See Below) Other HEENT History: wears reading glasses, "ear problem-affecting balance and has noise in my ears", vestibular migraine Cardiovascular History: Reports: Hypertension Other Cardiovascular History: History of PVC's Respiratory History: Reports: Bronchitis, Recurrent Gastrointestinal History: Reports: Chronic Diarrhea, Diverticulosis, GERD, Hiatal Hernia, Irritable Bowel Syndrome Other Gastrointestinal History: Barretts syndrome 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 left arm. patella Neurological History: Reports: Concussion, Migraines, Vertigo Psychiatric History: Reports: Anxiety Endocrine/Metabolic History: Reports: Hypothyroidism, Other (See Below) Other Endocrine/Metabolic History: nodule on thyroid being removed 07/16/17 Oncologic (Cancer) History: Reports: Thyroid Dermatologic History: Reports: Other (See Below) Other Dermatologic History: rash in summer - Infectious Disease History Infectious Disease History: Reports: Chicken Pox, Measles, Mumps - Past Surgical History Head Surgeries/Procedures: Reports: None HEENT Surgical History: Reports: None Other HEENT Surgeries/Procedures: wisdom teeth Cardiovascular Surgical History: Reports: None Respiratory Surgical History: Reports: None GI Surgical History: Reports: Appendectomy, Cholecystectomy, Colonoscopy, EGD, Lysis of Adhesions, Carmen Fundoplication Other GI Surgeries/Procedures: fundal carmen appication Endocrine Surgical History: Reports: Thyroidectomy Neurological Surgical History: Reports: Scoliosis Musculoskeletal Surgical History: Reports: Hip Replacement Other Musculoskeletal Surgeries/Procedures:: right Oncologic Surgical History: Reports: None Dermatological Surgical History: Reports: None Social & Family History - Family History Family Medical History: No Pertinent Family History - Tobacco Use Tobacco Use Status *Q: Current Every Day Tobacco User Years of Tobacco use: 50 Packs/Tins Daily: 1 - Caffeine Use Caffeine Use: Reports: None Other Caffeine Use: 8 cups per day - Recreational Drug Use Recreational Drug Use: No ED ROS GENERAL - Review of Systems Review Of Systems: See Below Constitutional: Reports: No Symptoms HEENT: Reports: No Symptoms Respiratory: Reports: No Symptoms Cardiovascular: Reports: Lightheadedness (at times, not now) GI/Abdominal: Reports: No Symptoms : Reports: No Symptoms Musculoskeletal: Reports: No Symptoms Skin: Reports: No Symptoms Neurological: Reports: No Symptoms ED EXAM, GENERAL - Physical Exam Exam: See Below Exam Limited By: No Limitations General Appearance: Alert, WD/WN, No Apparent Distress Eye Exam: Bilateral Eye: Normal Inspection Ears: Normal External Exam, Normal Canal, Hearing Grossly Normal Ear Exam: Bilateral Ear: Auricle Normal, Canal Normal Nose: Normal Inspection, No Blood Throat/Mouth: Normal Inspection, Normal Lips, Normal Voice, No Airway Compromise Head: Atraumatic, Normocephalic Neck: Normal Inspection Respiratory/Chest: No Respiratory Distress, Lungs Clear, Normal Breath Sounds, No Accessory Muscle Use Cardiovascular: Regular Rate, Rhythm, No Edema GI/Abdominal: Soft, Non-Tender Extremities: Normal Inspection Neurological: Alert, Oriented, CN II-XII Intact, Normal Cognition, No Motor/Sensory Deficits Psychiatric: Normal Affect, Normal Mood Skin Exam: Warm, Dry, Intact, Normal Color, No Rash Course - Vital Signs Last Recorded V/S: Last Vital Signs Temp 36.9 C 05/04/21 17:28 Pulse 74 05/04/21 17:28 Resp 16 05/04/21 17:28 BP 133/76 05/04/21 17:28 Pulse Ox 97 05/04/21 17:28 Orthostatic Blood Pressure [ 133/71 Standing] Orthostatic Blood Pressure [ 124/72 Sitting] Orthostatic Blood Pressure [ 110/59 Supine] - Orders/Labs/Meds Orders: Active Orders 24 hr Category Date Time Status Orthostatic Vital Signs [RC] ASDIRECTED Care 05/04/21 17:45 Active Labs: Laboratory Tests 05/04/21 05/04/21 Range/Units 17:33 17:34 Sodium 141 (140-148) mmol/L Potassium 4.3 (3.6-5.2) mmol/L Chloride 104 (100-108) mmol/L Carbon Dioxide 24 (21-32) mmol/L Anion Gap 12.7 (5.0-14.0) mmol/L BUN 18 D (7-18) mg/dL Creatinine 1.2 H (0.6-1.0) mg/dL Est Cr Clr Drug Dosing 33.52 mL/min Estimated GFR (MDRD) 44 L (>60) Glucose 120 H (74-106) mg/dL Calcium 8.6 (8.5-10.1) mg/dL Magnesium 2.0 (1.8-2.4) mg/dL Departure - Departure Time of Disposition: 17:55 Disposition: Home, Self-Care 01 Condition: Good Clinical Impression: Encounter for examination of blood pressure without abnormal findings - Discharge Information *PRESCRIPTION DRUG MONITORING PROGRAM REVIEWED*: Not Applicable *COPY OF PRESCRIPTION DRUG MONITORING REPORT IN PATIENT SHIRLENE: Not Applicable Referrals: Kenya Haque PA-C [Primary Care Provider] - Forms: ED Department Discharge Additional Instructions: Continue your present meds. If you feel light-headed when you stand wait before you take off walking. Drink enough so your urine is light yellow. Recheck as n eeded. Sepsis Event Note (ED) - Focused Exam Vital Signs: Vital Signs Temp Pulse Resp BP Pulse Ox 05/04/21 17:28 36.9 C 74 16 133/76 97 05/04/21 17:22 36.9 C 74 16 133/76 97 - My Orders Last 24 Hours: My Active Orders 05/04/21 17:45 Orthostatic Vital Signs [RC] ASDIRECTED - Assessment/Plan Last 24 Hours: My Active Orders 05/04/21 17:45 Orthostatic Vital Signs [RC] ASDIRECTED
[2021-05-04 17:52] VITALS: BP 133/76; PULSE 74
== END 2021-05-04 18:11 | disposition home or self-care (01) ==
LOC: JP.ED 17:08
DX: I10 Essential (primary) hypertension (principal); E03.9 Hypothyroidism, unspecified; K21.9 Gastro-esophageal reflux disease without esophagitis; Z91.030 Bee allergy status; Z79.82 Long term (current) use of aspirin; Z79.899 Other long term (current) drug therapy; Z72.0 Tobacco use
CPT/HCPCS: 36415; 80048; 83735; 99284

== ENCOUNTER 2021-08-06 13:58 | Emergency (ER) | payer MEDICARE, BC ==
[2021-08-06 15:05] LABS: CORONAVIRUS COVID-19 NAA NEGATIVE (NEGATIVE)
--- NOTE | 2021-08-06 15:05 | EDM.PDOC ---
ED HPI GENERAL MEDICAL PROBLEM - General Chief Complaint: Respiratory Problem Stated Complaint: CHEST PAIN WITH COUGH Time Seen by Provider: 08/06/21 14:45 Source of Information: Reports: Patient, Old Records History Limitations: Reports: No Limitations - History of Present Illness INITIAL COMMENTS - FREE TEXT/NARRATIVE: 70 yo female with known mild COPD presents with intermittent cough associated with mild CP for about 3 days of abrupt onset. No fever. Does have runny nose. Has used her inhaler without much benefit. Is mildly SOB. No calf pain or LE edema. No cardiac hx. 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 (see below) (albuterol without benefit, last yesterday) Chest Pain Score (Numeric/FACES): 0 - Related Data Allergies Allergy/AdvReac Type Severity Reaction Status Date / Time bee venom protein (honey bee) Allergy Syncope Verified 08/06/21 14:38 Home Meds: Home Meds Lansoprazole [Prevacid] 30 mg PO BID 11/06/13 [History] Albuterol Sulfate [Proair Hfa] 2 puff INH Q4HR PRN 11/01/16 [History] EPINEPHrine [Epipen 2-Jed] 0.3 ml IM ASDIRECTED PRN 11/01/16 [History] Multivitamin with Minerals [Multiple Vitamin] 1 tab PO DAILY 03/08/17 [History] Magnesium Oxide [Magnesium] 400 mg PO DAILY 07/09/17 [History] Levothyroxine [Synthroid] 88 mcg PO MOTUWETHFRSA 02/28/18 [History] Potassium Chloride 20 meq PO DAILY 09/09/18 [History] Calcium Carbonate/Vitamin D3 [Calcium 500-Vit D3 125 Caplet] 1 cap PO BID 10/03/18 [History] Bismuth Subsalicylate [Pepto Bismol] 30 ml PO DAILY PRN 05/28/19 [History] Meclizine [Antivert] 25 mg PO DAILY PRN 05/28/19 [History] Dicyclomine [Bentyl] 10 mg PO TID PRN 08/29/19 [History] HCTZ/Triamterene [Dyazide 25-37.5 MG] 1 cap PO DAILY #30 cap 09/17/19 [Rx] Verapamil HCl [Verapamil Sr] 180 mg PO DAILY 04/13/20 [History] Aspirin [Ecotrin EC] 81 mg PO DAILY 01/19/21 [History] Citalopram [Citalopram HBr] 5 mg PO DAILY 01/19/21 [History] Famotidine 20 mg PO DAILY PRN 01/19/21 [History] Glycerin/Propylene Glycol [Artificial Tears Drops] 1 drop EYEBOTH DAILY 01/19/21 [History] Levothyroxine [Synthroid] 50 mcg PO GREGG 01/19/21 [History] Simethicone [Gas Relief] 125 mg PO DAILY PRN 01/19/21 [History] Triamcinolone Acetonide [Triamcinolone Acetonide 0.1% Crm] 1 applic TOP BID PRN 01/19/21 [History] polyethylene glycoL 3350 [MiraLAX] 17 gm PO DAILY 01/19/21 [History] Umeclidinium Brm/Vilanterol Tr [Anoro Ellipta 62.5-25 MCG] 1 puff IH DAILY 04/18/21 [History] Zoledronic Acid 4 mg IV ASDIRECTED 04/18/21 [History] miSOPROStoL [Cytotec] 100 mg PO BID 08/06/21 [History] Past Medical History HEENT History: Reports: Cataract, Impaired Vision, Other (See Below) Other HEENT History: wears reading glasses, "ear problem-affecting balance and has noise in my ears", vestibular migraine Cardiovascular History: Reports: Hypertension Other Cardiovascular History: History of PVC's Respiratory History: Reports: Bronchitis, Recurrent Gastrointestinal History: Reports: Chronic Diarrhea, Diverticulosis, GERD, Hiatal Hernia, Irritable Bowel Syndrome Other Gastrointestinal History: Barretts syndrome 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 left arm. patella Neurological History: Reports: Concussion, Migraines, Vertigo Psychiatric History: Reports: Anxiety Endocrine/Metabolic History: Reports: Hypothyroidism, Other (See Below) Other Endocrine/Metabolic History: nodule on thyroid being removed 07/16/17 Oncologic (Cancer) History: Reports: Thyroid Dermatologic History: Reports: Other (See Below) Other Dermatologic History: rash in summer - Infectious Disease History Infectious Disease History: Reports: Chicken Pox, Measles, Mumps - Past Surgical History Head Surgeries/Procedures: Reports: None HEENT Surgical History: Reports: None Other HEENT Surgeries/Procedures: wisdom teeth Cardiovascular Surgical History: Reports: None Respiratory Surgical History: Reports: None GI Surgical History: Reports: Appendectomy, Cholecystectomy, Colonoscopy, EGD, Lysis of Adhesions, Carmen Fundoplication Other GI Surgeries/Procedures: fundal carmen appication Endocrine Surgical History: Reports: Thyroidectomy Neurological Surgical History: Reports: Scoliosis Musculoskeletal Surgical History: Reports: Hip Replacement Other Musculoskeletal Surgeries/Procedures:: right Oncologic Surgical History: Reports: None Dermatological Surgical History: Reports: None Social & Family History - Family History Family Medical History: No Pertinent Family History - Tobacco Use Tobacco Use Status *Q: Current Every Day Tobacco User Years of Tobacco use: 50 Packs/Tins Daily: 0.5 - Caffeine Use Caffeine Use: Reports: None Other Caffeine Use: 8 cups per day - Recreational Drug Use Recreational Drug Use: No ED ROS GENERAL - Review of Systems Review Of Systems: See Below Constitutional: Reports: No Symptoms HEENT: Reports: Rhinitis Respiratory: Reports: Shortness of Breath (mild), Cough. Denies: Wheezing, Pleuritic Chest Pain, Sputum, Hemoptysis Cardiovascular: Reports: Chest Pain (mainly with coughing) GI/Abdominal: Reports: No Symptoms : Reports: No Symptoms Musculoskeletal: Reports: No Symptoms Skin: Reports: No Symptoms Neurological: Reports: No Symptoms Psychiatric: Reports: No Symptoms ED EXAM, GENERAL - Physical Exam Exam: See Below Exam Limited By: No Limitations General Appearance: Alert, WD/WN, No Apparent Distress Eye Exam: Bilateral Eye: Normal Inspection Ears: Normal External Exam, Normal Canal, Hearing Grossly Normal, Normal TMs Ear Exam: Bilateral Ear: Auricle Normal, Canal Normal, TM normal Nose: Normal Inspection Throat/Mouth: Normal Inspection, Normal Lips, Normal Oropharynx, Normal Voice, No Airway Compromise Head: Atraumatic, Normocephalic Neck: Normal Inspection Respiratory/Chest: No Respiratory Distress, Lungs Clear, Decreased Breath Sounds (right side). No: Normal Breath Sounds Cardiovascular: Regular Rate, Rhythm, No Edema. No: Tachycardia Back Exam: Normal Inspection. No: CVA Tenderness (R), CVA Tenderness (L) Extremities: Normal Inspection, Normal Range of Motion, Non-Tender, No Pedal Edema Neurological: Alert, Oriented, CN II-XII Intact, Normal Cognition, No Motor/Sensory Deficits Psychiatric: Normal Affect, Normal Mood Skin Exam: Warm, Dry, Intact, Normal Color, No Rash Course - Vital Signs Last Recorded V/S: Last Vital Signs Temp 36.7 C 08/06/21 14:24 Pulse 70 08/06/21 15:38 Resp 16 08/06/21 15:38 BP 102/53 L 08/06/21 15:38 Pulse Ox 91 L 08/06/21 15:38 - Orders/Labs/Meds Orders: Active Orders 24 hr Category Date Time Status Chest 2V [CR] Stat Exams 08/06/21 14:59 Taken Isolation [COMM] Stat Oth 08/06/21 14:04 Ordered Labs: Laboratory Tests 08/06/21 08/06/21 08/06/21 Range/Units 14:26 15:15 15:15 D-Dimer, Quantitative 292.28 (0.0-500.0) ng/mL Troponin I High Sens 4.6 (<=60.3) pg/mL Influenza Type A RNA Negative (NEGATIVE) RSV RNA (INAAT) Negative (NEGATIVE) Influenza Type B RNA Negative (NEGATIVE) SARS-CoV-2 RNA (CHRISTOPHER) Negative (NEGATIVE) - Radiology Interpretation Free Text/Narrative:: CXR-neg Departure - Departure Time of Disposition: 16:10 Disposition: Home, Self-Care 01 Condition: Fair Clinical Impression: Bronchospasm - Discharge Information *PRESCRIPTION DRUG MONITORING PROGRAM REVIEWED*: Not Applicable *COPY OF PRESCRIPTION DRUG MONITORING REPORT IN PATIENT SHIRLENE: Not Applicable Instructions: Bronchospasm, Adult, [id number] Referrals: Kenya Haque PA-C [Primary Care Provider] - Forms: ED Department Discharge Additional Instructions: Take prednisone as directed with food. Use your inhaler regularly for a few days. Avoid smoke exposure. Recheck with your provider later this week. Sepsis Event Note (ED) - Focused Exam Vital Signs: Vital Signs Temp Pulse Resp BP Pulse Ox 08/06/21 15:38 70 16 102/53 L 91 L 08/06/21 14:44 72 15 126/61 90 L 08/06/21 14:24 36.7 C 89 16 131/63 92 L 08/06/21 14:15 36.7 C 89 16 131/63 92 L - My Orders Last 24 Hours: My Active Orders 08/06/21 14:04 Isolation [COMM] Stat 08/06/21 14:59 Chest 2V [CR] Stat - Assessment/Plan Last 24 Hours: My Active Orders 08/06/21 14:04 Isolation [COMM] Stat 08/06/21 14:59 Chest 2V [CR] Stat
[2021-08-06 15:39] VITALS: BP 102/53; PULSE 70
--- NOTE | 2021-08-07 09:36 | CR ---
CHEST: 2 view CLINICAL HISTORY:Cough and SOB COMPARISON:CT 03/31/2021 FINDINGS: Lungs are hyperaerated. There is blunting of both costophrenic angles which is felt to be chronic. The heart size, pulmonary vascularity and hilar structures are normal. No infiltrate effusion or pneumothorax is seen. There is structural scoliosis. There are atherosclerotic changes in the aorta. IMPRESSION: No acute cardiopulmonary process Emphysematous changes Chronic blunting of the costophrenic angles
== END 2021-08-06 16:22 | disposition home or self-care (01) ==
LOC: JP.ED 13:58
DX: J98.01 Acute bronchospasm (principal); I10 Essential (primary) hypertension; J44.9 Chronic obstructive pulmonary disease, unspecified; E03.9 Hypothyroidism, unspecified; F17.210 Nicotine dependence, cigarettes, uncomplicated; Z20.822 Contact with and (suspected) exposure to COVID-19; Z91.030 Bee allergy status; Z79.899 Other long term (current) drug therapy; Z79.82 Long term (current) use of aspirin; Z90.49 Acquired absence of other specified parts of digestive tract
CPT/HCPCS: 0241U; 36415; 71046; 84484; 85379; 99283

== ENCOUNTER 2021-09-28 07:25 | Day surgery (SDC) | payer MEDICARE, BC ==
[2021-09-28] MEDS ORDERED: Propofol 200 MG/20 ML SDV ONE (07:28)
[2021-09-28] MEDS ORDERED: fentaNYL 100 MCG/2 ML SDV ONE (07:28)
[2021-09-28] MEDS ORDERED: Midazolam 1 MG/ML 2 ML SDV ONE (07:28)
[2021-09-28] MEDS ORDERED: Dextrose 5%-Lactated Ringers 1,000 ML IV SCH (08:15)
[2021-09-28 08:17] LABS: CORONAVIRUS COVID-19 NAA NEGATIVE (NEGATIVE)
[2021-09-28 10:35] VITALS: BP 120/60; PULSE 59
== END 2021-09-28 11:05 | disposition home or self-care (01) ==
LOC: JP.SDS 07:25
PROVIDERS: ATTEND Surgery
DX: K22.70 Barrett's esophagus without dysplasia (principal); K20.90 Esophagitis, unspecified without bleeding; K29.70 Gastritis, unspecified, without bleeding; F17.200 Nicotine dependence, unspecified, uncomplicated; I10 Essential (primary) hypertension; K21.9 Gastro-esophageal reflux disease without esophagitis; Z01.812 Encounter for preprocedural laboratory examination; Z98.84 Bariatric surgery status; Z20.822 Contact with and (suspected) exposure to COVID-19
CPT/HCPCS: 0241U; 87081; 88305; J2250; J2704; J3010

== ENCOUNTER 2021-11-21 22:03 | Emergency (ER) | payer MEDICARE, BC ==
[2021-11-21] MEDS ORDERED: Sodium Chloride 0.9% 10 ML Syringe FLUSH PRN (22:07)
[2021-11-21 22:14] VITALS: BP 143/65; PULSE 70
[2021-11-21 22:48] LABS: TROPONIN I HIGH SENSITIVITY 4.8 pg/mL (<=60.3)
== END 2021-11-21 23:30 | disposition home or self-care (01) ==
LOC: JP.ED 22:03
DX: G45.9 Transient cerebral ischemic attack, unspecified (principal); R41.0 Disorientation, unspecified; R42 Dizziness and giddiness; I10 Essential (primary) hypertension; K21.9 Gastro-esophageal reflux disease without esophagitis; E03.9 Hypothyroidism, unspecified; H53.8 Other visual disturbances; Z91.030 Bee allergy status; Z79.82 Long term (current) use of aspirin; Z79.899 Other long term (current) drug therapy
CPT/HCPCS: 36415; 70450; 80053; 80307; 81001; 84484; 85025; 85610; 85730; 93005; 93010; 99283; 99285-25; J3490

== ENCOUNTER 2021-12-13 18:54 | Emergency (ER) | payer MEDICARE, BC ==
[2021-12-13 19:45] VITALS: BP 145/67; PULSE 65
== END 2021-12-13 22:09 | disposition home or self-care (01) ==
LOC: JP.ED 18:54
DX: R10.33 Periumbilical pain (principal); K58.9 Irritable bowel syndrome, unspecified; J44.9 Chronic obstructive pulmonary disease, unspecified; I10 Essential (primary) hypertension; M19.90 Unspecified osteoarthritis, unspecified site; E03.9 Hypothyroidism, unspecified; F17.210 Nicotine dependence, cigarettes, uncomplicated; Z90.49 Acquired absence of other specified parts of digestive tract; Z79.899 Other long term (current) drug therapy; Z79.82 Long term (current) use of aspirin; Z91.030 Bee allergy status; Z88.8 Allergy status to other drugs, medicaments and biological substances
CPT/HCPCS: 36415; 74176; 80053; 83605; 83690; 85025; 99282; 99284-25

== ENCOUNTER 2022-11-13 18:07 | Emergency (ER) | payer MEDICARE ==
[2022-11-13 18:48] VITALS: BP 152/71; PULSE 93
[2022-11-13] MEDS ORDERED: HYDROmorphone 1 MG/ML Syringe IM ONE (19:04)
[2022-11-13 19:37] LABS: ESTIMATED GFR 68 mL/min (>60)
== END 2022-11-13 20:45 | disposition home or self-care (01) ==
LOC: JP.ED 18:07
DX: K58.9 Irritable bowel syndrome, unspecified (principal); I10 Essential (primary) hypertension; E03.9 Hypothyroidism, unspecified; Z88.1 Allergy status to other antibiotic agents; Z91.030 Bee allergy status; Z88.8 Allergy status to other drugs, medicaments and biological substances; Z79.899 Other long term (current) drug therapy; Z79.82 Long term (current) use of aspirin; Z90.49 Acquired absence of other specified parts of digestive tract
CPT/HCPCS: 36415; 74176; 80053; 83690; 85025; 96372; 99284; J1170

== ENCOUNTER 2023-02-22 17:29 | Emergency (ER) | payer BC, MEDICARE ==
[2023-02-22 17:52] VITALS: BP 130/56; PULSE 81
[2023-02-22] MEDS ORDERED: Sodium Chloride 0.9% 1,000 ML IV SCH (18:30)
[2023-02-22 18:37] LABS: BASOPHILS ABSOLUTE AUTO 0.06 K/uL (0.00-0.10); BASOPHILS PERCENT AUTO 0.5 % (0.1-1.3); EOSINOPHILS ABSOLUTE AUTO 0.23 K/uL (0.00-0.40); EOSINOPHILS PERCENT AUTO 2.1 % (0.0-5.4); HEMATOCRIT 40.1 % (34.3-46.0); HEMOGLOBIN 13.5 g/dL (11.2-15.5); IMMATURE GRAN ABSOLUTE AUTO 0.03 K/uL (0.00-0.23); IMMATURE GRAN PERCENT AUTO 0.3 % (0.0-0.7); LYMPHOCYTES ABSOLUTE AUTO 1.74 K/uL (0.8-3.3); LYMPHOCYTES PERCENT AUTO 15.9 % (11.4-47.7); MEAN CORPUSCULAR HEMOGLOBIN 29.3 pg (31.6-35.5); MEAN CORPUSCULAR HGB CONC 33.7 g/dL (31.6-35.5); MEAN CORPUSCULAR VOLUME 87.2 fL (81.4-99.0); MONOCYTES ABSOLUTE AUTO 0.87 K/uL (0.20-0.90); NEUTROPHILS ABSOLUTE AUTO 8.01 K/uL (1.0-7.6); NEUTROPHILS PERCENT AUTO 73.2 % (40.0-78.1); PLATELET COUNT,PLT 433 K/uL (130-375); WHITE BLOOD CELL COUNT,WBC 10.9 K/uL (3.2-11.0)
[2023-02-22 18:57] LABS: A/G RATIO 1.2 (1.2-2.2); ALANINE AMINOTRANSFERASE,ALT 28 U/L (12-78); ALBUMIN 3.3 g/dL (3.4-5.0); ALKALINE PHOSPHATASE 58 U/L (46-116); ANION GAP 14.7 mmol/L (5.0-14.0); ASPARTATE AMNIOTRANSFERASE,AST 20 U/L (15-37); BILIRUBIN TOTAL 0.5 mg/dL (0.2-1.0); BLOOD UREA NITROGEN,BUN 12 mg/dL (7-18); CALCIUM 8.5 mg/dL (8.5-10.1); CARBON DIOXIDE,CO2 26 mmol/L (21-32); CHLORIDE,CL 100 mmol/L (100-108); CREATININE 0.9 mg/dL (0.6-1.0); EST CRCL DRUG DOSING (CG) 43.37 mL/min; ESTIMATED GFR 67 mL/min (>60); GLUCOSE RANDOM 99 mg/dL (74-106); POTASSIUM,K 3.7 mmol/L (3.6-5.2); PROTEIN TOTAL,TP 6.1 g/dL (6.4-8.2); SODIUM,NA 137 mmol/L (140-148)
[2023-02-22 19:44] LABS: APPEARANCE,URINE SLIGHTLY CLOUDY (CLEAR); BILIRUBIN,URINE NEGATIVE (NEGATIVE); COLOR,URINE YELLOW (YELLOW); GLUCOSE,URINE NEGATIVE (NEGATIVE); KETONES,URINE 15 mg/dL (NEGATIVE); LEUKOCYTE ESTERASE,URINE SMALL (NEGATIVE); NITRITE,URINE NEGATIVE (NEGATIVE); OCCULT BLOOD,URINE NEGATIVE (NEGATIVE); PH,URINE 7.5 (5.0-8.0); PROTEIN,URINE NEGATIVE (NEGATIVE); UROBILINOGEN,URINE 0.2 EU/dL (0.2-1.0)
[2023-02-22 19:51] LABS: AMORPHOUS SEDIMENT,URINE NOT SEEN; BACTERIA,URINE RARE; EPITHELIAL CELLS,URINE RARE; MUCUS,URINE RARE; RBC,URINE 0-5 (0-5); WBC,URINE 0-5 (0-5)
== END 2023-02-22 20:47 | disposition home or self-care (01) ==
LOC: JP.ED 17:29
DX: R10.30 Lower abdominal pain, unspecified (principal); R55 Syncope and collapse; I10 Essential (primary) hypertension; J44.9 Chronic obstructive pulmonary disease, unspecified; E03.9 Hypothyroidism, unspecified; Z72.0 Tobacco use; Z88.0 Allergy status to penicillin; Z91.030 Bee allergy status; Z88.1 Allergy status to other antibiotic agents; Z88.8 Allergy status to other drugs, medicaments and biological substances; Z79.899 Other long term (current) drug therapy
CPT/HCPCS: 36415; 80053; 81001; 84484; 85025; 86140; 93005; 93010; 96360; 99284; J7030

== ENCOUNTER 2023-08-09 16:47 | Emergency (ER) | payer MEDICARE ==
[2023-08-09 17:38] LABS: BASOPHILS ABSOLUTE AUTO 0.05 K/uL (0.00-0.10); BASOPHILS PERCENT AUTO 0.5 % (0.1-1.3); EOSINOPHILS ABSOLUTE AUTO 0.18 K/uL (0.00-0.40); EOSINOPHILS PERCENT AUTO 1.9 % (0.0-5.4); HEMATOCRIT 40.2 % (34.3-46.0); HEMOGLOBIN 13.5 g/dL (11.2-15.5); IMMATURE GRAN PERCENT AUTO 0.2 % (0.0-0.7); LYMPHOCYTES ABSOLUTE AUTO 1.26 K/uL (0.8-3.3); LYMPHOCYTES PERCENT AUTO 13.4 % (11.4-47.7); MEAN CORPUSCULAR HEMOGLOBIN 29.6 pg (31.6-35.5); MEAN CORPUSCULAR HGB CONC 33.6 g/dL (31.6-35.5); MEAN CORPUSCULAR VOLUME 88.2 fL (81.4-99.0); MONOCYTES ABSOLUTE AUTO 0.65 K/uL (0.20-0.90); MONOCYTES PERCENT AUTO 6.9 % (3.3-12.6); NEUTROPHILS ABSOLUTE AUTO 7.23 K/uL (1.0-7.6); NEUTROPHILS PERCENT AUTO 77.1 % (40.0-78.1); PLATELET COUNT,PLT 392 K/uL (130-375); RED BLOOD CELL COUNT 4.56 M/uL (3.77-5.24); WHITE BLOOD CELL COUNT,WBC 9.4 K/uL (3.2-11.0)
[2023-08-09 17:39] LABS: IMMATURE GRAN ABSOLUTE AUTO 0.02 K/uL (0.00-0.23)
[2023-08-09 18:02] LABS: CALCIUM 8.5 mg/dL (8.5-10.1); CREATININE 0.8 mg/dL (0.6-1.0); EST CRCL DRUG DOSING (CG) 48.8 mL/min
[2023-08-09 18:13] VITALS: BP 122/57; PULSE 72
== END 2023-08-09 18:20 | disposition home or self-care (01) ==
LOC: JP.ED 16:47
DX: K58.9 Irritable bowel syndrome, unspecified (principal); I10 Essential (primary) hypertension; J44.9 Chronic obstructive pulmonary disease, unspecified; E03.9 Hypothyroidism, unspecified; F17.210 Nicotine dependence, cigarettes, uncomplicated; Z79.82 Long term (current) use of aspirin; Z79.899 Other long term (current) drug therapy; Z90.49 Acquired absence of other specified parts of digestive tract; Z88.0 Allergy status to penicillin; Z88.1 Allergy status to other antibiotic agents; Z88.8 Allergy status to other drugs, medicaments and biological substances; Z91.030 Bee allergy status; Z88.5 Allergy status to narcotic agent
CPT/HCPCS: 36415; 80048; 84484; 85025; 99284

== ENCOUNTER 2023-08-28 08:42 | Day surgery (SDC) | payer MEDICARE ==
[2023-08-28] MEDS ORDERED: fentaNYL 100 MCG/2 ML SDV ONE (09:29)
[2023-08-28] MEDS ORDERED: Propofol 200 MG/20 ML SDV ONE (09:29)
[2023-08-28] MEDS ORDERED: Lactated Ringers 1,000 ML IV SCH (09:45)
[2023-08-28 11:11] VITALS: BP 134/67; PULSE 68
== END 2023-08-28 12:24 | disposition home or self-care (01) ==
LOC: JP.SDS 08:42
PROVIDERS: ATTEND Student in an Organized Health Care Education/Training Program
DX: D13.2 Benign neoplasm of duodenum (principal); K31.7 Polyp of stomach and duodenum; K22.70 Barrett's esophagus without dysplasia; I10 Essential (primary) hypertension; K21.9 Gastro-esophageal reflux disease without esophagitis; F32.A Depression, unspecified; E03.9 Hypothyroidism, unspecified
CPT/HCPCS: 43239; 88305; J2704; J3010; J7120

== ENCOUNTER 2023-11-06 14:16 | Emergency (ER) | payer MEDICARE ==
[2023-11-06 14:54] VITALS: BP 165/82; PULSE 94
== END 2023-11-06 14:58 | disposition left against medical advice (07) ==
LOC: JP.ED 14:16
DX: Z53.21 Procedure and treatment not carried out due to patient leaving prior to being seen by health care provider (principal)

== ENCOUNTER 2023-11-08 15:19 | Emergency (ER) | payer MEDICARE ==
[2023-11-08 17:24] LABS: BASOPHILS PERCENT AUTO 0.1 % (0.1-1.3); EOSINOPHILS PERCENT AUTO 0.1 % (0.0-5.4); HEMATOCRIT 41.1 % (34.3-46.0); HEMOGLOBIN 13.7 g/dL (11.2-15.5); IMMATURE GRAN ABSOLUTE AUTO 0.11 K/uL (0.00-0.23); IMMATURE GRAN PERCENT AUTO 0.7 % (0.0-0.7); LYMPHOCYTES ABSOLUTE AUTO 1.55 K/uL (0.8-3.3); LYMPHOCYTES PERCENT AUTO 9.3 % (11.4-47.7); MEAN CORPUSCULAR HEMOGLOBIN 29.1 pg (31.6-35.5); MEAN CORPUSCULAR HGB CONC 33.3 g/dL (31.6-35.5); MEAN CORPUSCULAR VOLUME 87.4 fL (81.4-99.0); MONOCYTES ABSOLUTE AUTO 0.74 K/uL (0.20-0.90); MONOCYTES PERCENT AUTO 4.5 % (3.3-12.6); NEUTROPHILS ABSOLUTE AUTO 14.19 K/uL (1.0-7.6); NEUTROPHILS PERCENT AUTO 85.3 % (40.0-78.1); PLATELET COUNT,PLT 563 K/uL (130-375); WHITE BLOOD CELL COUNT,WBC 16.6 K/uL (3.2-11.0)
[2023-11-08 17:29] VITALS: BP 134/61
[2023-11-08 17:37] LABS: BASOPHILS ABSOLUTE AUTO 0.02 K/uL (0.00-0.10); EOSINOPHILS ABSOLUTE AUTO 0.01 K/uL (0.00-0.40)
[2023-11-08 17:39] VITALS: PULSE 78
[2023-11-08 17:52] LABS: BLOOD UREA NITROGEN,BUN 22 mg/dL (7-18); CALCIUM 9.1 mg/dL (8.5-10.1); CARBON DIOXIDE,CO2 25 mmol/L (21-32); CHLORIDE,CL 102 mmol/L (100-108); CREATININE 1.1 mg/dL (0.6-1.0); EST CRCL DRUG DOSING (CG) 33.86 mL/min; ESTIMATED GFR 53 mL/min (>60); GLUCOSE RANDOM 115 mg/dL (74-106); POTASSIUM,K 4.1 mmol/L (3.6-5.2); PRO B-TYPE NATRIUR PEPT,BNPPRO 183 pg/mL (5-125); SODIUM,NA 137 mmol/L (140-148)
[2023-11-08 17:54] LABS: ANION GAP 14.1 mmol/L (5.0-14.0); TROPONIN I HIGH SENSITIVITY < 4.0 pg/mL (<=60.3)
== END 2023-11-08 17:57 | disposition left against medical advice (07) ==
LOC: JP.ED 15:19
DX: R00.2 Palpitations (principal); I10 Essential (primary) hypertension; E78.00 Pure hypercholesterolemia, unspecified; E03.9 Hypothyroidism, unspecified; K21.9 Gastro-esophageal reflux disease without esophagitis; J44.9 Chronic obstructive pulmonary disease, unspecified; F17.210 Nicotine dependence, cigarettes, uncomplicated; Z90.49 Acquired absence of other specified parts of digestive tract; Z88.0 Allergy status to penicillin; Z91.030 Bee allergy status; Z88.1 Allergy status to other antibiotic agents; Z88.8 Allergy status to other drugs, medicaments and biological substances; Z79.51 Long term (current) use of inhaled steroids; Z79.82 Long term (current) use of aspirin; Z79.899 Other long term (current) drug therapy
CPT/HCPCS: 36415; 71046; 71046-26; 80048; 83880; 84484; 85025; 99285

== ENCOUNTER 2024-01-28 13:49 | Emergency (ER) | payer MEDICARE ==
[2024-01-28] MEDS ORDERED: Sodium Chloride 0.9% 10 ML Syringe FLUSH PRN (14:44)
[2024-01-28 14:57] LABS: BASOPHILS ABSOLUTE AUTO 0.05 K/uL (0.00-0.10); BASOPHILS PERCENT AUTO 0.5 % (0.1-1.3); EOSINOPHILS ABSOLUTE AUTO 0.27 K/uL (0.00-0.40); EOSINOPHILS PERCENT AUTO 2.7 % (0.0-5.4); HEMATOCRIT 40.3 % (34.3-46.0); IMMATURE GRAN ABSOLUTE AUTO 0.02 K/uL (0.00-0.23); IMMATURE GRAN PERCENT AUTO 0.2 % (0.0-0.7); LYMPHOCYTES ABSOLUTE AUTO 1.86 K/uL (0.8-3.3); LYMPHOCYTES PERCENT AUTO 18.5 % (11.4-47.7); MEAN CORPUSCULAR HEMOGLOBIN 29.7 pg (31.6-35.5); MEAN CORPUSCULAR HGB CONC 34.7 g/dL (31.6-35.5); MEAN CORPUSCULAR VOLUME 85.6 fL (81.4-99.0); MONOCYTES ABSOLUTE AUTO 0.83 K/uL (0.20-0.90); MONOCYTES PERCENT AUTO 8.3 % (3.3-12.6); NEUTROPHILS ABSOLUTE AUTO 7.03 K/uL (1.0-7.6); NEUTROPHILS PERCENT AUTO 69.8 % (40.0-78.1); PLATELET COUNT,PLT 437 K/uL (130-375); RED BLOOD CELL COUNT 4.71 M/uL (3.77-5.24); WHITE BLOOD CELL COUNT,WBC 10.1 K/uL (3.2-11.0)
[2024-01-28 15:17] LABS: APPEARANCE,URINE CLEAR (CLEAR); BILIRUBIN,URINE NEGATIVE (NEGATIVE); COLOR,URINE YELLOW (YELLOW); GLUCOSE,URINE NEGATIVE (NEGATIVE); KETONES,URINE TRACE mg/dL (NEGATIVE); LEUKOCYTE ESTERASE,URINE TRACE (NEGATIVE); NITRITE,URINE NEGATIVE (NEGATIVE); OCCULT BLOOD,URINE NEGATIVE (NEGATIVE); PH,URINE 6.5 (5.0-8.0); PROTEIN,URINE NEGATIVE (NEGATIVE); UROBILINOGEN,URINE 0.2 EU/dL (0.2-1.0)
[2024-01-28 15:20] LABS: A/G RATIO 1.1 (1.2-2.2); ALANINE AMINOTRANSFERASE,ALT 27 U/L (12-78); ALBUMIN 3.5 g/dL (3.4-5.0); ALKALINE PHOSPHATASE 60 U/L (46-116); ANION GAP 13.3 mmol/L (5.0-14.0); ASPARTATE AMNIOTRANSFERASE,AST 20 U/L (15-37); BILIRUBIN TOTAL 0.7 mg/dL (0.2-1.0); BLOOD UREA NITROGEN,BUN 14 mg/dL (7-18); C-REACTIVE PROTEIN < 0.50 mg/dL (<0.50); CALCIUM 9.1 mg/dL (8.5-10.1); CARBON DIOXIDE,CO2 25 mmol/L (21-32); CHLORIDE,CL 101 mmol/L (100-108); CREATININE 0.9 mg/dL (0.6-1.0); EST CRCL DRUG DOSING (CG) 42.72 mL/min; ESTIMATED GFR 67 mL/min (>60); GLUCOSE RANDOM 82 mg/dL (74-106); POTASSIUM,K 4.3 mmol/L (3.6-5.2); PROTEIN TOTAL,TP 6.8 g/dL (6.4-8.2); SODIUM,NA 135 mmol/L (140-148); TROPONIN I HIGH SENSITIVITY 4.3 pg/mL (<=60.3)
[2024-01-28 15:22] LABS: AMORPHOUS SEDIMENT,URINE NOT SEEN; BACTERIA,URINE FEW; EPITHELIAL CELLS,URINE RARE; MUCUS,URINE NOT SEEN; RBC,URINE 0-5 (0-5)
[2024-01-28] MEDS: Iopamidol 612 MG/ML 100 ML Bottle IV SCH (15:57)
[2024-01-28] MEDS: Sodium Chloride 0.9% 50 ML IV SCH (15:57)
[2024-01-28 16:04] VITALS: BP 145/72; PULSE 80
== END 2024-01-28 17:22 | disposition home or self-care (01) ==
LOC: JP.ED 13:49
DX: R10.11 Right upper quadrant pain (principal); I10 Essential (primary) hypertension; E78.00 Pure hypercholesterolemia, unspecified; J44.9 Chronic obstructive pulmonary disease, unspecified; K21.9 Gastro-esophageal reflux disease without esophagitis; E03.9 Hypothyroidism, unspecified; F17.210 Nicotine dependence, cigarettes, uncomplicated; Z90.49 Acquired absence of other specified parts of digestive tract; Z79.82 Long term (current) use of aspirin; Z79.899 Other long term (current) drug therapy; Z79.890 Hormone replacement therapy; Z88.1 Allergy status to other antibiotic agents; Z88.8 Allergy status to other drugs, medicaments and biological substances; Z88.0 Allergy status to penicillin; Z91.030 Bee allergy status
CPT/HCPCS: 36415; 74177; 80053; 81001; 83690; 84484; 85025; 86140; 87086; 93005; 99284; J3490; Q9967

== ENCOUNTER 2024-04-11 12:03 | Emergency (ER) | payer MEDICARE ==
[2024-04-11 12:29] VITALS: BP 132/88; PULSE 104
== END 2024-04-11 12:42 | disposition left against medical advice (07) ==
LOC: JP.ED 12:03
DX: Z53.21 Procedure and treatment not carried out due to patient leaving prior to being seen by health care provider (principal)

== ENCOUNTER 2024-04-17 10:52 | Emergency (ER) | payer MEDICARE ==
[2024-04-17 11:46] VITALS: PULSE 89
[2024-04-17 13:46] VITALS: BP 143/78
== END 2024-04-17 14:46 | disposition home or self-care (01) ==
LOC: JP.ED 10:52
DX: L03.115 Cellulitis of right lower limb (principal); S80.811D Abrasion, right lower leg, subsequent encounter; I10 Essential (primary) hypertension; J44.9 Chronic obstructive pulmonary disease, unspecified; K21.9 Gastro-esophageal reflux disease without esophagitis; E03.9 Hypothyroidism, unspecified; F17.210 Nicotine dependence, cigarettes, uncomplicated; Z90.49 Acquired absence of other specified parts of digestive tract; Z79.82 Long term (current) use of aspirin; Z79.899 Other long term (current) drug therapy; Z79.890 Hormone replacement therapy; Z88.8 Allergy status to other drugs, medicaments and biological substances; Z88.1 Allergy status to other antibiotic agents; Z88.0 Allergy status to penicillin; Z91.030 Bee allergy status; W54.1XXD Struck by dog, subsequent encounter
CPT/HCPCS: 99283

== ENCOUNTER 2024-04-29 12:44 | Emergency (ER) | payer MEDICARE ==
[2024-04-29 13:26] VITALS: BP 143/75; PULSE 87
== END 2024-04-29 14:31 | disposition home or self-care (01) ==
LOC: JP.ED 12:44
DX: L03.115 Cellulitis of right lower limb (principal); I10 Essential (primary) hypertension; Z88.0 Allergy status to penicillin; Z91.030 Bee allergy status; Z88.8 Allergy status to other drugs, medicaments and biological substances; Z79.82 Long term (current) use of aspirin; Z79.890 Hormone replacement therapy; Z79.899 Other long term (current) drug therapy; Z90.49 Acquired absence of other specified parts of digestive tract
CPT/HCPCS: 99282; 99283

== ENCOUNTER 2024-05-17 15:47 | Emergency (ER) | payer MEDICARE ==
[2024-05-17 16:18] VITALS: BP 151/74; PULSE 76
== END 2024-05-17 17:07 | disposition home or self-care (01) ==
LOC: JP.ED 15:47
DX: K58.9 Irritable bowel syndrome, unspecified (principal); F17.210 Nicotine dependence, cigarettes, uncomplicated; J44.9 Chronic obstructive pulmonary disease, unspecified; I10 Essential (primary) hypertension; K21.9 Gastro-esophageal reflux disease without esophagitis; E03.9 Hypothyroidism, unspecified; M19.90 Unspecified osteoarthritis, unspecified site; Z79.82 Long term (current) use of aspirin; Z79.899 Other long term (current) drug therapy; Z88.8 Allergy status to other drugs, medicaments and biological substances; Z88.1 Allergy status to other antibiotic agents; Z91.030 Bee allergy status
CPT/HCPCS: 99283